=== PATIENT | female | born 1965 | race Caucasian/White ===

== ENCOUNTER 2017-07-16 21:20 | Emergency (ER) | payer SELFPAY ==
[~2017-07-16] VITALS: Ht 172.7 cm; Wt 63.0 kg
[~2017-07-16 21:20] MED LIST: FLV400 PO; MECL1TAB42 PO
[2017-07-16 21:27] VITALS: TEMP 36.6; Ht 172.7 cm; Wt 63.0 kg
[2017-07-16] MEDS ORDERED: LIDOCAINE/EPINEPH/TETRACAINE 1 EA SYR EXT STA (21:57)
[2017-07-16] MEDS ORDERED: LIDOCAINE/EPINEPHRINE 1% 20 ML VIAL INFIL STA (21:57)
--- NOTE | 2017-07-16 22:05 | EMERGENCY ROOM VISIT NOTE ---
ED Visit Note First contact with patient: 21:43 CHIEF COMPLAINT: Facial laceration HISTORY OF PRESENT ILLNESS: This 52-year-old female patient presents emergency department, ambulatory, with her , complaining of a laceration to the anterior chin, and through to the inner out of lip. The patient states "I tripped over my feet", and states she face planted into the corner of a trunk which contained [place] decorations. The incident occurred approximately 9 minutes prior to arrival. The patient states there was initially a significant amount of bleeding, however was relatively easy to control. The patient states initially after the incident, she was confused and fell like she "knocked myself silly". She states she was having difficulty keeping her balance, and was feeling slow and head. She denies any headache, loss of consciousness, vomiting, nausea, or dizziness. She does report some blurry vision. The patient does admit to drinking 2-3 glasses of wine today, and states she did smoke marijuana. Denies neck pain. The patient rates the pain as sharp and 8/ 10. The patient's tetanus shot is up to date. REVIEW OF SYSTEMS: A 6 system review of systems was completed with positives and pertinent negatives listed in the HPI. ALLERGIES: Clarithromycin MEDICATIONS: Soma, Restoril PMH: Vertigo, TMJ SOCIAL HISTORY: The patient lives locally with family. She admits to regular alcohol use. She admits to smoking marijuana consistently. She also smokes one pack of cigarettes per day. PHYSICAL EXAM: Vital Signs: Reviewed Nurse's notes, vital signs stable. GENERAL : This is a 52-year-old female, in no acute distress, well-developed, well- nourished. The patient's speech does appear slow and slurred, however her states this does not seem significantly different than normal. NEURO: The patient is alert and oriented to person place and time. No focal neurological defects. EYES: Pupils are slightly constricted, but round, equal , and react to light. EOMI. EARS: No hemotympanum. NECK: Supple. No cervical spine tenderness. FACE: No facial bone tenderness or mandibular tenderness. The mouth can open fully. The teeth are well aligned. The #9 tooth is chipped. SKIN: There are 2-2 cm lacerations on the anterior chin. The edges gape apart with traction. The lacerations do communicate into the mouth/inner lip. There is no active bleeding and no foreign material in the wound. There are no deep structures present. Capillary refill less than two seconds. Normal sensation to light and sharp touch. RADIOLOGY: CT OF THE HEAD WITHOUT CONTRAST FINDINGS: No acute intracranial hemorrhage, midline shift or mass effect is present. Ventricular system is normal. Basilar cisterns are patent. There are no extra-axial collections. Mild atrophy is noted. Coffey-white differentiation is maintained. A small right maxillary sinus air-fluid level is noted. The fluid is low attenuation. There is no calvarial fracture. The appearance of the temporomandibular joints is asymmetric. Specifically, the right mandibular condyle is not located within the glenoid fossa. In addition, there is chronic deformity of the right mandibular condyle. IMPRESSION: 1. No acute intracranial findings. 2. No calvarial fracture. 3. Asymmetric appearance of the temporomandibular joints with right mandibular condyle not located within the glenoid fossa. This could be correlated with physical exam to exclude unilateral TMJ dislocation. 4. Right maxillary sinusitis, possibly acute. CT OF THE CERVICAL SPINE WITHOUT CONTRAST FINDINGS: Alignment of the cervical spine is anatomic. Vertebral body heights are maintained. There is no acute fracture. The craniocervical junction is intact. There is no prevertebral edema. Minimal multilevel degenerative changes are present. Moderate emphysema is noted within visualized portions of the lung apices. IMPRESSION: 1. No acute cervical spine fracture or subluxation. 2. Moderate emphysema within visualized portions of the lung apices. CT FACIAL: No acute facial fractures seen, old mandible fracture, no obvious mandibular dislocation, sinus disease in the right maxillary sinus EMERGENCY DEPARTMENT COURSE: I examined the patient. Because the patient appears to be intoxicated, CT scan of the head and C-spine were ordered and reviewed by myself and radiologist. CT head showed a possible TMJ dislocation, and the patient complained of pain in the right TMJ, so CT face was ordered and reviewed as above. The patient does have history of mandibular fracture many years ago. Verbal consent was obtained to perform the procedure. LET gel was applied to the outer lip and allowed to sit for approximately 40 minutes. Using sterile technique the wound was cleansed with Betadine. The area was sterilely draped. 2 ml of 1% lidocaine with epinephrine was used to anesthetize the laceration within the mouth. Once the patient was anesthetized, the wound was copiously irrigated under pressure with sterile saline. The wound was explored and was as described above. The laceration was repaired using 5 simple interrupted 5-0 vicryl sutures with the wound edges being well approximated. The external lacerations were each repaired using 6 simple interrupted 6-0 nylon sutures, for a total of 12 sutures, with the wound edges being well approximated. The patient tolerated the procedure well. Hemostasis was achieved. The area was cleaned with sterile saline and dressed with bacitracin ointment. The patient was given her first dose of Amoxicillin here in the ED. She was given chlorhexidine mouthwash as well as benzocaine and dental wax to help with the pain. She did request opiate pain medication, but due to the patient's intoxication and drug/alcohol use this evening, I am not comfortable giving her narcotic pain medication. She was given 600mg ibuprofen. The patient was discharged home in good condition. I attest that I have personally reviewed the patient's current medication list. Patient was found to have normal blood pressure on screening and does not require follow-up. DIFFERENTIAL DIAGNOSIS: Laceration, contusion, dental fracture, facial bone fracture, TMJ dislocation, contusion, concussion, ICH, and others DIAGNOSIS: Facial laceration, dental fracture, fall from standing Current/Historical Medications Scheduled Amoxicillin (Amoxil), 1 CAP PO TID Carisoprodol (Soma), 350 MG PO TID Scheduled PRN Albuterol Sulfate (Proventil Hfa), 2 PUFFS INH UD PRN for SOB/Wheezing Alprazolam (Xanax), 1 MG PO DAILY PRN for Anxiety Fluconazole (Diflucan), 150 MG PO DAILY PRN for thrush Allergies Coded Allergies: Clarithromycin (Verified Allergy, Intermediate, RASH, 01/22/15) ABLE TO TAKE Z-RONALD, Vital Signs Date Time Temp Pulse Resp B/P (MAP) Pulse Ox O2 Delivery O2 Flow Rate FiO2 07/17/17 01:13 88 16 104/70 93 07/16/17 23:50 90 16 92/60 92 Room Air 07/16/17 21:27 36.6 107 18 116/86 91 Room Air Medications Administered Medications (Trade) Dose Ordered Sig/Olga Route Start Time Stop Time Status Last Admin Dose Admin Tetracaine/ Epinephrine/ Lidocaine (L.e.t. Gel 4%/ 1:100/0.5%) 1 ea NOW STAT EXT 07/16/17 21:57 07/16/17 22:00 DC 07/16/17 22:07 1 EA Amoxicillin (Amoxil 250MG Home Pack) 1 homepack UD ONCE PO 07/17/17 00:45 07/17/17 00:46 DC 07/17/17 00:45 1 HOMEPACK Amoxicillin (Amoxil Cap) 500 mg NOW STAT PO 07/17/17 00:33 07/17/17 00:35 DC 07/17/17 00:33 500 MG Ibuprofen (Motrin Tab) 600 mg NOW STAT PO 07/17/17 00:33 07/17/17 00:35 DC 07/17/17 00:33 600 MG Chlorhexidine Gluconate (Peridex Oral Soln) 15 ml BID STAT MT 07/17/17 00:35 07/17/17 00:36 DC 07/17/17 00:35 15 ML Amoxicillin (Amoxil Cap) 500 mg STK-MED ONCE PO 07/17/17 00:44 07/17/17 00:45 DC 07/17/17 00:44 500 MG Departure Information Impression Primary Impression: Facial laceration Additional Impression: Fall from standing Dispostion Home / Self-Care Condition GOOD Prescriptions Fluconazole (DIFLUCAN) 150 Mg Tab 150 MG PO DAILY Y for thrush for 1 Day, #1 TAB Prov: Alma Keller PA-C 07/17/17 Amoxicillin (AMOXIL) 500 Mg Cap 1 CAP PO TID for 5 Days, #15 CAP Prov: Alma Keller PA-C 07/17/17 Referrals Godwin Wilson M.D. (PCP) Patient Instructions ED Fx Tooth, ED Laceration Facial Sutr Tape, ED Laceration Mouth, [facility] Additional Instructions You have received 17 sutures on your anterior chin/interior lip. 5 of the sutures within the inner lip are dissolvable and will not need to be removed. 12 of the sutures are NOT dissolvable and WILL need to be removed by a health care provider in 4-6 days. You can return to the Emergency Department or contact your Primary Care Provider to have the sutures removed. Proper wound care is essential for adequate wound healing and infection prevention. You can shower and clean the wound with soap and water. Do not scour over the wound, pat dry with a towel. Do not submerse the wound (i.e. bathe or dish wash) until the sutures have been removed. You can use an antibiotic ointment with a dressing over the wound for the next 3-4 days. After this time you may leave the wound dry and open to the air. If crust develops over the wound you can use a Q-tip to apply a 1:1 peroxide:water solution to clean the wound. Look for signs of infection of the wound including: increased pain, swelling, foul discharge, streaking, or increased temperature. If any of these are noticed you should return to the Emergency Department for further assessment and treatment. As with any laceration you may have received nerve damage to the surrounding tissues. This damage may or may not be permanent. You should keep the area covered with sunscreen for the first 6 months to 1 year when at risk for exposure to help minimize scarring. You can also use scar reducing creams or Vitamin E oil to help minimize scarring. For pain control, you can use the following [id number] medicines (if >12 yo): Ibuprofen(Motrin, Advil) may be used for fever or pain. Use 600mg every six hours as needed. Take with food. Avoid using more than 2400mg in a 24 hour period. Do not use 2400mg per day for more than three consecutive days without physician direction. Prolonged inappropriate use can lead to stomach upset or ulcers. (AND/OR) Acetaminophen(Tylenol) may be used for fever or pain. Use 1000mg every six hours as needed. Avoid using more than 3000mg in a 24 hour period. You may use the topical dental ointment for your dental pain. Use the dental wax to protect the fractured tooth until evaluation by a dentist. Swish and spit with the mouthwash twice daily, after breakfast and supper, for 1 week. You were prescribed amoxicillin to be taken 3 times daily for 5 days. This is an antibiotic. All antibiotics have the potential to cause diarrhea. Stop this medication and contact a medical provider if you were to develop any significant adverse side effects including: wheezing, shortness of breath, passing out, vomiting, or a diffuse rash. Always take antibiotics as directed and COMPLETE the ENTIRE course regardless of the improvement of your symptoms. You were prescribed Diflucan to take ONLY if you experience thrush or candidiasis. Return to the emergency department if your symptoms worsen despite treatment course outlined above. Problem Qualifiers Primary Impression: Facial laceration Encounter type: initial encounter Qualified Codes: S01.81XA - Laceration without foreign body of other part of head, initial encounter Additional Impression: Fall from standing Encounter type: initial encounter Qualified Codes: W19.XXXA - Unspecified fall, initial encounter
[2017-07-16] MEDS ORDERED: CARI350T28 PO (22:13)
[2017-07-16] MEDS ORDERED: ALBUAER INH (22:13)
[2017-07-16] MEDS ORDERED: ALPR1TAB3 PO (22:13)
--- NOTE | 2017-07-16 22:44 | DIAGNOSTIC IMAGING REPORT ---
CT OF THE HEAD WITHOUT CONTRAST CLINICAL HISTORY: Head injury, intoxicated, slurred speech. COMPARISON STUDY: No previous studies for comparison. TECHNIQUE: Helical axial images of the head were obtained without IV contrast. Automated exposure control was utilized for the study. A dose lowering technique was utilized adhering to the principles of ALARA. FINDINGS: No acute intracranial hemorrhage, midline shift or mass effect is present. Ventricular system is normal. Basilar cisterns are patent. There are no extra-axial collections. Mild atrophy is noted. Coffey-white differentiation is maintained. A small right maxillary sinus air-fluid level is noted. The fluid is low attenuation. There is no calvarial fracture. The appearance of the temporomandibular joints is asymmetric. Specifically, the right mandibular condyle is not located within the glenoid fossa. In addition, there is chronic deformity of the right mandibular condyle. IMPRESSION: 1. No acute intracranial findings. 2. No calvarial fracture. 3. Asymmetric appearance of the temporomandibular joints with right mandibular condyle not located within the glenoid fossa. This could be correlated with physical exam to exclude unilateral TMJ dislocation. 4. Right maxillary sinusitis, possibly acute. Electronically signed by: Heriberto Fererra M.D. 07/16/2017 10:43 PM Dictated Date/Time: 07/16/2017 10:38 PM
--- NOTE | 2017-07-16 22:48 | DIAGNOSTIC IMAGING REPORT ---
CT OF THE CERVICAL SPINE WITHOUT CONTRAST CLINICAL HISTORY: Head injury, intoxicated, neck pain. COMPARISON STUDY: No previous studies for comparison. TECHNIQUE: Helical axial images of the cervical spine were obtained without IV contrast. Sagittal and coronal reconstructions were viewed. A dose lowering technique was utilized adhering to the principles of ALARA. FINDINGS: Alignment of the cervical spine is anatomic. Vertebral body heights are maintained. There is no acute fracture. The craniocervical junction is intact. There is no prevertebral edema. Minimal multilevel degenerative changes are present. Moderate emphysema is noted within visualized portions of the lung apices. IMPRESSION: 1. No acute cervical spine fracture or subluxation. 2. Moderate emphysema within visualized portions of the lung apices. Electronically signed by: Heriberto Ferrera M.D. 07/16/2017 10:47 PM Dictated Date/Time: 07/16/2017 10:43 PM
[2017-07-17] MEDS ORDERED: AMOXICILLIN 500 MG CAP PO STA (00:33)
[2017-07-17] MEDS ORDERED: IBUPROFEN 600 MG TAB PO STA (00:33)
[2017-07-17] MEDS ORDERED: CHLORHEXIDINE GLUCONATE 0.12% 480 ML MT STA (00:35)
[2017-07-17] MEDS ORDERED: AMOXICILLIN 250 MG CAP PO ONE (00:44)
[2017-07-17] MEDS ORDERED: AMOXICILLIN HOME PACK 250 MG/TAB PO ONE (00:45)
[2017-07-17] MEDS ORDERED: AMOX500C3 PO (00:57)
[2017-07-17] MEDS ORDERED: FLUC150T PO (00:57)
[2017-07-17 01:13] VITALS: BP 104/70; PULSE 88; O2SAT 93
--- NOTE | 2017-07-17 07:38 | DIAGNOSTIC IMAGING REPORT ---
CT SCAN OF THE FACIAL BONES WITHOUT IV CONTRAST CLINICAL HISTORY: Intoxication. Head injury. Clinical concern for right temporomandibular joint injury. COMPARISON STUDY: CT of the brain performed concurrently on 07/16/2017. TECHNIQUE: High-resolution CT scan of the facial bones is performed. Images are reviewed in the axial, sagittal, and coronal planes. IV contrast was not administered for this examination. A dose lowering technique was utilized adhering to the principles of ALARA. CT DOSE: 660.96 mGy.cm FINDINGS: The skeletal structures are well mineralized. There is no evidence of facial bone fracture. The bony orbits are intact and the orbital contents are within normal limits. The zygomatic arches, nasal bones, and pterygoid plates are preserved. There is anterior dislocation of the right temporomandibular joint. The left temporomandibular joint is in appropriate position. The maxilla and mandible are intact. Deformity right mandible condyle may represent the sequelae of remote trauma. There are no layering blood products within the paranasal sinuses. There is an air-fluid level in the right maxillary antrum. A tiny retention cyst is noted in the left maxillary antrum. Minimal secretions are seen in the right sphenoid sinus. The remaining paranasal sinuses and the mastoid air cells are clear. The visualized calvarium and upper cervical spine are maintained. Mild cervical spondylosis is noted. Partially imaged brain parenchyma is within normal limits. A periapical lucency is identified around a left maxillary molar seen on image #193. Soft tissue injury is noted overlying the right aspect of the mandible. IMPRESSION: 1. There is anterior dislocation seen at the right temporomandibular joint. 2. No facial bone fracture is identified. 3. A periapical lucency is noted involving a left maxillary molar. Follow-up with dentistry is recommended. 4. Soft tissue injury is noted overlying the right aspect of the mandible. 5. Paranasal sinus disease as above. 6. Deformity of the right mandibular condyle may be related to remote trauma. Electronically signed by: Michael Desir M.D. 07/17/2017 7:36 AM Dictated Date/Time: 07/17/2017 7:30 AM
== END 2017-07-17 01:15 | disposition home or self-care (01) ==
LOC: C.EDB 21:22 → C.EDD 07-17 01:15
DX: S01.81XA Laceration without foreign body of other part of head, initial encounter (principal); S02.5XXA Fracture of tooth (traumatic), initial encounter for closed fracture; W01.198A Fall on same level from slipping, tripping and stumbling with subsequent striking against other object, initial encounter; F17.210 Nicotine dependence, cigarettes, uncomplicated

== ENCOUNTER 2017-07-24 09:52 | Emergency (ER) | payer SELFPAY ==
[~2017-07-24] VITALS: Ht 172.7 cm; Wt 63.1 kg
[~2017-07-24 09:52] MED LIST changes: +ALBUAER INH; +ALPR1TAB3 PO; +CARI350T28 PO; -FLV400 PO; -MECL1TAB42 PO
[2017-07-24 09:54] VITALS: TEMP 36.5; Ht 172.7 cm; Wt 63.1 kg
--- NOTE | 2017-07-24 10:49 | EMERGENCY ROOM VISIT NOTE ---
ED Visit Note First contact with patient: 10:29 CHIEF COMPLAINT: Suture removal HPI: This patient returns to the ED today for removal of sutures that were placed 8 days ago. There has been no swelling, redness, or drainage from the wound. The patient feels like the laceration is healing well. She is concerned because she states she was unaware of TMJ dislocation until approximately 5 days after the injury and would like to know why this was not addressed while she was here that night. REVIEW OF SYSTEMS: A complete 10 point review of systems was reviewed with the patient with pertinent positives and negatives as per history of present illness. All else were negative. PMH: The patient is healthy; there is no significant medical or surgical history. SOCIAL HISTORY: Patient lives locally with family. She denies drug, alcohol use. PHYSICAL EXAM: Vital Signs: Reviewed Nurse's notes. There is a sutured wound on the anterior chin with no signs of infection. There is no erythema, swelling , or tenderness. EMERGENCY DEPARTMENT COURSE: The sutures were removed without any difficulty and there was no separation of the wound edges. I discussed with the patient that [facility] had reviewed the CT scan and did not note any dislocation, so the dislocation was not noted until radiology here over read the scan next day. The patient was contacted by the RN real estate sales supervisor, and did not answer her phone. The first time the real estate sales supervisor was successful at discussing the case with the patient was several days after the incident. I discussed with the patient that when she was here, she was very difficult to examine due to her mental state. She states she was having difficulty mentating properly for several days after the accident and was unaware of the damage done to the jaw. She states she continues to be in excruciating pain, and her dentist provided her with Tylenol #3 which she would like refilled. She also states it is early for her Soma refill, but she has taken all of the medication already. She requests a refill of this as well. I advised her that I would not refill these medications and that she will need to be seen by her PCP for ongoing pain management. Discharge instructions reviewed and the patient was discharged home in good condition. I attest that I have personally reviewed the patient's current medication list. Patient was found to have normal blood pressure on screening and does not require follow-up. Differential diagnosis includes dehiscence, laceration follow-up, removal of sutures, jaw dislocation, and others DIAGNOSIS: Healing laceration and suture removal Current/Historical Medications Scheduled Carisoprodol (Soma), 350 MG PO TID Scheduled PRN Albuterol Sulfate (Proventil Hfa), 2 PUFFS INH UD PRN for SOB/Wheezing Alprazolam (Xanax), 1 MG PO DAILY PRN for Anxiety Allergies Coded Allergies: Clarithromycin (Verified Allergy, Intermediate, RASH, 01/22/15) ABLE TO TAKE Z-RONALD, Vital Signs Date Time Temp Pulse Resp B/P (MAP) Pulse Ox O2 Delivery O2 Flow Rate FiO2 07/24/17 11:03 85 16 95 07/24/17 09:54 36.5 100 17 160/95 95 Room Air Departure Information Impression Primary Impression: Encounter for removal of sutures Additional Impression: Facial laceration Dispostion Home / Self-Care Condition GOOD Referrals No Doctor, Assigned (PCP) Patient Instructions ED Wound Check Sutr Remove No Infec, [employer] [facility] [place] Additional Instructions You were seen in the emergency department today for a suture removal. These were removed without complications. You may use vitamin E oil on the laceration to help prevent scarring. Please keep the wound clean and dry. As discussed, you need to follow up outpatient with her primary care provider, dentist, and/or maxillofacial surgeon to discuss ongoing pain management and refill of your Soma. Ibuprofen(Motrin, Advil) may be used for fever or pain. Use 600mg every six hours as needed. Take with food. Avoid using more than 2400mg in a 24 hour period. Do not use 2400mg per day for more than three consecutive days without physician direction. Prolonged inappropriate use can lead to stomach upset or ulcers. (AND/OR) Acetaminophen(Tylenol) may be used for fever or pain. Use 1000mg every six hours as needed. Avoid using more than 3000mg in a 24 hour period. As discussed, [facility] did not note TMJ dislocation. This was noted with the radiologist at [facility] the next morning. This is why you did not receive notification/why the dislocation was not addressed the night of the accident. Attempts were made on the to contact you with no answer. Please follow-up with maxillofacial surgery regarding ongoing care associated with the dislocation. Return to the ED for intractable pain, inability to open/close the mouth, fever , chills, or other concerning symptoms. Problem Qualifiers Additional Impression: Facial laceration Encounter type: subsequent encounter Qualified Codes: S01.81XD - Laceration without foreign body of other part of head, subsequent encounter
[2017-07-24 11:03] VITALS: BP 153/91; PULSE 85; O2SAT 95
== END 2017-07-24 11:04 | disposition home or self-care (01) ==
LOC: C.EDB 09:54 → C.EDD 11:04
DX: S01.81XD Laceration without foreign body of other part of head, subsequent encounter (principal); X58.XXXD Exposure to other specified factors, subsequent encounter; Z88.1 Allergy status to other antibiotic agents

== ENCOUNTER 2021-01-21 07:40 | Inpatient (IN) ==
[2021-01-21] MEDS ORDERED: SODIUM CHLORIDE 0.9% 1000ML 1,000 ML IV ONE (08:03)
[2021-01-21] MEDS ORDERED: ACETAMINOPHEN 1,000 MG/100 ML VIAL IV STA (08:06)
[2021-01-21] MEDS ORDERED: dexAMETHasone**PF** 10 MG/ML VIAL IV ONE (08:06)
--- NOTE | 2021-01-21 08:13 | Emergency Department Note ---
Impression & Plan Bilateral leg weakness, Bilateral leg paresthesia, Misuse of prescription only drugs ED Provider Note NAME: AGAPITO STRAUSS AGE: 55 SEX: F ARRIVES VIA: Ambulance INFORMANT: Patient, ED PROVIDER(S): Mihir Tran MD CHIEF COMPLAINT: chest pain, weakness PLAN: Disposition: Admit MEDICAL DECISION MAKING: The patient is a pleasant 55-year-old woman with a past medical history of asthma, anxiety who presents to the emergency department for evaluation of progressive worsening numbness and tingling with the evolution of weakness and both legs as well as her report of numbness and tingling her lower abdomen. She reports she feels her symptoms began with tingling in her feet and have been steadily moving upward. She reports having intermittent chest tightness as well with these symptoms that has been constant since waking up this morning. She reports she had a PCP appointment this morning but was unable to walk and so EMS was called. The patient reports she called her sister initially who opened the door to allow EMS to enter the home. Patient was seen in emergency department for the symptoms on 01/17 with unremarkable work-up including CT of the lumbar spine. She denies any cough, congestion, shortness of breath, nausea, vomiting, diarrhea or constipation. She does feel as though she had to urinate this morning but was not unable to walk to the bathroom. She also wonders if she moved her bowels on the way here but in the end feels as though she only passed gas. Denies any prior history of similar symptoms. She denies any known tick bites. She reports drinking alcohol infrequently and denies daily use. Of note, the patient's sister later called and did inform the nurse of her concern regarding her awareness that the patient recently filled prescriptions for Xanax and carisoprodol at the end of December for 90 tablets each for her month supply which the patient has used completely. Patient reports she was using these because of her burning and tingling in her feet. On arrival patient anxious appearing no acute stress, afebrile stable vital signs. She appears clinically dry. She has 4/5 strength in bilateral lower extremities. Reflexes are 1-2+ bilaterally. There is no clonus. She has 5/5 strength in bilateral upper extremities. Intact [id number] and alternating palms. EKG without overt acute ischemia. Chest x-ray negative for acute cardiopulmonary process. WBC, H/H and platelets within normal limits. Chemistry without metabolic acidosis. Potassium 3.1 electrolytes otherwise unremarkable. LFTs without significant abnormality. Troponin negative/undetectable. Lipase is not elevated. UA without evidence of infection. Serum alcohol undetectable. Lyme screen was negative. COVID-[address] of the head and C-spine negative for acute process. CTA of the chest and abdomen/pelvis was performed. No acute findings were identified. Note is made of "mild ectasia of the ascending thoracic aorta which measures up to 3.6 cm in diameter." Given the persistent of the patient's lower extremity weakness which does show objective weakness on exam reasonable to admit the patient for further management. Guillain-Don not likely given intact reflexes. Given the patient's admitted misuse of her prescribed muscle relaxer suspect this is likely the etiology to her objective weakness. Case was discussed with CHARLES Ortiz with [place]. Osor[place] [facility] [place], who will evaluate the patient for admission. Triage Nursing notes reviewed and agree them. Prior medical records reviewed Vital Signs: reviewed and remarkable for no significant abnormalities Differential diagnosis: Infection, dehydration, metabolic abnormality, hypo/hyperglycemia, electrolyte disturbance, anemia, hypoxia, cardiac sources, intracerebral event, toxicologic, neurologic, as well as other pathologies. ER treatment provided: See below. Diagnostics interpreted by me: ECG: Normal sinus rhythm, 83 bpm, no ectopy, left posterior fascicular block, nonspecific ST and T wave abnormality, no overt ST elevation. QRS 82, QTc 430. Cardiac Monitoring: An order for continuous cardiac monitoring was placed and demonstrated Normal sinus rhythm, 83 bpm, no ectopy. Laboratory studies: See below Imaging studies: See below Consultation(s): CHARLES Ortiz with Dr. [place] [facility] [place], who will evaluate the patient for admission. HPI: The patient is a pleasant 55-year-old woman with a past medical history of asthma, anxiety who presents to the emergency department for evaluation of progressive worsening numbness and tingling with the evolution of weakness and both legs as well as her report of numbness and tingling her lower abdomen. She reports she feels her symptoms began with tingling in her feet and have been steadily moving upward. She reports having intermittent chest tightness as well with these symptoms that has been constant since waking up this morning. She reports she had a PCP appointment this morning but was unable to walk and so EMS was called. The patient reports she called her sister initially who opened the door to allow EMS to enter the home. Patient was seen in emergency department for the symptoms on 01/17 with unremarkable work-up including CT of the lumbar s pine. She denies any cough, congestion, shortness of breath, nausea, vomiting, diarrhea or constipation. She does feel as though she had to urinate this morning but was not unable to walk to the bathroom. She also wonders if she moved her bowels on the way here but in the end feels as though she only passed gas. Denies any prior history of similar symptoms. She denies any known tick bites. She reports drinking alcohol infrequently and denies daily use. Of note, the patient's sister later called and did inform the nurse of her concern regarding her awareness that the patient recently filled prescriptions for Xanax and carisoprodol at the end of December for 90 tablets each for her month supply which the patient has used completely. Patient reports she was using these because of her burning and tingling in her feet. ROS: See above HPI for pertinent positives & negatives. A total of 10 systems reviewed and were otherwise negative. PAST MEDICAL HISTORY:See Below PAST SURGICAL HISTORY:See Below FAMILY HISTORY:See Below SOCIAL HISTORY:See Below HOME MEDICATIONS:See Below ALLERGIES:See Below VITALS:See Below PHYSICAL EXAMINATION: GENERAL: Awake, alert, anxious-appearing, in no distress HENT: Normocephalic, atraumatic. Oropharynx with dry mucous membranes and otherwise unremarkable. EYES: Normal conjunctiva. Sclera non-icteric. EOMI. No nystamgus. PEARRL. NECK: Supple. No nuchal rigidity. FROM. No JVD. RESPIRATORY: Clear to auscultation. CARDIAC: Regular rate, normal rhythm. Extremities warm and well perfused. Pulses equal. ABDOMEN: Soft, non-distended. No tenderness to palpation. No rebound or guarding. No masses. RECTAL: Deferred. MUSCULOSKELETAL: Chest examination reveals no tenderness. The back is symmetrical on inspection without obvious abnormality. There is no CVA tenderness to palpation. No joint edema. LOWER EXTREMITIES: Calves are equal size bilaterally and non-tender. No edema. No discoloration. NEURO: Cranial nerves II-XII grossly intact. 5/5 strength in SILT in bilateral upper extremities. 4/5 strength and SI LT bilateral lower extremities. DTRs 1- 2+ bilateral lower extremities. No clonus. Intact [id number]-btid and alternating palms. SKIN: No rash or jaundice noted. Mihir Tran MD Past Med/Surg History Medical History Adrenal nodule Aortic ectasia, thoracic Asthma DJD (degenerative joint disease) Rib fracture Smoker Social History Smoking Status: Current every day smoker Tobacco Type: Cigarettes Second Hand Exposure: Yes; Do You Dip or Chew Tobacco: No; Tobacco Cessation Education Requested by Patient: No Hx Alcohol Use: Yes (occasionally) Alcohol type: wine Hx Substance Use: Yes Last Used Substance Other:: 20 years ago Substance Use Type Other:: barbituates Preferred Language: Irish Communication Ability: Effective Lieutenant Ballistics Required: No Beliefs That Will Affect Care: Yazidi Yazidi Beliefs: Jehovah'S Witness Current Living Situation: Family and Other Current Living Situation Comment: Left domestic partner in December, now staying with sister Other Information That Helps Us Care for You: No Feels Safe at Home: Yes Safety Concerns: Feels Safe At This Time Assistive Devices: Cane and Glasses Assistive Devices Comment: Cane at home Allergies Allergies Allergy/AdvReac Type Severity Reaction Status Date / Time clarithromycin Allergy Intermediate RASH Verified 01/21/21 08:18 Home Meds Home Medications Medication Instructions Recorded Confirmed acetaminophen 500 mg tablet 1,000 mg PO TID PRN 12/29/20 01/21/21 (Tylenol Extra Strength) albuterol sulfate 90 mcg/actuation 2 puff INHALATION QID PRN 12/29/20 01/21/21 aerosol inhaler alprazolam 1 mg tablet 1 mg PO TID PRN 12/29/20 01/21/21 carisoprodol 350 mg tablet 350 mg PO TID 12/29/20 01/21/21 ibuprofen 200 mg tablet 600 - 800 mg PO Q6H PRN 12/29/20 01/21/21 Results & Data (ED) Vital Signs Vital Signs - 24 hr 01/21/21 07:45 01/21/21 07:52 01/21/21 08:00 Temperature 36.8 C Temperature Source Oral Pulse Rate 85 85 102 H Pulse Rate from SpO2 Sensor 85 87 Respiratory Rate 16 18 19 Blood Pressure 106/77 106/77 109/79 Blood Pressure Mean 86 86 89 Pulse Oximetry 98 99 100 Oxygen Delivery Method Room Air Sepsis Recent Fever Within 48 Hours No Sepsis New/Unexplained Change in Mental Status No Sepsis Action Taken by Nursing No Action Required 01/21/21 08:21 01/21/21 08:33 01/21/21 09:00 Temperature Temperature Source Pulse Rate 94 H Pulse Rate from SpO2 Sensor Respiratory Rate 16 Blood Pressure Blood Pressure Mean Pulse Oximetry 100 Oxygen Delivery Method Room Air Sepsis Recent Fever Within 48 Hours Sepsis New/Unexplained Change in Mental Status Sepsis Action Taken by Nursing 01/21/21 09:35 01/21/21 10:00 01/21/21 10:30 Temperature Temperature Source Pulse Rate 72 68 75 Pulse Rate from SpO2 Sensor 68 75 Respiratory Rate 14 16 19 Blood Pressure 120/84 133/87 Blood Pressure Mean 96 102 Pulse Oximetry 95 97 Oxygen Delivery Method Sepsis Recent Fever Within 48 Hours Sepsis New/Unexplained Change in Mental Status Sepsis Action Taken by Nursing 01/21/21 11:00 Temperature Temperature Source Pulse Rate 67 Pulse Rate from SpO2 Sensor 68 Respiratory Rate 16 Blood Pressure 133/84 Blood Pressure Mean 100 Pulse Oximetry 96 Oxygen Delivery Method Sepsis Recent Fever Within 48 Hours Sepsis New/Unexplained Change in Mental Status Sepsis Action Taken by Nursing Laboratory Data Attestation: I reviewed the patient's lab results. Result diagrams: 01/21/21 08:26 01/21/21 08:26 Lab Results 01/21/21 01/21/21 01/21/21 Range/Units 08:20 08:25 08:26 WBC 6.91 (4.8-10.8) K/uL RBC 4.49 (4.2-5.4) M/uL Hgb 14.3 (12.0-16.0) g/dL Hct 41.6 (37-47) % MCV 92.7 (80-100) fL MCH 31.8 (25-34) pg MCHC 34.4 (32-36) g/dL RDW Std Deviation 50.7 H (36.4-46.3) fL RDW Coeff of Senthil 15.1 H (11.5-14.5) % Plt Count 360 (130-400) K/uL MPV 9.5 (7.4-10.4) fL Immature Gran % (Auto) 0.1 % Neut % (Auto) 55.5 % Lymph % (Auto) 36.3 % [place] % (Auto) 7.4 % Eos % (Auto) 0.4 % Baso % (Auto) 0.3 % Neut # (Auto) 3.83 (1.4-6.5) K/uL Lymph # (Auto) 2.51 (1.2-3.4) K/uL [place] # (Auto) 0.51 (0.11-0.59) K/uL Eos # (Auto) 0.03 (0-0.5) K/uL Baso # (Auto) 0.02 (0-0.2) K/uL Immature Gran # (Auto) 0.01 (0.00-0.02) K/uL ESR (0-30) mm/hr Sodium (136-145) mmol/L Potassium (3.5-5.1) mmol/L Chloride (98-107) mmol/L Carbon Dioxide (21-32) mmol/L Anion Gap (3-11) BUN (7-18) mg/dl Creatinine (0.6-1.2) mg/dl Est Cr Clr Drug Dosing ml/min Est GFR ( Amer) ml/min Est GFR (Non-Af Amer) ml/min BUN/Creatinine Ratio (10-20) Glucose (70-99) mg/dl Estimat Average Glucose mg/dl Hemoglobin A1c (4.5-5.6) % Calcium (8.5-10.1) mg/dl Phosphorus (2.5-4.9) mg/dl Magnesium (1.8-2.4) mg/dl Total Bilirubin (0.2-1) mg/dl AST (15-37) U/L ALT (12-78) U/L Alkaline Phosphatase (45-117) U/L Total Creatine Kinase 72 (26-192) U/L Troponin I (0-0.045) ng/ml C-Reactive Protein 1.51 H (0-0.29) mg/dl Total Protein (6.4-8.2) gm/dl Albumin (3.4-5.0) gm/dl Globulin (2.5-4.0) gm/dl Albumin/Globulin Ratio (0.9-2) Lipase (73-393) U/L TSH (0.300-4.500) uIu/ml Random Cortisol mcg/dl Urine Color Yellow Urine Appearance Clear (Clear) Urine pH 6.0 (4.5-7.5) Ur Specific [place] 1.015 (1.000-1.030) Urine Protein Negative (Negative) Urine Glucose (UA) Negative (Negative) Urine Ketones Negative (Negative) Urine Blood Negative (Negative) Urine Nitrite Negative (Negative) Urine Bilirubin Negative (Negative) Urine Urobilinogen Negative (Negative) Ur Leukocyte Esterase Negative (Negative) Ethyl Alcohol mg/dL (0-3) mg/dl Lyme Disease IgG Ab (Negative) Lyme Disease IgM Ab (Negative) COVID-19 Eval Order SARS-CoV-2 (PCR) (Negative) 01/21/21 01/21/21 01/21/21 Range/Units 08:26 08:26 08:26 WBC (4.8-10.8) K/uL RBC (4.2-5.4) M/uL Hgb (12.0-16.0) g/dL Hct (37-47) % MCV (80-100) fL MCH (25-34) pg MCHC (32-36) g/dL RDW Std Deviation (36.4-46.3) fL RDW Coeff of Senthil (11.5-14.5) % Plt Count (130-400) K/uL MPV (7.4-10.4) fL Immature Gran % (Auto) % Neut % (Auto) % Lymph % (Auto) % [place] % (Auto) % Eos % (Auto) % Baso % (Auto) % Neut # (Auto) (1.4-6.5) K/uL Lymph # (Auto) (1.2-3.4) K/uL [place] # (Auto) (0.11-0.59) K/uL Eos # (Auto) (0-0.5) K/uL Baso # (Auto) (0-0.2) K/uL Immature Gran # (Auto) (0.00-0.02) K/uL ESR (0-30) mm/hr Sodium 138 (136-145) mmol/L Potassium 3.1 L (3.5-5.1) mmol/L Chloride 107 (98-107) mmol/L Carbon Dioxide 23 (21-32) mmol/L Anion Gap 8.0 (3-11) BUN 13 (7-18) mg/dl Creatinine 0.70 (0.6-1.2) mg/dl Est Cr Clr Drug Dosing 87.0 ml/min Est GFR ( Amer) 113.8 ml/min Est GFR (Non-Af Amer) 98.2 ml/min BUN/Creatinine Ratio 18.2 (10-20) Glucose 92 (70-99) mg/dl Estimat Average Glucose mg/dl Hemoglobin A1c (4.5-5.6) % Calcium 8.8 (8.5-10.1) mg/dl Phosphorus 2.5 (2.5-4.9) mg/dl Magnesium 2.3 (1.8-2.4) mg/dl Total Bilirubin 0.4 (0.2-1) mg/dl AST 12 L (15-37) U/L ALT 18 (12-78) U/L Alkaline Phosphatase 65 (45-117) U/L Total Creatine Kinase 72 (26-192) U/L Troponin I < 0.015 (0-0.045) ng/ml C-Reactive Protein (0-0.29) mg/dl Total Protein 7.4 (6.4-8.2) gm/dl Albumin 3.7 (3.4-5.0) gm/dl Globulin 3.6 (2.5-4.0) gm/dl Albumin/Globulin Ratio 1.0 (0.9-2) Lipase 264 (73-393) U/L TSH 2.200 (0.300-4.500) uIu/ml Random Cortisol mcg/dl Urine Color Urine Appearance (Clear) Urine pH (4.5-7.5) Ur Specific [place] (1.000-1.030) Urine Protein (Negative) Urine Glucose (UA) (Negative) Urine Ketones (Negative) Urine Blood (Negative) Urine Nitrite (Negative) Urine Bilirubin (Negative) Urine Urobilinogen (Negative) Ur Leukocyte Esterase (Negative) Ethyl Alcohol mg/dL < 3.0 (0-3) mg/dl Lyme Disease IgG Ab Negative (Negative) Lyme Disease IgM Ab Negative (Negative) COVID-19 Eval Order SARS-CoV-2 (PCR) (Negative) 01/21/21 01/21/21 01/21/21 Range/Units 08:26 08:26 08:40 WBC (4.8-10.8) K/uL RBC (4.2-5.4) M/uL Hgb (12.0-16.0) g/dL Hct (37-47) % MCV (80-100) fL MCH (25-34) pg MCHC (32-36) g/dL RDW Std Deviation (36.4-46.3) fL RDW Coeff of Senthil (11.5-14.5) % Plt Count (130-400) K/uL MPV (7.4-10.4) fL Immature Gran % (Auto) % Neut % (Auto) % Lymph % (Auto) % [place] % (Auto) % Eos % (Auto) % Baso % (Auto) % Neut # (Auto) (1.4-6.5) K/uL Lymph # (Auto) (1.2-3.4) K/uL [place] # (Auto) (0.11-0.59) K/uL Eos # (Auto) (0-0.5) K/uL Baso # (Auto) (0-0.2) K/uL Immature Gran # (Auto) (0.00-0.02) K/uL ESR 12 (0-30) mm/hr Sodium (136-145) mmol/L Potassium (3.5-5.1) mmol/L Chloride (98-107) mmol/L Carbon Dioxide (21-32) mmol/L Anion Gap (3-11) BUN (7-18) mg/dl Creatinine (0.6-1.2) mg/dl Est Cr Clr Drug Dosing ml/min Est GFR ( Amer) ml/min Est GFR (Non-Af Amer) ml/min BUN/Creatinine Ratio (10-20) Glucose (70-99) mg/dl Estimat Average Glucose 108 mg/dl Hemoglobin A1c 5.4 (4.5-5.6) % Calcium (8.5-10.1) mg/dl Phosphorus (2.5-4.9) mg/dl Magnesium (1.8-2.4) mg/dl Total Bilirubin (0.2-1) mg/dl AST (15-37) U/L ALT (12-78) U/L Alkaline Phosphatase (45-117) U/L Total Creatine Kinase (26-192) U/L Troponin I (0-0.045) ng/ml C-Reactive Protein (0-0.29) mg/dl Total Protein (6.4-8.2) gm/dl Albumin (3.4-5.0) gm/dl Globulin (2.5-4.0) gm/dl Albumin/Globulin Ratio (0.9-2) Lipase (73-393) U/L TSH (0.300-4.500) uIu/ml Random Cortisol mcg/dl Urine Color Urine Appearance (Clear) Urine pH (4.5-7.5) Ur Specific [place] (1.000-1.030) Urine Protein (Negative) Urine Glucose (UA) (Negative) Urine Ketones (Negative) Urine Blood (Negative) Urine Nitrite (Negative) Urine Bilirubin (Negative) Urine Urobilinogen (Negative) Ur Leukocyte Esterase (Negative) Ethyl Alcohol mg/dL (0-3) mg/dl Lyme Disease IgG Ab (Negative) Lyme Disease IgM Ab (Negative) COVID-19 Eval Order Covid19 at [facility] SARS-CoV-2 (PCR) (Negative) 01/21/21 01/21/21 Range/Units 08:40 10:47 WBC (4.8-10.8) K/uL RBC (4.2-5.4) M/uL Hgb (12.0-16.0) g/dL Hct (37-47) % MCV (80-100) fL MCH (25-34) pg MCHC (32-36) g/dL RDW Std Deviation (36.4-46.3) fL RDW Coeff of Senthil (11.5-14.5) % Plt Count (130-400) K/uL MPV (7.4-10.4) fL Immature Gran % (Auto) % Neut % (Auto) % Lymph % (Auto) % [place] % (Auto) % Eos % (Auto) % Baso % (Auto) % Neut # (Auto) (1.4-6.5) K/uL Lymph # (Auto) (1.2-3.4) K/uL [place] # (Auto) (0.11-0.59) K/uL Eos # (Auto) (0-0.5) K/uL Baso # (Auto) (0-0.2) K/uL Immature Gran # (Auto) (0.00-0.02) K/uL ESR (0-30) mm/hr Sodium (136-145) mmol/L Potassium (3.5-5.1) mmol/L Chloride (98-107) mmol/L Carbon Dioxide (21-32) mmol/L Anion Gap (3-11) BUN (7-18) mg/dl Creatinine (0.6-1.2) mg/dl Est Cr Clr Drug Dosing ml/min Est GFR ( Amer) ml/min Est GFR (Non-Af Amer) ml/min BUN/Creatinine Ratio (10-20) Glucose (70-99) mg/dl Estimat Average Glucose mg/dl Hemoglobin A1c (4.5-5.6) % Calcium (8.5-10.1) mg/dl Phosphorus (2.5-4.9) mg/dl Magnesium (1.8-2.4) mg/dl Total Bilirubin (0.2-1) mg/dl AST (15-37) U/L ALT (12-78) U/L Alkaline Phosphatase (45-117) U/L Total Creatine Kinase (26-192) U/L Troponin I (0-0.045) ng/ml C-Reactive Protein (0-0.29) mg/dl Total Protein (6.4-8.2) gm/dl Albumin (3.4-5.0) gm/dl Globulin (2.5-4.0) gm/dl Albumin/Globulin Ratio (0.9-2) Lipase (73-393) U/L TSH (0.300-4.500) uIu/ml Random Cortisol 14.51 mcg/dl Urine Color Urine Appearance (Clear) Urine pH (4.5-7.5) Ur Specific [place] (1.000-1.030) Urine Protein (Negative) Urine Glucose (UA) (Negative) Urine Ketones (Negative) Urine Blood (Negative) Urine Nitrite (Negative) Urine Bilirubin (Negative) Urine Urobilinogen (Negative) Ur Leukocyte Esterase (Negative) Ethyl Alcohol mg/dL (0-3) mg/dl Lyme Disease IgG Ab (Negative) Lyme Disease IgM Ab (Negative) COVID-19 Eval Order SARS-CoV-2 (PCR) NEGATIVE (Negative) Administered Medications Alprazolam (Alprazolam 0.5 Mg Tablet) 1 mg PO TID PRN PRN Reason: Anxiety Stop: 02/20/21 13:20 Last Admin: 01/21/21 20:28 Dose: 1 mg Documented by: [id number] Admin: 01/21/21 15:03 Dose: 1 mg Documented by: [id number] Enoxaparin Sodium (Enoxaparin Inj 40 Mg/0.4 Ml Syr) 40 mg SQ Q24H KATHLEEN Stop: 02/20/21 13:20 Last Admin: 01/21/21 14:53 Dose: Not Given Documented by: [id number] Ibuprofen (Ibuprofen 600 Mg Tab) 600 mg PO Q6H PRN PRN Reason: Pain Stop: 02/20/21 13:20 Last Admin: 01/21/21 15:03 Dose: 600 mg Documented by: [id number] Discontinued Medications Dexamethasone Sodium Phosphate (DexamethasonePf 10 Mg/Ml Vial) 10 mg IV NOW ONE Stop: 01/21/21 08:07 Last Admin: 01/21/21 08:36 Dose: 10 mg Documented by: [id number] Sodium Chloride (Nss 1000ml) 1,000 mls @ 999 mls/hr IV .Q1H1M ONE Stop: 01/21/21 09:03 Last Infusion: 01/21/21 09:29 Dose: 0 mls/hr Documented by: [id number] Admin: 01/21/21 08:36 Dose: 999 mls/hr Documented by: [id number] Acetaminophen (Ofirmev) 1,000 mg in 100 mls @ 400 mls/hr IV NOW STA Stop: 01/21/21 08:20 Last Infusion: 01/21/21 09:29 Dose: 0 mls/hr Documented by: [id number] Admin: 01/21/21 08:36 Dose: 400 mls/hr Documented by: [id number] Ioversol (Optiray 320 125ml) 120 ml IV ONCE ONE Stop: 01/21/21 08:49 Last Admin: 01/21/21 08:48 Dose: 120 ml Documented by: [id number] Potassium Chloride (Potassium Chloride Crtab 20 Meq Tabcr) 20 meq PO NOW STA Stop: 01/21/21 11:49 Last Admin: 01/21/21 13:00 Dose: 20 meq Documented by: [id number] Imaging Data Radiologist's Impression: Lumbar Spine MRI 01/21/21 11:05 MR lumbar spine wo con CLINICAL HISTORY: weakness, parasthesias, discordiantion TECHNIQUE: Sagittal and axial T1, T2 and STIR images were obtained. COMPARISON STUDY: No previous studies for comparison. OBSERVATIONS: The vertebral bodies and posterior elements appear intact. There is no abnormal bony signal present to suggest a marrow replacement process. Evaluation is limited due to motion artifact. Focal area of increase T1 and T2 signal within S2 vertebra is not seen on fat suppressed sequence likely representing focal area of fat accumulation or hemangioma. Multilevel Schmorl nodes and disc desiccation are seen. Also anterior osteophytes are seen at multiple levels. L1-2: No disc protrusions or extrusions. No evidence of spinal canal or neural foraminal compromise. L2-3: No disc protrusions or extrusions. No evidence of spinal canal or neural foraminal compromise. L3-4: No disc protrusions or extrusions. No evidence of spinal canal or neural foraminal compromise. L4-5: Minimal diffuse bulge of the disc causing flattening of thecal sac. Bilateral neuroforamina are patent. L5-S1: Minimal bulge of the disc causing flattening of thecal sac. Bilateral neuroforamina are patent. The conus medullaris is not visualized. Few small perineural cysts are seen within central canal at the level of S2. IMPRESSION: 1. Minimal degenerative changes of the spine without significant central canal or neural foraminal stenosis. 2. Small perineural cysts at the level of S2. Limited exam due to mild motion artifact. 3. The rest of findings as above. ACT 112: Negative or not required by law. The above report was generated using voice recognition software. It may contain grammatical, syntax or spelling errors. Electronically signed by: Marsha Garner DO 01/21/2021 1:15 PM Discharge Plan Visit Data Chief Complaint: Chest Pain ED Provider: Mihir Tran Discharge Problem: Bilateral leg weakness, Bilateral leg paresthesia, Misuse of prescription only drugs Patient Disposition: Admitted As Inpatient Discharge Instructions Interventions: ED Discharge Assessment Last Done: 01/21/21 13:00
--- NOTE | 2021-01-21 08:47 | XRay Report ---
XR chest 1V portable CLINICAL HISTORY: Chest Pain COMPARISON STUDY: December 29, 2020. FINDINGS: No pneumothorax. No pleural effusion. No large infiltrates or consolidative lesions are seen. Lung volumes are increased with slight flatte donato of right and left hemidiaphragm. Cardiomediastinal silhouette is within normal limits in size. No significant pulmonary vascular congestion.. Osseous structures: Mild osteopenia. Vertebral bodies are not well seen. IMPRESSION: 1. COPD pattern. ACT 112: Negative or not required by law. The above report was generated using voice recognition software. It may contain grammatical, syntax o r spelling errors. Electronically signed by: Marsha Garner DO 01/21/2021 8:46 AM
[2021-01-21] MEDS ORDERED: OPTIRAY 320 125ml IV ONE (08:48)
[2021-01-21 08:50] LABS: Basophils # (auto) 0.02 K/uL (0-0.2); Basophils % (auto) 0.3 %; Eosinophils # (auto) 0.03 K/uL (0-0.5); Eosinophils % (auto) 0.4 %; Hematocrit (blood only) 41.6 % (37-47); Hemoglobin 14.3 g/dL (12.0-16.0); Immature Granulocytes # (auto) 0.01 K/uL (0.00-0.02); Immature Granulocytes % (auto) 0.1 %; Lymphocytes # (auto) 2.51 K/uL (1.2-3.4); Lymphocytes % (auto) 36.3 %; Mean Corpuscular Hemoglobin 31.8 pg (25-34); Mean Corpuscular Hgb Conc 34.4 g/dL (32-36); Mean Corpuscular Volume 92.7 fL (80-100); Mean Platelet Volume 9.5 fL (7.4-10.4); Monocytes # (auto) 0.51 K/uL (0.11-0.59); Monocytes % (auto) 7.4 %; Neutrophils # (auto) 3.83 K/uL (1.4-6.5); Neutrophils % (auto) 55.5 %; Platelet Count 360 K/uL (130-400); RDW Coefficient of Variation 15.1 % (11.5-14.5); RDW Standard Deviation 50.7 fL (36.4-46.3); Red Blood Count 4.49 M/uL (4.2-5.4); White Blood Count 6.91 K/uL (4.8-10.8)
[2021-01-21 09:11] LABS: Appearance Urine Clear (Clear); Bilirubin Urine Negative (Negative); Blood Urine Negative (Negative); Color Urine Yellow; Glucose Urine UA Negative (Negative); Ketones Urine Negative (Negative); Leukocyte Esterase Urine Negative (Negative); Nitrite Urine Negative (Negative); Protein Urine Negative (Negative); Specific Gravity Urine 1.015 (1.000-1.030); Urobilinogen Urine Negative (Negative)
[2021-01-21 09:12] LABS: Albumin Level 3.7 gm/dl (3.4-5.0); Aspartate Aminotransferase 12 U/L (15-37); BUN Creatinine Ratio 18.2 (10-20); Blood Urea Nitrogen 13 mg/dl (7-18); Calcium 8.8 mg/dl (8.5-10.1); Carbon Dioxide 23 mmol/L (21-32); Chloride 107 mmol/L (98-107); Est GFR (African American) 113.8 ml/min; Est GFR (Non-African American) 98.2 ml/min; Glucose 92 mg/dl (70-99); Lipase 264 U/L (73-393); Magnesium 2.3 mg/dl (1.8-2.4); Potassium 3.1 mmol/L (3.5-5.1); Sodium 138 mmol/L (136-145)
[2021-01-21 09:20] LABS: Alanine Aminotransferase 18 U/L (12-78); Alkaline Phosphatase 65 U/L (45-117); Bilirubin,Total 0.4 mg/dl (0.2-1); Creatine Kinase 72 U/L (26-192); Globulin 3.6 gm/dl (2.5-4.0); Phosphorus 2.5 mg/dl (2.5-4.9); Total Protein 7.4 gm/dl (6.4-8.2); Troponin I < 0.015 ng/ml (0-0.045)
[2021-01-21 09:36] LABS: Lyme Ab IgG w/WB Rflx Negative (Negative); Lyme Ab IgM w/WB Rflx Negative (Negative)
--- NOTE | 2021-01-21 09:45 | CT Scan Report ---
CT SCAN OF THE BRAIN WITHOUT IV CONTRAST CLINICAL HISTORY: Bilateral lower extremity weakness and numbness. COMPARISON STUDY: CT of the brain dated 07/16/2017. TECHNIQUE: Unenhanced axial CT scan of the brain is performed from the vertex to the skull base. A d ose lowering technique was utilized adhering to the principles of ALARA. The skull base was scanned t wice due to motion artifact. FINDINGS: Brain parenchyma: The brain parenchyma is normal in appearance. There is no hemorrhage, mass effect, or evidence of acute territorial ischemia by CT criteria. Coffey-white matter differentiation is preser funmilayo. No extra-axial fluid collection is seen. Ventricles, sulci, cisterns: Normal in configuration. Intracranial vasculature: The visualized intracranial vasculature at the skull base is normal in appe arance. Calvarium: Unremarkable. Sinuses and mastoids: There is trace mucosal thickening within the ethmoid sinuses. The remaining vis ualized paranasal sinuses are clear. There is trace left mastoid effusion. The right mastoid air cell s are well pneumatized. Orbits: The bony orbits are grossly intact. IMPRESSION: No acute intracranial abnormality. ACT 112: Negative or not required by law. Electronically signed by: Michael Desir M.D. 01/21/2021 9:43 AM
--- NOTE | 2021-01-21 09:46 | CT Scan Report ---
CT cervical spine wo con CLINICAL HISTORY: 55 years-old Female with BLE weaknesss/numbness, neck/back/chest pain. Acute neck pain without reported trauma COMPARISON: Head CT of same day, CT cervical spine 07/16/2017 TECHNIQUE: Multiple axial CT images of the cervical spine were obtained without contrast. A dose low ering technique was utilized adhering to the principles of ALARA. FINDINGS: No acute cervical spine fracture or subluxation. Mostly mild multilevel facet arthrosis wit h minimal spondylitic spurring. No prevertebral edema.. Evaluation of the central canal and neurofora dayanna is better assessed by MRI. Emphysema. No pneumothorax. IMPRESSION: No acute cervical spine fracture or subluxation. ACT 112: Negative or not required by law. The above report was generated using voice recognition software. It may contain grammatical, syntax o r spelling errors. Electronically signed by: Sabas Warren M.D. 01/21/2021 9:44 AM
--- NOTE | 2021-01-21 10:06 | CT Scan Report ---
CT ANGIOGRAM OF THE CHEST COMBO; CT ANGIOGRAM OF THE ABDOMEN AND PELVIS CLINICAL HISTORY: Neck pain. Thoracic back pain. Atypical chest pain. Generalized abdominal pain. COMPARISON STUDY: Chest x-ray dated 01/21/2021. Lumbar spine CT dated 01/17/2021. TECHNIQUE: Unenhanced axial CT scan of the chest is performed. Subsequently, following the IV adminis tration of 120 cc of Optiray 320, CT angiogram of the chest, abdomen, and pelvis was performed from t he thoracic inlet to the proximal femora. Images are reviewed in the axial, sagittal, and coronal rk jon. 3-D MIPS images are created and assessed. IV contrast was administered without complication. A d ose lowering technique was utilized adhering to the principles of ALARA. Examinations are degraded by motion artifact. CT DOSE: 1822.18 mGy.cm FINDINGS: CHEST: Thyroid: Imaged portions of the thyroid gland are normal in size and attenuation. Thoracic aorta: There is mild atherosclerotic change is noted in the thoracic aorta. No intramural he matoma is seen on the unenhanced series. There is mild ectasia of the ascending thoracic aorta which measures up to 3.6 cm in diameter. The remainder of the thoracic aorta is normal in caliber, and the arch demonstrates standard 3-vessel anatomy. No dissection is seen. The arch vessels are widely paten t. Pulmonary vasculature: The pulmonary trunk is normal in caliber. There are no filling defects identif ied within the main, lobar, or segmental pulmonary arteries to suggest pulmonary embolus. Heart: The heart is normal in size and without pericardial effusion. Lungs and pleural spaces: Evaluation of the lung parenchyma is significantly degraded by motion artif act. Emphysematous change is noted. There is no airspace consolidation typical for pneumonia or pleur al effusion. Dependent atelectasis is seen at the lung bases. The trachea and central airways are xiao ar. There are scattered calcified granulomas. Mediastinum: There is no mediastinal lymphadenopathy. Susan: Clear. Axillae: There is no axillary lymphadenopathy. Bony thorax: No destructive bony lesions are identified. There are subacute appearing/healing left la teral 7th and 8th rib fractures. Soft tissues: There are at least 2 ovoid nodules in the left breast which contain calcifications. The se measure up to 1.6 cm as seen on images #123 and #139. ABDOMEN AND PELVIS: Liver: The contrast-enhanced liver is normal in size, contour, and attenuation. There is no intrahepa tic biliary ductal dilatation. The main portal veins appear patent. Gallbladder: Changes adenomyomatosis are noted in the gallbladder fundus. The gallbladder is otherwis e normal as imaged. Spleen: Normal in size and attenuation noting heterogeneous arterial phase enhancement. Pancreas: Unremarkable. Adrenal glands: Bilateral adrenal nodules measure up to 2.[address] criteria for fat-containing a denomas. Kidneys: The contrast enhanced kidneys are normal in size and without hydronephrosis. The kidneys enh ance symmetrically. A retroaortic left renal vein is incidentally noted. Abdominal aorta and iliac arteries: The abdominal aorta is normal in course and caliber. Noting mild to moderate atherosclerotic change. The abdominal aorta and iliac arteries are widely patent. No diss ection is seen. There is less than 50% focal stenosis of the right common femoral artery seen on imag e #[id number]. Major branches of the abdominal aorta: The celiac trunk, superior mesenteric, and inferior mesenteric arteries are widely patent. Hepatic arterial anatomy is conventional. The splenic artery is patent. Single bilateral renal arteries are widely patent. Bowel: There is rectosigmoid fecal retention and moderate constipation. No bowel obstruction is seen. The appendix is well-visualized and normal. Peritoneum: There is no intraperitoneal free air or abdominal ascites. Lymphadenopathy: None. Pelvic viscera: The bladder is normal as visualized. There are calcified uterine fibroids. No adnexal lesion is seen. Skeletal structures: No destructive bony lesions are seen. IMPRESSION: 1. Motion degraded examination. 2. There is mild ectasia of the ascending thoracic aorta which measures up to 3.6 cm in diameter. 3. Otherwise normal CT angiogram of the thoracic and abdominal aorta. No dissection is identified. 4. Unremarkable CT angiogram of the major branches of the abdominal aorta. 5. There is no evidence of pulmonary embolus in the main, lobar, or segmental pulmonary arteries. 6. Emphysema. 7. There is no airspace consolidation typical for pneumonia or pleural effusion. 8. There are no acute infectious or inflammatory findings in the abdomen or pelvis. 9. Rectosigmoid fecal retention and moderate constipation. 10. There are subacute appearing/healing left-sided rib fractures. Correlate for point tenderness. 11. There are at least 2 ovoid nodules in the left breast which contain calcifications. These are not well assessed by CT, and if not recently performed consider nonemergent mammographic follow-up. 12. Additional findings as above. ACT 112: Negative or not required by law. Electronically signed by: Michael Desir M.D. 01/21/2021 10:05 AM
[2021-01-21 11:18] LABS: C Reactive Protein 1.51 mg/dl (0-0.29)
[2021-01-21] MEDS ORDERED: POTASSIUM CHLORIDE CRTAB 20 MEQ TABCR PO STA (11:48)
[2021-01-21 11:56] LABS: Estimated Average Glucose 108 mg/dl; Hemoglobin A1C 5.4 % (4.5-5.6)
--- NOTE | 2021-01-21 12:08 | History & Physical Report ---
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 -wheezes, -rales, -rhonchi. Symmetrical chest rise. No increase work of breathing. No respiratory distress. Cardiac: RRR, -mrg. Radial pulses intact and symmetrical. Abdominal: Nontender, nondistended, soft. BS present. MOTOR: RUE: 5/5 Shoulder internal rotation, external rotation, flexion, extension, abduction, adduction 5/5 Elbow flexion/extension, wrist flexion/extension 5/5 rehab care assistant strength, finger flexion/extension, interosseus LUE: 5/5 Shoulder internal rotation, external rotation, flexion, extension, abduction, adduction 5/5 Elbow flexion/extension, wrist flexion/extension 5/5 rehab care assistant strength, finger flexion/extension, interosseus RLE: 5/5 to hip flexion/extension, knee flexion/extension, ankle dorsiflexion/plantarflexion LLE: 5/5 to hip flexion/extension, knee flexion/extension, ankle dorsiflexion/plantarflexion REFLEXES: 2/4 patellar DTR without asymmetry. SENSORY: Normal to touch, pinprick, vibration, temp in upper and lower extremities without deficit or asymmetry No hemineglect, no extinction to double sided stimulation (visual & tactile) Romberg absent GAIT: Stepping gait appreciated All labs and images reviewed Luis Eduardo is a 55yo F who presents with worsening lower extremity subjective weakness and paresthesia. Pt had reportedly run out of 30 day supply of carisoprodol recently filled, ddx includes structural compression, infection, and overmedication. No red flags on exam, MRI-spine pending, neurology consulted. Hold muscle relaxers as above. ESR/CRP/Lyme for AI and infectious etiology pending. PG Care Time/CCT Total # of Minutes Spent Total Time Spent with Patient: Total time spent is greater than 50% in coordination of care (as documented) at patient's floor/unit and/or counseling patient: Coding Level of Care Code 75707 Initial Inpt Care Lvl 3 Diagnoses Leg paresthesia R20.2 Abnormal gait R26.9 DJD (degenerative joint disease) M19.90 Asthma J45.909 Smoker F17.200 Aortic ectasia, thoracic I77.810 Adrenal nodule E27.8 Breast nodule N63.0
--- NOTE | 2021-01-21 13:17 | Magnetic Resonance Report ---
MR lumbar spine wo con CLINICAL HISTORY: weakness, parasthesias, discordiantion TECHNIQUE: Sagittal and axial T1, T2 and STIR images were obtained. COMPARISON STUDY: No previous studies for comparison. OBSERVATIONS: The vertebral bodies and posterior elements appear intact. There is no abnormal bony signal present t o suggest a marrow replacement process. Evaluation is limited due to motion artifact. Focal area of increase T1 and T2 signal within S2 vertebra is not seen on fat suppressed sequence lik cindi representing focal area of fat accumulation or hemangioma. Multilevel Schmorl nodes and disc desiccation are seen. Also anterior osteophytes are seen at multipl e levels. L1-2: No disc protrusions or extrusions. No evidence of spinal canal or neural foraminal compromise. L2-3: No disc protrusions or extrusions. No evidence of spinal canal or neural foraminal compromise. L3-4: No disc protrusions or extrusions. No evidence of spinal canal or neural foraminal compromise. L4-5: Minimal diffuse bulge of the disc causing flattening of thecal sac. Bilateral neuroforamina are patent. L5-S1: Minimal bulge of the disc causing flattening of thecal sac. Bilateral neuroforamina are patent . The conus medullaris is not visualized. Few small perineural cysts are seen within central canal at t he level of S2. IMPRESSION: 1. Minimal degenerative changes of the spine without significant central canal or neural foraminal s tenosis. 2. Small perineural cysts at the level of S2. Limited exam due to mild motion artifact. 3. The rest of findings as above. ACT 112: Negative or not required by law. The above report was generated using voice recognition software. It may contain grammatical, syntax o r spelling errors. Electronically signed by: Marsha Garner DO 01/21/2021 1:15 PM
[2021-01-21] MEDS ORDERED: ALBUTEROL HFA 8 GM INHALER INH PRN (13:21)
[2021-01-21] MEDS: ENOXAPARIN INJ 40 MG/0.4 ML SYR SQ SCH ×2 (14:53)
[2021-01-21] MEDS: IBUPROFEN 600 MG TAB PO PRN (15:03)
[2021-01-21] MEDS: ALPRAZolam 0.5 MG TABLET PO PRN ×2 (15:03→20:28)
--- NOTE | 2021-01-21 18:06 | Electrocardiogram Report ---
Test Reason : Blood Pressure : / mmHG Vent. Rate : 083 BPM Atrial Rate : 083 BPM P-R Int : 132 ms QRS Dur : 082 ms QT Int : 366 ms P-R-T Axes : 000 116 142 degrees QTc Int : 430 ms Normal sinus rhythm Abnormal right axis deviation Left posterior fascicular block Nonspecific ST and T wave abnormality Abnormal ECG When compared with ECG of 29-DEC-2020 08:26, Left posterior fascicular block is now Present T wave inversion now evident in Lateral leads Cannot exclude limb lead reversal Confirmed by Stoney Katz ([id number]) on 01/21/2021 6:06:16 PM Referred By: REFERRED SELF Confirmed By:Mk Katz
[2021-01-21 21:34] LABS: Amphetamines+Metham, Urine Neg (Neg); Barbiturates, Urine Neg (Neg); Benzodiazepine, Urine Pos (Neg); Cocaine, Urine Neg (Neg); MDMA (Ecstacy), Urine Neg (Neg); Methadone, Urine Neg (Neg); Opiate, Urine Neg (Neg); Phencyclidine, Urine Neg (Neg)
[2021-01-22] MEDS: IBUPROFEN 600 MG TAB PO PRN ×4 (00:03→18:02)
[2021-01-22] MEDS ORDERED: guaiFENesin/DEXTROM SYRUP 100MG/10MG 5ML UDC PO ONE (02:02)
[2021-01-22] MEDS: ALPRAZolam 0.5 MG TABLET PO PRN ×2 (04:54→20:31)
[2021-01-22 06:57] LABS: Basophils # (auto) 0.03 K/uL (0-0.2); Basophils % (auto) 0.4 %; Eosinophils # (auto) 0.09 K/uL (0-0.5); Eosinophils % (auto) 1.1 %; Hematocrit (blood only) 36.5 % (37-47); Hemoglobin 12.5 g/dL (12.0-16.0); Immature Granulocytes # (auto) 0.01 K/uL (0.00-0.02); Immature Granulocytes % (auto) 0.1 %; Lymphocytes # (auto) 4.24 K/uL (1.2-3.4); Lymphocytes % (auto) 49.9 %; Mean Corpuscular Hgb Conc 34.2 g/dL (32-36); Mean Corpuscular Volume 93.4 fL (80-100); Mean Platelet Volume 9.7 fL (7.4-10.4); Monocytes # (auto) 0.53 K/uL (0.11-0.59); Monocytes % (auto) 6.2 %; Neutrophils # (auto) 3.59 K/uL (1.4-6.5); Neutrophils % (auto) 42.3 %; Platelet Count 323 K/uL (130-400); RDW Coefficient of Variation 15.3 % (11.5-14.5); RDW Standard Deviation 51.5 fL (36.4-46.3); Red Blood Count 3.91 M/uL (4.2-5.4); White Blood Count 8.49 K/uL (4.8-10.8)
[2021-01-22 07:38] LABS: BUN Creatinine Ratio 41.3 (10-20); Creatinine Clr Calc Pharmacy 114.9 ml/min; Est GFR (African American) 124.8 ml/min; Est GFR (Non-African American) 107.6 ml/min; Magnesium 2.3 mg/dl (1.8-2.4); Potassium 3.8 mmol/L (3.5-5.1)
--- NOTE | 2021-01-22 08:54 | Neurology Consultation ---
Date of Consultation January 22, 2021 Assessment & Plan (1) Numbness and tingling: (2) Abnormal gait: (3) Hyper reflexia: this patient has a progressive neurologic condition over the last 3-4 weeks consisting of ascending dysesthesias and hyperesthesia that has gone from the soles of her feet, now up to mid to upper thoracic spine. She has hyperreflexia diffusely and upgoing toes suggesting myelopathy (or other upper motor neuron issue). Although she has a sensation of weakness and her gait is unstable, she does not have any focal individual muscle weakness of significance. there is some pain in her feet and she is experiencing pain in her mid to upper thoracic spine. she has some early bowel incontinence. Guillain-Margaret syndrome is excluded with the hyper reflexia. This ascending dysesthesia with upper motor neuron signs Is more likely a cord lesion in the upper thoracic spine. Cervical spine cannot be excluded as the lesion can always be a little higher than you think it is. I do not believe this is a brain lesion given the bilateral symmetry of the issue. She has no other symptom or sign referable to the cerebral hemispheres or brainstem. Recommendations: 1. MRI of the cervical and thoracic spines with and without contrast. 2. I see no need for an LP or other testing at this time but may consider, depending on her clinical course and the above test results. 3. there is no need for neurologic medication treatment at this time but if we find a cord lesion we will initiate steroids and transfer to a neurosurgeon. 4. physical and occupational therapy. Overall, I spent a total of 80 minutes with this case including review of records, review of MRI films, direct evaluation the patient at bedside, and discussion of the case with the patient and RN at bedside as well as Dr. Hogan, including differential diagnosis and treatment options. History of Present Illness Reason for Consultation: Patient is a 55-year-old, who I was asked to see the request of CLAY Ortiz, for neurologic evaluation regarding progressive ascending dysesthesias other symptoms Requesting Physician: Trevor WILLIAMSON Attending Physician: Sara Hogan MD History of Present Illness this patient has a history of episodic vertigo starting in 2001. she will get any type of vertiginous episode about 3 times a month lasting about 5-10 minutes. He will consist of some sudden onset of vertigo when she changes position company by some nausea and balance issues. About once every 2 months, the episode is "bad" and she can have nausea vomiting and have symptoms up to 24 hours. Her most recent episode was about 2 weeks ago and these episodes have not been changing. Patient tells me that she had no issues in her lower extremities and no dysesthesias prior to December of 2020. in early December she had some stress due to relationship issues and she moved to visit and live with her sister. In mid December, she had an episode of chest pain and possible panic attack. The pain radiated to her upper thoracic spine. she was treated in the emergency room released. Chest x-ray and rib x-ray revealed nondisplaced acute left lateral 7th rib fracture. In mid December she started out with a somewhat insidious onset of burning dysesthesias in the soles of her feet, progressing over 1 week, to numbness and tingling in the soles of the feet. Over time, this numbness and tingling dysesthesia gradually moved up her legs bilaterally and symmetrically. It would start off as a strip and then be the entire area front and back in a circumferential fashion with each leg be bilaterally symmetrical. It moved up to her groin including her vagina and buttocks and then up into her abdomen and low back. Again, the dysesthesias were circumferential. Yesterday, it is just below the breasts bilaterally. She can occasionally have pain in her feet of a sharp shooting nature particularly in her toes. She feels somewhat weak in her legs and her balance is off. She does not have urinary incontinence but does have "leaking gas" from her rectum with some occasional incontinence of stool when she urinates. Starting yesterday she was having numbness and dysesthesias in her hands which is persistent today. She denies cervical spine pain but has had a significant upper posterior thoracic spine pain since december. She went to the emergency room January 17 with low back and leg pain and weakness. CT scan of the lumbar spine showed multilevel degenerative disc disease no significant stenoses. they treated her and she was released. She return to the emergency room January 21. At 0745, on January 21, temperature was 36.8, pulse 85 and regular, respiratory rate 18, blood pressure 106/77, and O2 saturation 99 percent. On neurologic examination her legs were 4/5. CBC and Chem profile were unremarkable. CK was 72. TSH was 2.2. Lyme antibody titer was negative. CRP was 1.51. Urinalysis was unremarkable and alcohol was negative. Tox screen revealed benzodiazepines. CTA of her chest abdomen and pelvis revealed some mild ascending thoracic aorta dictation of 3.6 centimeters and some emphysema. There was fecal retention/constipation and subacute /healing left sided rib fractures. CT of the cervical spine was unremarkable. CT scan of the head was unremarkable. MRI of the lumbar spine reveals some minimal degenerative changes without any significant stenoses. This morning CBC and sed rate were unremarkable. Hemoglobin A1c was 5.4. Chemistry profile shows a mildly elevated BUN. She feels about the same as yesterday with no increase or new symptoms. Allergies Allergy/AdvReac Type Severity Reaction Status Date / Time clarithromycin Allergy Intermediate RASH Verified 01/21/21 08:18 Home Medications Medication Instructions Recorded Confirmed Type acetaminophen 500 mg tablet 1,000 mg PO TID PRN 12/29/20 01/21/21 History (Tylenol Extra Strength) albuterol sulfate 90 mcg/actuation 2 puff INHALATION QID PRN 12/29/20 01/21/21 History aerosol inhaler alprazolam 1 mg tablet 1 mg PO TID PRN 12/29/20 01/21/21 History carisoprodol 350 mg tablet 350 mg PO TID 12/29/20 01/21/21 History ibuprofen 200 mg tablet 600 - 800 mg PO Q6H PRN 12/29/20 01/21/21 History Patient History Medical History Adrenal nodule Aortic ectasia, thoracic Asthma DJD (degenerative joint disease) Rib fracture Smoker Surgical History S/P wisdom tooth extraction Family History Mother , age 86 with Parkinson's disease Primary Parkinson's disease Father , age 87 with atrial fibrillation Stroke Social History (Updated 01/22/21 @ 08:42 by Erasto Waggoner MD) Smoking Status: Current every day smoker Tobacco Type: Cigarettes Age Started Using Tobacco: 18; packs per day: 1; Second Hand Exposure: Yes; Do You Dip or Chew Tobacco: No; Tobacco Cessation Education Requested by Patient: No Hx Alcohol Use: Yes (occasionally) Alcohol type: beer and wine Alcohol Intake Frequency: Monthly or Less Alcohol Intake Frequency Comment: 4-5 drinks per day for 1 year, ending several months ago Hx Substance Use: Yes Last Used Substance Other:: 20 years ago Substance Use Type Other:: barbituates Preferred Language: Moldovan Communication Ability: Effective Injection Molding Operator Required: No Beliefs That Will Affect Care: Uatsdin Uatsdin Beliefs: Lutheran Current Living Situation: Family and Other Current Living Situation Comment: Left domestic partner in December, now staying with sister current occupational status: unemployed current occupation: former [employer] RN Other Information That Helps Us Care for You: No Feels Safe at Home: Yes Safety Concerns: Feels Safe At This Time Assistive Devices: Glasses Assistive Devices Comment: Cane at home Review of Systems Constitutional: + fatigue and + weakness; no fever Eyes: no diplopia, no eye pain and no worsening vision Ear, Nose, Mouth, Throat: no ear pain, no tinnitus, no hearing loss, no d izziness, no hoarseness and no dysphagia Respiratory: no cough and no dyspnea Cardiovascular: no chest pain, no palpitations and no lightheadedness Gastrointestinal: no abdominal pain, no nausea and no vomiting Genitourinary: no dysuria, no urinary frequency and no urinary incontinence Musculoskeletal: + back pain and + neck pain; no radicular pain, no joint pain and no myalgia Integumentary: no rash and no lesions Neurologic: + gait abnormality, + localized weakness, + tingling and + numbness; no generalized weakness, no tremor(s), no abnormal movements, no headache(s), no abnormal speech, no confusion and no memory loss Psychiatric: + anxiety; no depression, no irritability, no difficulty concentrating, no confusion and no hallucinations Endocrine: no fatigue and no flushing Hematologic / Lymphatic: no easy bleeding and no easy bruising Allergy / Immunological: no urticaria and no problem reported Exam (Neuro) Physical Exam: The patient is left-handed. The patient is awake, alert, and attentive. Speech is normal without any aphasia or dysarthria. The patient can name objects, repeat phrases, and has normal spontaneous speech. Mentation and thought processes are intact, with orientation to person, place and time, and normal fund of knowledge. Attention and concentration are normal. Mood and affect are normal and appropriate. General appearance and grooming are normal. Short and long-term memory are intact. The discs are sharp with positive venous pulsations bilaterally. Pupils are 4 mm bilaterally and reactive to light. Extraocular eye muscles are intact without nystagmus. Visual acuity and visual vernon seem normal grossly to confrontation. There are no deficits to sensation in the face in all 3 distributions of the fifth cranial nerve bilaterally. Corneal reflexes are positive bilaterally. Facial strength and symmetry was normal bilaterally. Hearing seems normal bilaterally. Palate moves well without asymmetry. There is normal sternocleidomastoid and trapezius (shoulder shrug) strength bilaterally. Tongue is midline with good strength bilaterally. Neck has a full range of motion without discomfort. There are no cervical bruits bilaterally. There are no cranial or ocular bruits. Heart is without murmur. There is a regular rhythm and rate. Cervical, thoracic, and lumbar spine are mildly tender to palpation. this is most particular in the upper thoracic over the spinous processes. Gait attempt was very unsteady and needed someone holding on to her. It was even worse with feet together eyes open. Steps were very cautious and unsteady. Stance sitting up in bed was fine. With outstretched arms there is no drift. There are no resting, postural, or action tremors. There is no ataxia with finger to nose testing. There is good f acility in the hands. No other abnormal involuntary movements are noted. Motor strength is 5/5 diffusely in the arms bilaterally including deltoids, biceps, triceps, brachioradialis, wrist flexors and extensors, fourdrinier wire weaver, and intrinsic hand muscles. Motor strength is 5/5 diffusely in the legs bilaterally including hip flexors, quadriceps, hamstrings, gastrocnemius, tibialis anterior, tibialis posterior, and Peroneii muscles. Toe extensors are normal and there is good bulk in the extensor digitorum brevis muscles bilaterally. Therefore, when I tested individual muscles she had essentially 5/5 strength with coaxing diffusely. The limbs have good tone without rigidity or spasticity. There is no atrophy noted in the muscles. Muscle bulk is normal, there is no tenderness to palpation, no myotonia to percussion, and no fasciculations seen. Sensory examination Reveals hyperesthesia to pin and touch diffusely in the feet, legs, abdomen and back up to upper thoracic. Hands have some decreased sensation to the wrists bilaterally. Reflexes are 3/4 in the biceps, triceps, brachioradialis, quadriceps, and Achilles tendons bilaterally. There were 3 beats of clonus at the ankles bilaterally Toes are upgoing on plantar stimulation on the right and equivocal to upgoing on the left. Peripheral pulses are present and of normal quality distally in all 4 limbs. There is no peripheral edema noted in the limbs. Results & Data ([facility] [place]) Vital Signs (Past 12 Hours) Vital Signs Temp Pulse Resp BP Pulse Ox 01/22/21 07:37 36.4 C L 66 18 109/69 98 01/21/21 23:50 36.6 C 77 18 101/67 94 PG Care Time/CCT Total # of Minutes Spent Total Time Spent with Patient: Total time spent is greater than 50% in coordination of care (as documented) at patient's floor/unit and/or counseling patient: Coding Level of Care Code 12331 Office/Outpt Visit, New Diagnoses Numbness and tingling R20.0; R20.2 Abnormal gait R26.9 Hyper reflexia R29.2 Time Spent (min) 80
[2021-01-22] MEDS ORDERED: ALPRAZolam 0.5 MG TABLET PO STA (10:31)
--- NOTE | 2021-01-22 10:45 | Magnetic Resonance Report ---
MR pelvis wo con HISTORY: 55 years-old Female Sacrum eval- numbness, parasthesias, weakness acute sacral pain with we akness COMPARISON: MRI lumbar spine of same day, CTA abdomen and pelvis 01/21/2021 TECHNIQUE: Multi planar multisequence MRI of the pelvis was obtained without the use of IV contrast FINDINGS: Motion degraded exam. Marked urinary bladder distention on the addictions therapist localizer images. No free fluid within the pelvis. The imaged lower lumbar spine and lower lumbar central canal appear unremarkable. Mild degenerative changes of the SI joints with minimal subchondral edema of the left SI joint, image 9 series 6. Bone marrow signal is otherwise unremarkable. There is no acute fracture, subluxation or osseous erosion. There is an 11 mm T1 hyperintense focus involving the S2 vertebral body suggestive of focal fatty marrow. IMPRESSION: 1. Motion degraded exam. No acute fracture. 2. Mild degenerative changes of the left SI joint. ACT 112: Negative or not required by law. The above report was generated using voice recognition software. It may contain grammatical, syntax o r spelling errors. Electronically signed by: Sabas Warren M.D. 01/22/2021 10:44 AM
[2021-01-22] MEDS: ENOXAPARIN INJ 40 MG/0.4 ML SYR SQ SCH (13:56)
--- NOTE | 2021-01-22 14:33 | Magnetic Resonance Report ---
MRI OF THE CERVICAL SPINE COMBO CLINICAL HISTORY: Bilateral dysesthesias. Hyperreflexia. Lower extremity tingling and numbness. COMPARISON STUDY: CT of the cervical spine dated 01/21/2021. TECHNIQUE: MRI of the cervical spine is performed utilizing various T1 and T2-weighted sequences in t he axial and sagittal planes. Contrast-enhanced sequences are acquired following the IV administratio n of 6 cc of Gadavist. The examination is significantly compromised by motion artifact. FINDINGS: Cervical spine: Vertebral body height and alignment are maintained throughout the cervical spine. Nor mal marrow signal intensity is maintained throughout the visualized bony structures. The atlantodenta l articulation is maintained. The spinous processes appear intact. No destructive bony lesion is seen . Intervertebral discs: There is mild degenerative disc desiccation. The disc spaces are maintained. Spinal cord: The cervical spinal cord is normal in morphology and signal intensity. No abnormal postc ontrast enhancement is identified. C2-C3: Unremarkable. C3-C4: Grossly unremarkable. This is not well assessed due to motion artifact. C4-C5: Grossly unremarkable. This is not well assessed due to motion artifact. C5-C6: Grossly unremarkable. This is not well assessed due to motion artifact. C6-C7: Grossly unremarkable. This is not well assessed due to motion artifact. C7-T1: Unremarkable. Soft tissues: The prevertebral and paraspinous soft tissues are normal as visualized. Brain parenchyma: Imaged brain parenchyma at the skull base is within normal limits. IMPRESSION: 1. Severely motion compromised examination. 2. There is no MRI evidence of fracture or ligamentous injury. 3. The cervical spinal cord is normal in morphology and signal intensity. No abnormal postcontrast en hancement is identified. 4. The central canal appears clear. Evaluation of spondylotic change is severely degraded. Dictated: 01/22/2021 1:48 PM Transcribed: 01/22/2021 2:25 PM Rachel [id number] [email or web address] Electronically signed by: Michael Desir M.D. 01/22/2021 2:32 PM
[2021-01-22] MEDS ORDERED: NICOTINE 21 MG/24 HR TDSY TD SCH (16:30)
[2021-01-22] MEDS ORDERED: diazePAM 5 MG TABLET PO PRN (16:47)
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
[2021-01-22] MEDS: ACETAMINOPHEN 325 MG TAB PO PRN (20:31)
[2021-01-22] MEDS: NICOTINE POLACRILEX 2 MG GUM MT PRN (23:24)
[2021-01-23] MEDS: IBUPROFEN 600 MG TAB PO PRN ×2 (05:31→14:06)
[2021-01-23] MEDS: ALPRAZolam 0.5 MG TABLET PO PRN ×3 (06:47→21:09)
[2021-01-23] MEDS: NICOTINE POLACRILEX 2 MG GUM MT PRN ×2 (06:48→21:10)
--- NOTE | 2021-01-23 08:32 | Neurology Progress Note ---
Date of Service January 23, 2021 Assessment & Plan (1) Numbness and tingling: (2) Abnormal gait: (3) Hyper reflexia: (4) B12 deficiency: (5) Sensory polyneuropathy: Plan: This patient has a progressive neurologic condition over the last 3-4 weeks consisting of ascending dysesthesias and hyperesthesia that has gone from the soles of her feet, now up to mid to upper thoracic spine. On neurologic examination, she has hyperreflexia diffusely and upgoing toes on the right suggesting myelopathy (or other upper motor neuron issue). in addition, she has evidence of large caliber sensory fiber loss with her marked vibratory sense loss in the feet. This has led to a sensory ataxic gait. Although she has a sensation of weakness and her gait is unstable, she does not have any focal individual muscle weakness of significance. There is some pain in her feet and she is experiencing pain in her mid to upper thoracic spine. she has some early bowel incontinence. Guillain-[place] syndrome is excluded with the hyper reflexia. This ascending dysesthesia with upper motor neuron signs is more likely a cord lesion in the thoracic spine , although the upper thoracic spine looked unremarkable with the MRI of the cervical spine. The MRI of the cervical spine was unremarkable neurologically also. In addition, B12 deficiency can cause a myelopathy. This could explain the large caliber sensory fiber loss. Typically, B12 deficiency gives decreased reflexes but there are case reports of hyper reflexia. Finally, the patient has a history of taking zinc supplementation. This can deplete copper and copper deficiency can cause a myelopathy such as this pictu re. Vitamin-E deficiency can cause this as well. I do not believe this is a brain lesion given the bilateral symmetry of the issue. She has no other symptom or sign referable to the cerebral hemispheres or brainstem. The etiology of the B12 deficiency is likely nutritional. She has no history of frequent nitrous oxide use ( or "Whippets"). her history of alcohol use and abuse earlier this year puts her at risk for vitamin and nutritional deficiencies. Recommendations: 1. MRI of the thoracic spine with and without contrast. 2. I see no need for an LP or MRI of the brain at this time 3. Check serum copper, iron, zinc, vitamin-E, vitamin B1, and vitamin B6 levels. 3. Replace B12, consider a 1000 micrograms IM, daily for 3 days, then weekly for 4 weeks (or other protocol) 4. Physical and occupational therapy. Overall, I spent a total of 75 minutes with this case including review of records, review of MRI films, direct evaluation the patient at bedside, and discussion of the case with the patient and RN at bedside as well as Dr. Hogan, including differential diagnosis and treatment options. Admission and Anticipated Discharge Date Admission Date: January 21, 2021 Subjective Patient continues to have numbness and tingling as before. She almost fell with help last night because of unsteady gait and feeling like her legs are buckling when she stands. She is not lightheaded or dizzy and has no pain or headache currently. She is sitting up in the bed , legs dangling, without difficulty. Blood pressure is 108/74. B12 level was low at 114. although the CBC yesterday was technically "normal", being a smoker and having typically a high H&H, she probably has a mild anemia. Total protein was in normal limits and a Hamilton is pending MRI of the cervical spine with without contrast was largely unremarkable except for some minor degenerative changes. There is no cord lesion. I can see the 1st 4 bones of the thoracic spine and there is no intramedullary lesion present there either. I reviewed these films. Patient tells me that she was taking zinc supplementation but is unsure of the dose. She was taking it regularly up until about a month ago and has been taking it sporadically since. Results & Data ([facility]) Vital Signs (Past 12 Hours) Vital Signs Temp Pulse Resp BP BP Pulse Ox 01/23/21 07:40 36.5 C 61 18 108/74 93 01/23/21 04:00 36.5 C 84 18 147/88 H 98 01/22/21 23:25 36.4 C L 66 18 144/81 H 97 Exam (Neuro) Physical Exam: She is awake and alert. Speech is without aphasia or dysarthria. Mood is normal affect is appropriate. Thought processes are intact with good long and short-term memory for conversation. Extraocular eye muscles are intact without nystagmus. There is no facial droop and tongue is midline. Coordination is normal in the arms without obvious tremor or ataxia with [id number] testing. She needs the assistance of at least 1 to stand up and her stance is poor eyes open. Taking steps is very difficult her legs tend to buckle and she is somewhat ataxic. Strength is 5/5 diffusely in all major muscle groups in the arms and legs both proximally distally when testing individual muscles. Tone is normal all limbs. Reflexes are 2-3/4 in the biceps, triceps, brachioradialis, quadriceps, and Achilles tendons bilaterally. There is no clonus today. Toes are upgoing on plantar stimulation on the right and downgoing on the left. There is marked vibratory sense loss in the feet bilaterally. PG Care Time/CCT Total # of Minutes Spent Total Time Spent with Patient: Total time spent is greater than 50% in coordination of care (as documented) at patient's floor/unit and/or counseling patient: Coding Level of Care Code 69420 Subseq Hosp Care Lvl 3 Diagnoses Numbness and tingling R20.0; R20.2 Abnormal gait R26.9 Hyper reflexia R29.2 B12 deficiency E53.8 Sensory polyneuropathy G60.8 Time Spent (min) 75 Comment Add modifiers as able
[2021-01-23] MEDS: CYANOCOBALAMIN 1000 MCG/ML VIAL IM SCH (10:05)
[2021-01-23] MEDS: ACETAMINOPHEN 325 MG TAB PO PRN (10:07)
[2021-01-23] MEDS ORDERED: GADOBUTROL 65ML VIAL IV ONE (13:21)
[2021-01-23 13:39] LABS: Ferritin 173.7 ng/ml (8-388)
--- NOTE | 2021-01-23 14:00 | Electrocardiogram Report ---
Test Reason : Blood Pressure : / mmHG Vent. Rate : 053 BPM Atrial Rate : 053 BPM P-R Int : 160 ms QRS Dur : 082 ms QT Int : 414 ms P-R-T Axes : 044 060 055 degrees QTc Int : 388 ms Sinus bradycardia with sinus arrhythmia Otherwise normal ECG When compared with ECG of 21-JAN-2021 07:47, Vent. rate has decreased BY 30 BPM Left posterior fascicular block is no longer Present Confirmed by Stoney Katz ([id number]) on 01/23/2021 1:59:39 PM Referred By: REFERRED SELF Confirmed By:Mk Katz
[2021-01-23] MEDS: ENOXAPARIN INJ 40 MG/0.4 ML SYR SQ SCH (14:05)
--- NOTE | 2021-01-23 14:24 | Magnetic Resonance Report ---
MRI OF THE THORACIC SPINE COMBO CLINICAL HISTORY: Bilateral dysesthesia. Hyperreflexia. Numbness in the feet. COMPARISON STUDY: Chest CT dated 01/21/2021. TECHNIQUE: MRI of the thoracic spine is performed utilizing various T1 and T2-weighted sequences in t he axial and sagittal planes. Contrast-enhanced sequences were acquired following the IV administrati on of 6 cc of Gadavist. The examination is severely compromised by motion artifact. This degrades rajiv gnostic utility FINDINGS: There are minimal chronic superior endplate compression deformities of T2, T3, and T4. Vert ebral body height is otherwise maintained throughout the thoracic spine. Alignment is preserved. Ther e is mild hyperkyphosis. The transverse and spinous processes are grossly intact. No destructive bony lesion is seen. Degenerative disc desiccation is seen throughout the thoracic spine. Tiny anterior o steophytes are seen throughout. There is no disc herniation or central canal stenosis. There is no ev idence of epidural fluid collection. The thoracic spinal cord is normal in morphology and signal inte nsity. No abnormal postcontrast enhancement is seen. The conus medullaris terminates at the level of L1. There is no MRI evidence of significant neural foraminal stenosis. The paraspinous soft tissues a re normal as visualized. The lung parenchyma is grossly unremarkable but not well evaluated by MRI. IMPRESSION: 1. Severely motion compromised examination. 2. No acute abnormality is seen. Dictated: 01/23/2021 1:38 PM Transcribed: 01/23/2021 2:00 PM Vanessa [id number] LINNEA_Peter Electronically signed by: Michael Desir M.D. 01/23/2021 2:23 PM
[2021-01-23 15:02] LABS: Appearance Urine Clear (Clear); Bilirubin Urine Negative (Negative); Blood Urine Negative (Negative); Color Urine Yellow; Glucose Urine UA Negative (Negative); Ketones Urine Negative (Negative); Leukocyte Esterase Urine Negative (Negative); Nitrite Urine Negative (Negative); Protein Urine Negative (Negative); Specific Gravity Urine 1.013 (1.000-1.030); Urobilinogen Urine Negative (Negative); pH Urine 5.5 (4.5-7.5)
--- NOTE | 2021-01-23 16:19 | Hospitalist Progress Note ---
Date of Service January 23, 2021 Assessment & Plan (1) Sensory polyneuropathy: Plan: Presented with ascending paraesthesia/dysesthesia bilaterally along with hyperreflexia developing over 3-4 weeks. No weakness, no fevers or evidence of infection TSH normal, folate normal, CK normal, ESR and CRP not elevated. UDS with benzos which she is on at home B12 level severely low at 114 She denies running out of xanax/withdrawal symptoms MRI C-spine, T-spine, L-spine, pelvis all without cord pathology Appreciate Neuro consult-->could be all from B12 deficiency, but will also check B1, B6, Fe studies, Copper, Vitamin E,and Zinc levels - Ortho spine consulted - MRI- Small perineural cysts at the level of S2- discussed with Ortho SPine-these would not cause these symptoms replace Vit B12 PT/OT recommending rehab will likely take months to have improvement in neuropathy (2) B12 deficiency: Plan: B12 severely low at 114 replace with B12 1000mcg IM daily x 3 days and then po B12 should receive IM B12 once monthly after discharge (3) Abnormal gait: Plan: As above- PT/OT consult (4) Hyper reflexia: Plan: as above, could be secondary to B12 deficiency (5) Urinary retention with incomplete bladder emptying: Plan: required straight cath x 2 for large volumes PVR has been having urgency and hesitancy at home for 2 weeks ?secondary to B12 def/neuropathy? benzo use? replace B12 straight cath for PVR>400mL UA negative (6) DJD (degenerative joint disease): Plan: DJD of lumbar spine and cervical spine - Tylenol and Motrin for pain - Hold SOMA - Consider adding Lidocaine patch if needed (7) Asthma: Plan: Smoker current - Continue Albuterol INH 2 puffs q4-6 prn (8) Smoker: Plan: As above - smoking cessation -added Nicotine gum (9) Aortic ectasia, thoracic: Plan: BP and HR well controlled - not on anti-lipids - follow up with PCP (10) Adrenal nodule: Plan: Incidental findings - Bilateral adrenal nodules measure up to 2.[address] criteria for fat- containing adenomas - No acute needs (11) Breast nodule: Plan: Incidental finding There are at least 2 ovoid nodules in the left breast which contain calcifications. These are not well assessed by CT, and if not recently performed consider nonemergent mammographic follow-up. Discussed with pt-last mammo was 5 years ago and she reports she usually has to have breast USs after mammo (12) Benzodiazepine dependence: Plan: takes Xanax 1mg tid for many years continue for now but suggest long slow wean and replace with SSRI for anxiety Plan: Dispo-continued stay, needs rehab placement Admission and Anticipated Discharge Date Admission Date: January 21, 2021 Subjective Pt continues to have the same numbness and tingling. She also is retaining urine now and required straight cath x 2. She apparently almost had a fall last evening. Discussed her care with Neuro today Review of Systems Review of Systems: All systems reviewed & are unremarkable except as noted in HPI & below Physical Exam Constitutional: WD/WN, vitals as above Eyes: + anicteric sclerae Neck: trachea midline, no thyromegaly Respiratory: normal respiratory effort, lungs clear to auscultation Cardiovascular: RRR, no murmur, no edema Chest (Breasts): Chest: normal inspection of chest Gastrointestinal (Abdomen): normal bowel sounds, soft, nontender, no hepatosplenomegaly Musculoskeletal: Extremities: extremities normal to inspection; no cyanosis and no clubbing Skin: no rashes, warm and dry Neurologic: moves all extremities and awake; no focal motor deficits Motor/Sensory: + sensory deficit (feels equally numb stocking glove fashion bilat LEs); no tremor Psychiatric: A+Ox3, euthymic affect Lymphatic: no lymphedema Results & Data Results & Data ([facility]) Vital Signs (Past 12 Hours) Vital Signs Temp Pulse Resp BP BP Pulse Ox 01/23/21 14:53 36.8 C 54 L 16 110/77 95 01/23/21 11:04 36.6 C 58 L 20 125/84 97 01/23/21 07:40 36.5 C 61 18 108/74 93 Laboratory Results 01/23/21 01/23/21 01/23/21 Range/Units 14:44 09:13 09:13 Iron 58 (35-150) mcg/dl TIBC 238 L (250-450) mcg/dl Transferrin 207 (200-360) mg/dl Transferrin % Sat 20 (15-50) % Ferritin 173.7 (8-388) ng/ml Whole Bld Vitamin B1 Pending Vitamin B6 Pending Alpha-Tocopherol Pending B- and G-Tocopherol Pending RBC Folate (>280) ng/mL RBC Urine Color Yellow Urine Appearance Clear (Clear) Urine pH 5.5 (4.5-7.5) Ur Specific [place] 1.013 (1.000-1.030) Urine Protein Negative (Negative) Urine Glucose (UA) Negative (Negative) Urine Ketones Negative (Negative) Urine Blood Negative (Negative) Urine Nitrite Negative (Negative) Urine Bilirubin Negative (Negative) Urine Urobilinogen Negative (Negative) Ur Leukocyte Esterase Negative (Negative) Serum Copper Pending Zinc Pending 01/21/21 Range/Units 13:49 Iron (35-150) mcg/dl TIBC (250-450) mcg/dl Transferrin (200-360) mg/dl Transferrin % Sat (15-50) % Ferritin (8-388) ng/ml Whole Bld Vitamin B1 Vitamin B6 Alpha-Tocopherol B- and G-Tocopherol RBC Folate 548 (>280) ng/mL RBC Urine Color Urine Appearance (Clear) Urine pH (4.5-7.5) Ur Specific [place] (1.000-1.030) Urine Protein (Negative) Urine Glucose (UA) (Negative) Urine Ketones (Negative) Urine Blood (Negative) Urine Nitrite (Negative) Urine Bilirubin (Negative) Urine Urobilinogen (Negative) Ur Leukocyte Esterase (Negative) Serum Copper Zinc Diagnostic Findings Thoracic Spine MRI 01/23/21 08:27 MRI OF THE THORACIC SPINE COMBO CLINICAL HISTORY: Bilateral dysesthesia. Hyperreflexia. Numbness in the feet. COMPARISON STUDY: Chest CT dated 01/21/2021. TECHNIQUE: MRI of the thoracic spine is performed utilizing various T1 and T2- weighted sequences in the axial and sagittal planes. Contrast-enhanced sequences were acquired following the IV administration of 6 cc of Gadavist. The examination is severely compromised by motion artifact. This degrades diagnostic utility FINDINGS: There are minimal chronic superior endplate compression deformities of T2, T3, and T4. Vertebral body height is otherwise maintained throughout the thoracic spine. Alignment is preserved. There is mild hyperkyphosis. The transverse and spinous processes are grossly intact. No destructive bony lesion is seen. Degenerative disc desiccation is seen throughout the thoracic spine. Tiny anterior osteophytes are seen throughout. There is no disc herniation or central canal stenosis. There is no evidence of epidural fluid collection. The thoracic spinal cord is normal in morphology and signal intensity. No abnormal postcontrast enhancement is seen. The conus medullaris terminates at the level of L1. There is no MRI evidence of significant neural foraminal stenosis. The paraspinous soft tissues are normal as visualized. The lung parenchyma is grossly unremarkable but not well evaluated by MRI. IMPRESSION: 1. Severely motion compromised examination. 2. No acute abnormality is seen. Dictated: 01/23/2021 1:38 PM Transcribed: 01/23/2021 2:00 PM Vanessa [id number] LINNEA_Peter Electronically signed by: Michael Desir M.D. 01/23/2021 2:23 PM PG Care Time/CCT Total # of Minutes Spent Total Time Spent with Patient: Total time spent is greater than 50% in coordination of care (as documented) at patient's floor/unit and/or counseling patient: Coding Level of Care Code 34577 Subseq Hosp Care Lvl 3 Diagnoses Abnormal gait R26.9 DJD (degenerative joint disease) M19.90 Asthma J45.909 Smoker F17.200 Aortic ectasia, thoracic I77.810 Adrenal nodule E27.8 Breast nodule N63.0 B12 deficiency E53.8 Sensory polyneuropathy G60.8 Hyper reflexia R29.2 Urinary retention with incomplete bladder emptying R33.9 Benzodiazepine dependence F13.20
[2021-01-23] MEDS: GABAPENTIN 100 MG CAP PO SCH ×2 (18:23→21:09)
[2021-01-23 23:31] LABS: 7-Aminoclonaz, Confirm NEGATIVE ng/mL (<25); Hydro-Alp Ur, GC/MS 134 ng/mL (<25); Hydroxyethylflurazepam, Conf NEGATIVE ng/mL (<50); Hydroxymidazolam Ur, GC/MS NEGATIVE ng/mL (<50); Hydroxytriazolam NEGATIVE ng/mL (<50); Lorazepam, Ur GC/MS NEGATIVE ng/mL (<50); Nordiazepam, Confirm NEGATIVE ng/mL (<50); Oxazepam Ur, GC/MS NEGATIVE ng/mL (<50); Temazepam, Confirm NEGATIVE ng/mL (<50)
[2021-01-24] MEDS: IBUPROFEN 600 MG TAB PO PRN ×3 (07:35→23:58)
[2021-01-24] MEDS: ALPRAZolam 0.5 MG TABLET PO PRN ×3 (07:35→23:58)
[2021-01-24] MEDS: NICOTINE POLACRILEX 2 MG GUM MT PRN (07:36)
--- NOTE | 2021-01-24 08:47 | Neurology Progress Note ---
Date of Service January 24, 2021 Assessment & Plan (1) Numbness and tingling: (2) Abnormal gait: (3) Hyper reflexia: (4) B12 deficiency: (5) Sensory polyneuropathy: Plan: This patient has a progressive neurologic condition over the last 3-4 weeks consisting of ascending dysesthesias and hyperesthesia that has gone from the soles of her feet, now up to mid to upper thoracic spine. On neurologic examination, she has hyperreflexia diffusely and upgoing toes on the right suggesting myelopathy. in addition, she has evidence of large caliber sensory fiber loss with her marked vibratory sense loss in the feet. This has led to a sensory ataxic gait. Although she has a sensation of weakness and her gait is unstable, she does not have any focal individual muscle weakness of significance. There is some pain in her feet and she is experiencing pain in her mid to upper thoracic spine. she has some early bowel incontinence. Guillain-Linwood syndrome is excluded with the hyperreflexia. No cord lesion was identified to explain this ascending dysesthesia with upper motor neuron signs. Although B12 deficiency typically causes hyporeflexia and large caliber sensory fiber peripheral neuropathy, it can cause a more typical myelopathy with hyperreflexia. The sensory fiber loss has resulted in a significant sensory ataxic gait. She is having some bowel and bladder issues likely from this as well Finally, the patient has a history of taking zinc supplementation. This can deplete copper and copper deficiency can cause a myelopathy such as this picture. Vitamin-E deficiency can cause this as well. I do not believe this is a brain or brainstem lesion given the bilateral symmetry of her signs and symptoms, and there is no evidence of meningoencephalitis. There are no signs of infection/inflammation or weight loss, to suggest cancer. A paraneoplastic syndrome giving myelopathy and peripheral is a remote possibility. The etiology of the B12 deficiency is likely nutritional. She has no history of frequent nitrous oxide use ( or "Whippets"). Her CBC does not changes consistent pernicious anemia. The history of alcohol use and abuse earlier this year puts her at risk for vitamin and nutritional deficiencies. Recommendations: 1. Physical and occupational therapy with gait training. She would benefit from a rehab hospital stay. She will be too much of a fall risk at home. 2. I see no need for an LP or MRI of the brain at this time 3. Serum copper, zinc, vitamin-E, vitamin B1, and vitamin B6 levels are pending. Hopefully serum copper ( the most important lab in that group) will be back by the weekend so we can make additional treatment recommendations 4. Continue B12 replacement as you are doing (1000 micrograms IM, daily for 3 days, then weekly for 4 weeks, or another, similar, protocol) 5. She has urinary retention likely from the peripheral neuropathy from the B12 deficiency. Urology has been consulted to manage this. 6. I would follow up as an outpatient. Overall, I spent a total of 60 minutes with this case including review of records, review of thoracici MRI films, direct evaluation the patient at bedside, and discussion of the case with the patient and RN at bedside as well as Dr. Hogan, including differential diagnosis and treatment options. Admission and Anticipated Discharge Date Admission Date: January 23, 2021 Subjective Patient is having urinary retention. A Hamilton catheter was placed and a large amount a urine was obtained. Unfortunately this catheter is "tenuous" with the balloon and insertion. Urinalysis was unremarkable recently. Iron studies were largely unremarkable although TIBC is mildly low. Serum B1, B6, copper, and zinc are pending. She still has the numbness and tingling in the hands and feet bilaterally. She feels weak and unbalanced when she walks. She has no confusion, cognitive issues, or speech problems. Blood pressure is 119/82 and she is afebrile. MRI of the thoracic spine showed no mass or lesion compressing the thoracic spine. There was no spinal stenosis. There were mild compression deformities at T2, T3, and T4. Results & Data ([facility]) Vital Signs (Past 12 Hours) Vital Signs Temp Pulse Resp BP Pulse Ox 01/24/21 08:05 36.7 C 67 18 110/78 94 01/23/21 23:21 36.9 C 75 18 119/82 94 Exam (Neuro) Physical Exam: She is awake and alert. Speech is without aphasia or dysarthria. Mood is normal and affect is appropriate. Thought processes are intact to conversation. Extraocular eye muscles are intact without nystagmus. There is no facial droop. Tongue is midline. Coordination is normal in the arms without tremor or ataxia. Strength is essentially 5/5 diffusely in the arms and legs both proximally and distally. Reflexes are 2 to 3/4 in all 4 limbs with upgoing toes to plantar stimulation on the right. PG Care Time/CCT Total # of Minutes Spent Total Time Spent with Patient: Total time spent is greater than 50% in coordination of care (as documented) at patient's floor/unit and/or counseling patient: Coding Level of Care Code 00726 Subseq Hosp Care Lvl 3 Diagnoses Numbness and tingling R20.0; R20.2 Abnormal gait R26.9 Hyper reflexia R29.2 B12 deficiency E53.8 Sensory polyneuropathy G60.8 Time Spent (min) 60 Comment add modifiers as needed
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
[2021-01-24] MEDS: CYANOCOBALAMIN 1000 MCG/ML VIAL IM SCH (10:03)
[2021-01-24] MEDS: GABAPENTIN 100 MG CAP PO SCH (10:03)
--- NOTE | 2021-01-24 12:24 | Consultation ---
Date of Consultation January 24, 2021 Assessment & Plan (1) Bilateral leg weakness: Imaging as well as clinical case has been reviewed with Dr. Shankar. After reviewing the cervical, thoracic, lumbar and pelvis MRIs there is no evidence of cord compression that would be able to explain her degree of bilateral lower extremity paresthesias, numbness, weakness and hyperreflexia. No evidence of cauda equina syndrome to account for her perineum numbness and urinary incontinence. Agree with continued work-up per Dr. Waggoner's recommendations. Recommend physical therapy coupled with occupational therapy. Will most likely need acute rehab upon discharge there are no acute surgical recommendations. Perineural cyst seen on pelvis MRI would not cause patient's current symptoms. Will sign off. Please do not hesitate to contact us with any further questions. Supervising Physician Co-Signing Physician Notes Dr. Salinas Shankar History of Present Illness Reason for Consultation: Bilateral lower extremity weakness and hyperreflexia Attending Physician: Sara Hogan MD History of Present Illness This is a pleasant 55-year-old female who has had a progressive decline over the past 4+ weeks. She has paresthesias that started to most distally in her feet and have extended up proximally bilaterally. It is constant. She notes perineum numbness and urinary incontinence. 3 days ago she was unable to ambulate to therefore ambulance brought her to the emergency room where she was subsequently admitted for further work-up. Cervical, thoracic, lumbar and pelvis MRIs have been ordered. Allergies Allergy/AdvReac Type Severity Reaction Status Date / Time clarithromycin Allergy Intermediate RASH Verified 01/21/21 08:18 Home Medications Medication Instructions Recorded Confirmed Type acetaminophen 500 mg tablet 1,000 mg PO TID PRN 12/29/20 01/21/21 History (Tylenol Extra Strength) albuterol sulfate 90 mcg/actuation 2 puff INHALATION QID PRN 12/29/20 01/21/21 History aerosol inhaler alprazolam 1 mg tablet 1 mg PO TID PRN 12/29/20 01/21/21 History carisoprodol 350 mg tablet 350 mg PO TID 12/29/20 01/21/21 History ibuprofen 200 mg tablet 600 - 800 mg PO Q6H PRN 12/29/20 01/21/21 History Patient History Medical History Adrenal nodule Aortic ectasia, thoracic Asthma Benzodiazepine dependence DJD (degenerative joint disease) Rib fracture Smoker Surgical History S/P wisdom tooth extraction Family History Mother , age 86 with Parkinson's disease Primary Parkinson's disease Father , age 87 with atrial fibrillation Stroke Social History Smoking Status: Current every day smoker Tobacco Type: Cigarettes Age Started Using Tobacco: 18; packs per day: 1; Second Hand Exposure: Yes; Do You Dip or Chew Tobacco: No; Tobacco Cessation Education Requested by Patient: No Hx Alcohol Use: Yes (occasionally) Alcohol type: beer and wine Alcohol Intake Frequency: Monthly or Less Alcohol Intake Frequency Comment: 4-5 drinks per day for 1 year, ending several months ago Hx Substance Use: Yes Last Used Substance Other:: 20 years ago Substance Use Type Other:: barbituates Preferred Language: Thai Communication Ability: Effective Car Supplier Required: No Beliefs That Will Affect Care: Gnosticism Gnosticism Beliefs: Congregational marital status: Single Current Living Situation: Family and Other Current Living Situation Comment: Left domestic partner in December, now staying with sister current occupational status: unemployed current occupation: former [employer] RN Other Information That Helps Us Care for You: No Feels Safe at Home: Yes Safety Concerns: Feels Safe At This Time Assistive Devices: Glasses Assistive Devices Comment: Cane at home Review of Systems Review of Systems: All systems reviewed & are unremarkable except as noted in HPI & below Physical Exam Physical Exam: Alert and oriented x3 No acute distress 5/5 bilateral EHL, dorsiflexion, plantarflexion, quadriceps, hamstrings bilaterally Brisk global reflexes specifically patellar and Achilles Negative Andreas sign bilaterally Upgoing toes right greater than left No evidence of ankle clonus bilaterally Constitutional: WD/WN, vitals as above Eyes: PERRL, conjunctivae normal, anicteric sclerae ENMT: external ear and nose normal, oropharynx normal Neck: normal visual inspection Respiratory: normal respiratory effort Cardiovascular: Extremities: normal capillary refill Musculoskeletal: Extremities: extremities normal to inspection and strength 5/5 throughout Skin: no rashes, warm and dry Neurologic: moves all extremities Psychiatric: A+Ox3, euthymic affect Results & Data ([facility]) Vital Signs (Past 12 Hours) Vital Signs Temp Pulse Resp BP Pulse Ox 01/24/21 08:05 36.7 C 67 18 110/78 94 Diagnostic Findings [facility], [id number] Magnetic Resonance Report Patient: AGAPITO STRAUSS EAdmit Date: 01/21/21MR#: [id number]: [address]ct ID:[id number]: Date: 1965City Zip: [place], [place] [address]Aqj: 55Location: 2WSex: FRoom/Bed: [id number] Phy: Sara Hogan, MDDiagnosis: WEAKNESS, PARASTHESIASPri Phy: Godwin Wilson M.D.Service Date: 01/21/21Fam Phy:Interpreting Phy: Sabas WarrenAdmit Phy: Supa Osorio MD Ordering Phy: Trevor Camilo cc: ~ MR pelvis wo con HISTORY: 55 years-old Female Sacrum eval- numbness, parasthesias, weakness acute sacral pain with weakness COMPARISON: MRI lumbar spine of same day, CTA abdomen and pelvis 01/21/2021 TECHNIQUE: Multi planar multisequence MRI of the pelvis was obtained without the use of IV contrast FINDINGS: Motion degraded exam. Marked urinary bladder distention on the canopy inspector localizer images. No free fluid within the pelvis. The imaged lower lumbar spine and lower lumbar central canal appear unremarkable. Mild degenerative changes of the SI joints with minimal subchondral edema of the left SI joint, image 9 series 6. Bone marrow signal is otherwise unremarkable. There is no acute fracture, subluxation or osseous erosion. There is an 11 mm T1 hyperintense focus involving the S2 vertebral body suggestive of focal fatty marrow. IMPRESSION: 1. Motion degraded exam. No acute fracture. 2. Mild degenerative changes of the left SI joint. ACT 112: Negative or not required by law. The above report was generated using voice recognition software. It may contain grammatical, syntax or spelling errors. Electronically signed by: Sabas Warren M.D. 01/22/2021 10:44 AM Dictated: 01/22/21 1037Transcribed: 01/22/[address] [place] [address], [id number] Magnetic Resonance Report Patient: AGAPITO STRAUSS Date: 01/21/21MR#: [id number]: [address]Acct ID:[id number]: Date: 1965City Zip: [place], [place] [address]Pkd: 55Location: 2WSex: FRoom/Bed: [id number] Phy: Sara Hogan, MDDiagnosis: WEAKNESS, PARASTHESIASPri Phy: Godwin Wilson M.D.Service Date: 01/21/21Fa Phy:Interpreting Phy: Sabas WarrenAdmit Phy: Supa Osorio MD Ordering Phy: Trevor Camilo cc: ~ MR pelvis wo con HISTORY: 55 years-old Female Sacrum eval- numbness, parasthesias, weakness acute sacral pain with weakness COMPARISON: MRI lumbar spine of same day, CTA abdomen and pelvis 01/21/2021 TECHNIQUE: Multi planar multisequence MRI of the pelvis was obtained without the use of IV contrast FINDINGS: Motion degraded exam. Marked urinary bladder distention on the canopy inspector localizer images. No free fluid within the pelvis. The imaged lower lumbar spine and lower lumbar central canal appear unremarkable. Mild degenerative changes of the SI joints with minimal subchondral edema of the left SI joint, image 9 series 6. Bone marrow signal is otherwise unremarkable. There is no acute fracture, subluxation or osseous erosion. There is an 11 mm T1 hyperintense focus involving the S2 vertebral body suggestive of focal fatty marrow. IMPRESSION: 1. Motion degraded exam. No acute fracture. 2. Mild degenerative changes of the left SI joint. ACT 112: Negative or not required by law. The above report was generated using voice recognition software. It may contain grammatical, syntax or spelling errors. Electronically signed by: Sabas Warren M.D. 01/22/2021 10:44 AM Dictated: 01/22/21 1037Transcribed: 01/22/[address] [place] [address], [id number] Magnetic Resonance Report Patient: AGAPITO STRAUSS EAdmit Date: 01/21/21#: [id number]: [address]Acct ID:[id number]: Date: [address] Zip: [place], [place] [address]Jap: 55Location: 2WSex: FRoom/Bed: [id number] Phy: Supa Osorio, MDDiagnosis: WEAKNESS, PARASTHESIASPri Phy: Godwin Wilson M.D.Service Date: 01/21/21Fam Phy:Interpreting Phy: Marsha Garner DOAdmit Phy: Supa Osorio MD Ordering Phy: Trevor Camilo cc: ~ MR lumbar spine wo con CLINICAL HISTORY: weakness, parasthesias, discordiantion TECHNIQUE: Sagittal and axial T1, T2 and STIR images were obtained. COMPARISON STUDY: No previous studies for comparison. OBSERVATIONS: The vertebral bodies and posterior elements appear intact. There is no abnormal bony signal present to suggest a marrow replacement process. Evaluation is limited due to motion artifact. Focal area of increase T1 and T2 signal within S2 vertebra is not seen on fat suppressed sequence likely representing focal area of fat accumulation or hemangioma. Multilevel Schmorl nodes and disc desiccation are seen. Also anterior osteophytes are seen at multiple levels. L1-2: No disc protrusions or extrusions. No evidence of spinal canal or neural foraminal compromise. L2-3: No disc protrusions or extrusions. No evidence of spinal canal or neural foraminal compromise. L3-4: No disc protrusions or extrusions. No evidence of spinal canal or neural foraminal compromise. L4-5: Minimal diffuse bulge of the disc causing flattening of thecal sac. Bilateral neuroforamina are patent. L5-S1: Minimal bulge of the disc causing flattening of thecal sac. Bilateral neuroforamina are patent. The conus medullaris is not visualized. Few small perineural cysts are seen within central canal at the level of S2. IMPRESSION: 1. Minimal degenerative changes of the spine without significant central canal or neural foraminal stenosis. 2. Small perineural cysts at the level of S2. Limited exam due to mild motion artifact. 3. The rest of findings as above. ACT 112: Negative or not required by law. The above report was generated using voice recognition software. It may contain grammatical, syntax or spelling errors. Electronically signed by: Marsha Garner DO 01/21/2021 1:15 PM Dictated: 01/21/21 130[address] [facility], [id number] Magnetic Resonance Report Patient: AGAPITO STRAUSS EAit Date: 01/21/21#: [id number]: [address]Acct ID:[id number]: Date: 1965[facility] Zip: [place], [place] [address]Lph: 55Location: 2WSex: FRoom/Bed: [id number] Phy: Sara Hogan MDDiagnosis: WEAKNESS, PARASTHESIASPri Phy: Godwin Wilson M.D.Service Date: 01/23/21[facility] Phy:Interpreting Phy: Michael Desir [facility] Phy: Supa Osorio MD Ordering Phy: Sara Hogan MD cc: ~ MRI OF THE THORACIC SPINE COMBO CLINICAL HISTORY: Bilateral dysesthesia. Hyperreflexia. Numbness in the feet. COMPARISON STUDY: Chest CT dated 01/21/2021. TECHNIQUE: MRI of the thoracic spine is performed utilizing various T1 and T2- weighted sequences in the axial and sagittal planes. Contrast-enhanced sequences were acquired following the IV administration of 6 cc of Gadavist. The examination is severely compromised by motion artifact. This degrades diagnostic utility FINDINGS: There are minimal chronic superior endplate compression deformities of T2, T3, and T4. Vertebral body height is otherwise maintained throughout the thoracic spine. Alignment is preserved. There is mild hyperkyphosis. The transverse and spinous processes are grossly intact. No destructive bony lesion is seen. Degenerative disc desiccation is seen throughout the thoracic spine. Tiny anterior osteophytes are seen throughout. There is no disc herniation or central canal stenosis. There is no evidence of epidural fluid collection. The thoracic spinal cord is normal in morphology and signal intensity. No abnormal postcontrast enhancement is seen. The conus medullaris terminates at the level of L1. There is no MRI evidence of significant neural foraminal stenosis. The paraspinous soft tissues are normal as visualized. The lung parenchyma is grossly unremarkable but not well evaluated by MRI. IMPRESSION: 1. Severely motion compromised examination. 2. No acute abnormality is seen. Dictated: 01/23/2021 1:38 PM Transcribed: 01/23/2021 2:00 PM Vanessa [id number] [facility] Electronically signed by: Michael Desir M.D. 01/23/2021 2:23 PM Dictated: 01/23/21 1338Transcribed: 01/23/21 [address] [facility], [phone] Magnetic Resonance Report Patient: AGAPITO STRAUSS EAit Date: 01/21/21MR#: [id number]: [address]Acct ID:[id number]: Date: 1965[facility] Zip: [place], [place] [address]Ukv: 55Location: 2WSex: FRoom/Bed: [id number] Phy: Sara Hogan MDDiagnosis: WEAKNESS, PARASTHESIASPri Phy: Godwin Wilson M.D.Service Date: 01/22/21Fa Phy:Interpreting Phy: Michael Desir [facility] Phy: Supa Osorio MD Ordering Phy: Sara Hogan MD cc: ~ MRI OF THE CERVICAL SPINE COMBO CLINICAL HISTORY: Bilateral dysesthesias. Hyperreflexia. Lower extremity tingling and numbness. COMPARISON STUDY: CT of the cervical spine dated 01/21/2021. TECHNIQUE: MRI of the cervical spine is performed utilizing various T1 and T2- weighted sequences in the axial and sagittal planes. Contrast-enhanced sequences are acquired following the IV administration of 6 cc of Gadavist. The examination is significantly compromised by motion artifact. FINDINGS: Cervical spine: Vertebral body height and alignment are maintained throughout the cervical spine. Normal marrow signal intensity is maintained throughout the visualized bony structures. The atlantodental articulation is maintained. The spinous processes appear intact. No destructive bony lesion is seen. Intervertebral discs: There is mild degenerative disc desiccation. The disc spaces are maintained. Spinal cord: The cervical spinal cord is normal in morphology and signal intensity. No abnormal postcontrast enhancement is identified. C2-C3: Unremarkable. C3-C4: Grossly unremarkable. This is not well assessed due to motion artifact. C4-C5: Grossly unremarkable. This is not well assessed due to motion artifact. C5-C6: Grossly unremarkable. This is not well assessed due to motion artifact. C6-C7: Grossly unremarkable. This is not well assessed due to motion artifact. C7-T1: Unremarkable. Soft tissues: The prevertebral and paraspinous soft tissues are normal as visualized. Brain parenchyma: Imaged brain parenchyma at the skull base is within normal limits. IMPRESSION: 1. Severely motion compromised examination. 2. There is no MRI evidence of fracture or ligamentous injury. 3. The cervical spinal cord is normal in morphology and signal intensity. No abnormal postcontrast enhancement is identified. 4. The central canal appears clear. Evaluation of spondylotic change is severely degraded. Dictated: 01/22/2021 1:48 PM Transcribed: 01/22/2021 2:25 PM Rachel [id number] LINNEA_Josué Electronically signed by: Michael Desir M.D. 01/22/2021 2:32 PM Dictated: 01/22/21 1348Transcribed: 01/22/21 1425
[2021-01-24] MEDS: ENOXAPARIN INJ 40 MG/0.4 ML SYR SQ SCH (13:49)
[2021-01-24] MEDS: GABAPENTIN 300 MG CAP PO SCH ×2 (14:58→20:34)
[2021-01-24] MEDS: ACETAMINOPHEN 325 MG TAB PO PRN (15:18)
--- NOTE | 2021-01-24 17:56 | Hospitalist Progress Note ---
Date of Service January 24, 2021 Assessment & Plan (1) Sensory polyneuropathy: Plan: Presented with ascending paraesthesia/dysesthesia bilaterally along with hyperreflexia developing over 3-4 weeks. No weakness, no fevers or evidence of infection TSH normal, folate normal, CK normal, ESR and CRP not elevated. UDS with benzos which she is on at home B12 level severely low at 114 She denies running out of xanax/withdrawal symptoms MRI C-spine, T-spine, L-spine, pelvis all without cord pathology Appreciate Neuro consult-->could be all from B12 deficiency, but will also check B1, B6, Fe studies, Copper, Vitamin E,and Zinc levels-all still pending - Ortho spine consulted - MRI- Small perineural cysts at the level of S2- discussed with Ortho SPine-these would not cause these symptoms Continue to replace Vit B12 Started gabapentin for significant pain and dysesthesias with neuropathy- increased today to 300 mg p.o. 3 times daily PT/OT recommending rehab-awaiting placement will likely take weeks to months to have improvement in neuropathy She is also having urinary retention due to inability to sense needed to void Will need follow-up with neurology as an outpatient within 1 month-Dr. Waggoner of [facility] neurology Of note, she has had 1 fall and one near fall while in the hospital when she tried to get up independently with no significant injuries. (2) B12 deficiency: Plan: B12 severely low at 114 replace with B12 1000mcg IM daily x 3 days and then po B12 1000 mcg daily should receive IM B12 once monthly after discharge (3) Abnormal gait: Plan: As above- PT/OT consult (4) Hyper reflexia: Plan: as above, could be secondary to B12 deficiency (5) Urinary retention with incomplete bladder emptying: Plan: required straight cath multiple times for large volumes PVR has been having urgency and hesitancy at home for 2 weeks prior to admission ?secondary to B12 def/neuropathy replace B12 U[address] Hamilton catheter and leave in place for 7 to 10 days for decompression of the bladder Appreciate urology consultation -Follow-up with urology for trial of void in 7 to 10 days as an outpatient (6) DJD (degenerative joint disease): Plan: DJD of lumbar spine and cervical spine - Tylenol and Motrin for pain - Hold SOMA - Consider adding Lidocaine patch if needed (7) Asthma: Plan: Smoker current - Continue Albuterol INH 2 puffs q4-6 prn (8) Smoker: Plan: As above - smoking cessation -added Nicotine gum (9) Aortic ectasia, thoracic: Plan: BP and HR well controlled - not on anti-lipids - follow up with PCP (10) Adrenal nodule: Plan: Incidental findings - Bilateral adrenal nodules measure up to 2.[address] criteria for fat- containing adenomas - No acute needs (11) Breast nodule: Plan: Incidental finding There are at least 2 ovoid nodules in the left breast which contain calcifications. These are not well assessed by CT, and if not recently performed consider nonemergent mammographic follow-up. Discussed with pt-last mammo was 5 years ago and she reports she usually has to have breast USs after mammo (12) Benzodiazepine dependence: Plan: takes Xanax 1mg tid for many years continue for now but suggest long slow wean and replace with SSRI for anxiety- she was recently prescribed Cymbalta but has not started it yet Suggest starting Cymbalta 20 mg daily once gabapentin has been titrated upwards as above Plan: Dispo-medically stable for discharge, awaiting rehab placement Admission and Anticipated Discharge Date Admission Date: January 23, 2021 Anticipated date of discharge: 01/25/21 Subjective Patient feels the pain in her arms and legs with minimal touch is slightly improved but still present. She is not excessively drowsy with the gabapentin. We discussed her extensive history of anxiety and benzodiazepine use. She is averse to taking SSRIs but was recently prescribed Cymbalta which she has not yet started. She continues to retain urine and was straight cathed 3 times and then had a Hamilton catheter placed today. She does not feel the sensation to void. She is not moving her bowels today. I discussed her case with neurology I discussed her case with the urology nurse practitioner as well. Review of Systems Review of Systems: All systems reviewed & are unremarkable except as noted in HPI & below Physical Exam Constitutional: WD/WN, vitals as above Eyes: + anicteric sclerae Neck: trachea midline, no thyromegaly Respiratory: normal respiratory effort, lungs clear to auscultation Cardiovascular: RRR, no murmur, no edema Chest (Breasts): Chest: normal inspection of chest Gastrointestinal (Abdomen): normal bowel sounds, soft, nontender, no hepatosplenomegaly Musculoskeletal: Extremities: extremities normal to inspection; no cyanosis and no clubbing Skin: no rashes, warm and dry Neurologic: moves all extremities and awake; + abnormal deep tendon reflexes (DTRs 3+ throughout upper and lower extremities, 3 beat clonus left ankle) and no focal motor deficits Motor/Sensory: + sensory deficit (feels equally numb stocking glove fashion bilat LEs); no tremor Psychiatric: Orientation: alert, oriented x 3 and cooperative Affect: + anxious affect Lymphatic: no lymphedema Results & Data Results & Data ([facility]) Vital Signs (Past 12 Hours) Vital Signs Temp Pulse Resp BP Pulse Ox 01/24/21 15:37 36.7 C 69 16 111/80 95 01/24/21 08:05 36.7 C 67 18 110/78 94 Laboratory Results 01/21/21 Range/Units 20:55 U OH-Alprazolam Confrm 134 H (<25) ng/mL 7-Amino Clonazepam NEGATIVE (<25) ng/mL Ur Nordiazepam Confirm NEGATIVE (<50) ng/mL U OH-ethylflurazepam NEGATIVE (<50) ng/mL U Lorazepam Cnf GC/MS NEGATIVE (<50) ng/mL U Oxazepam Confm GC/MS NEGATIVE (<50) ng/mL Ur Temazepam Confirm NEGATIVE (<50) ng/mL U OH-Triazolam Confirm NEGATIVE (<50) ng/mL U OH-Midazolam Confirm NEGATIVE (<50) ng/mL Drug Screen Comment SEE NOTE PG Care Time/CCT Total # of Minutes Spent Total Time Spent with Patient: Total time spent is greater than 50% in coordination of care (as documented) at patient's floor/unit and/or counseling patient: Coding Level of Care Code 87560 Subseq Hosp Care Lvl 3 Diagnoses Sensory polyneuropathy G60.8 B12 deficiency E53.8 Abnormal gait R26.9 Hyper reflexia R29.2 Urinary retention with incomplete bladder emptying R33.9 DJD (degenerative joint disease) M19.90 Asthma J45.909 Smoker F17.200 Aortic ectasia, thoracic I77.810 Adrenal nodule E27.8 Breast nodule N63.0 Benzodiazepine dependence F13.20
[2021-01-25] MEDS: IBUPROFEN 600 MG TAB PO PRN ×3 (08:12→15:22)
[2021-01-25] MEDS: ALPRAZolam 0.5 MG TABLET PO PRN ×3 (08:13→22:25)
[2021-01-25] MEDS: CYANOCOBALAMIN 1000 MCG/ML VIAL IM SCH (08:13)
[2021-01-25] MEDS: GABAPENTIN 300 MG CAP PO SCH ×3 (08:13→20:22)
[2021-01-25] MEDS: NICOTINE POLACRILEX 2 MG GUM MT PRN ×2 (08:42→20:22)
[2021-01-25] MEDS: DOCUSATE SODIUM 100 MG CAP PO SCH ×2 (11:13→20:21)
--- NOTE | 2021-01-25 11:38 | Neurology Progress Note ---
Date of Service January 25, 2021 Assessment & Plan (1) Numbness and tingling: (2) Abnormal gait: (3) Hyper reflexia: (4) B12 deficiency: (5) Sensory polyneuropathy: Plan: This patient has a progressive neurologic condition over the last 3-4 weeks consisting of ascending dysesthesias and hyperesthesia that has gone from the soles of her feet, now up to mid to upper thoracic spine. The patient feels that she is progressing but I am not convinced that she is any worse neurologically. She just has waxing and waning of her symptoms. On neurologic examination, she has hyperreflexia diffusely and upgoing toes on the right suggesting myelopathy. in addition, she has evidence of large caliber sensory fiber loss with her marked vibratory sense loss in the feet. This has led to a sensory ataxic gait. Although she has a sensation of weakness and her gait is unstable, she does not have any focal individual muscle weakness of significance. There is some pain in her feet and she is experiencing pain in her mid to upper thoracic spine. she has some early bowel incontinence. Guillain-[place] syndrome is excluded with the hyperreflexia. No cord lesion was identified to explain this ascending dysesthesia with upper motor neuron signs. Although B12 deficiency typically causes hyporeflexia and large caliber sensory fiber peripheral neuropathy, it can cause a more typical myelopathy with hyperreflexia. The sensory fiber loss has resulted in a significant sensory ataxic gait. She is having some bowel and bladder issues likely from this as well Finally, the patient has a history of taking zinc supplementation. This can deplete copper and copper deficiency can cause a myelopathy such as this picture. Vitamin-E deficiency can cause this as well. I do not believe this is a brain or brainstem lesion given the bilateral symmetry of her signs and symptoms, and there is no evidence of meningoencephalitis. There are no signs of infection/inflammation or weight loss, to suggest cancer. A paraneoplastic syndrome giving myelopathy and peripheral is a remote possibility. The etiology of the B12 deficiency is likely nutritional. She has no history of frequent nitrous oxide use ( or "Whippets"). Her CBC does not changes consistent pernicious anemia. The history of alcohol use and abuse earlier this year puts her at risk for vitamin and nutritional deficiencies. Recommendations: 1. Physical and occupational therapy with gait training. She would benefit from a rehab hospital stay. She will be too much of a fall risk at home. 2. I see no need for an LP or MRI of the brain at this time 3. Serum copper, zinc, vitamin-E, vitamin B1, and vitamin B6 levels are pending. Hopefully serum copper ( the most important lab in that group) will be back by the weekend so we can make additional treatment recommendations 4. Continue B12 replacement as you are doing (1000 micrograms IM, daily for 3 days, then weekly for 4 weeks, or another, similar, protocol) 5. She has urinary retention likely from the peripheral neuropathy from the B12 deficiency. She will keep the Hamilton catheter in For now. 6. I would follow up as an outpatient. Overall, I spent a total of 35 minutes with this case including review of records, review of thoracici MRI films, direct evaluation the patient at bedside, and discussion of the case with the patient and RN at bedside as well as Dr. Hogan, including differential diagnosis and treatment options. Admission and Anticipated Discharge Date Admission Date: January 23, 2021 Subjective Patient tells me that she is "getting worse". When I question her it seems like she feels more dysesthesias in her hands than she had before. The feet are about the same (as are the legs). she states that her hands had a redness to them earlier (not currently ) She has been trying to ambulate but it is very difficult and she needs the assistance of two. It is difficult for her to use the walker because of the arm symptoms. Neurology recommends keeping the Hamilton for short period of time for "bladder rest". Hamilton is staying In well currently. Orthopedic spine had no additional recommendations to make at this time. Results & Data ([facility]) Vital Signs (Past 12 Hours) Vital Signs Temp Pulse Resp BP BP Pulse Ox 01/25/21 10:25 65 100/68 01/25/21 08:17 36.6 C 20 L 20 90/64 L 93 Exam (Neuro) Physical Exam: She is awake and alert. Speech is without aphasia or dysarthria. Mood and affect are normal appropriate. Thought processes are intact conversation. She has no abnormal involuntary movements. She is sitting up in bed doing well with her stance/balance. Strength is symmetrical in the limbs. PG Care Time/CCT Total # of Minutes Spent Total Time Spent with Patient: Total time spent is greater than 50% in coordination of care (as documented) at patient's floor/unit and/or counseling patient: Coding Level of Care Code 18298 Subseq Hosp Care Lvl 3 Diagnoses Numbness and tingling R20.0; R20.2 Abnormal gait R26.9 Hyper reflexia R29.2 B12 deficiency E53.8 Sensory polyneuropathy G60.8
[2021-01-25] MEDS: ENOXAPARIN INJ 40 MG/0.4 ML SYR SQ SCH (14:09)
[2021-01-25] MEDS: ACETAMINOPHEN 325 MG TAB PO PRN (20:23)
--- NOTE | 2021-01-25 20:56 | Hospitalist Progress Note ---
Date of Service January 25, 2021 Assessment & Plan (1) Sensory polyneuropathy: Plan: Presented with ascending paraesthesia/dysesthesia bilaterally along with hyperreflexia developing over 3-4 weeks. No weakness, no fevers or evidence of infection TSH normal, folate normal, CK normal, ESR and CRP not elevated. UDS with benzos which she is on at home B12 level severely low at 114 She denies running out of xanax/withdrawal symptoms MRI C-spine, T-spine, L-spine, pelvis all without cord pathology Appreciate Neuro consult-->could be all from B12 deficiency, but will also check B1, B6, Copper, Vitamin E,and Zinc levels-all still pending. Iron studies normal - Ortho spine consulted - MRI- Small perineural cysts at the level of S2- discussed with Ortho SPine-these would not cause these symptoms Continue to replace Vit B12 Started gabapentin for significant pain and dysesthesias with neuropathy-she had some increased paresthesias with going up to 300 mg-decrease back to 200 mg p.o. 3 times daily PT/OT recommending rehab-awaiting placement will likely take weeks to months to have improvement in neuropathy She is also having urinary retention due to inability to sense needed to void Will need follow-up with neurology as an outpatient within 1 month-Dr. Waggoner of [facility] neurology Of note, she has had 1 fall and one near fall while in the hospital when she tried to get up independently with no significant injuries. -Patient also wants me to start her on vitamin C-unsure if this will help anything with her nerves. (2) B12 deficiency: Plan: B12 severely low at 114 replace with B12 1000mcg IM daily x 4 days and then po B12 1000 mcg daily should receive IM B12 once weekly x4 weeks for 1 month and then once monthly after that (3) Abnormal gait: Plan: As above- PT/OT consult (4) Hyper reflexia: Plan: as above, could be secondary to B12 deficiency (5) Urinary retention with incomplete bladder emptying: Plan: required straight cath multiple times for large volumes PVR has been having urgency and hesitancy at home for 2 weeks prior to admission ?secondary to B12 def/neuropathy replace B12 UA negative Placed Hamilton catheter and leave in place for 7 to 10 days for decompression of the bladder Appreciate urology consultation -Follow-up with urology for trial of void in 7 to 10 days as an outpatient- around 8/19-02/03 (6) DJD (degenerative joint disease): Plan: DJD of lumbar spine and cervical spine - Tylenol and Motrin for pain - Hold SOMA - Consider adding Lidocaine patch if needed (7) Asthma: Plan: Smoker current - Continue Albuterol INH 2 puffs q4-6 prn (8) Smoker: Plan: As above - smoking cessation -added Nicotine gum (9) Aortic ectasia, thoracic: Plan: BP and HR well controlled - not on anti-lipids - follow up with PCP (10) Adrenal nodule: Plan: Incidental findings - Bilateral adrenal nodules measure up to 2.[address] criteria for fat- containing adenomas - No acute needs (11) Breast nodule: Plan: Incidental finding There are at least 2 ovoid nodules in the left breast which contain calcifications. These are not well assessed by CT, and if not recently performed consider nonemergent mammographic follow-up. Discussed with pt-last mammo was 5 years ago and she reports she usually has to have breast USs after mammo (12) Benzodiazepine dependence: Plan: takes Xanax 1mg tid for many years continue for now but suggest long slow wean and replace with SSRI for anxiety- she was recently prescribed Cymbalta but has not started it yet Neurology recommends not starting any other new medications at this time other than the gabapentin and vitamin supplementation Plan: Dispo-medically stable for discharge, awaiting rehab placement. She was denied authorization at [facility], and now awaiting placement at [facility]. She is a target Admission and Anticipated Discharge Date Admission Date: January 23, 2021 Subjective Patient reports she had an episode last night where her hands and the performance became much more tingly and her palms became red. This worried her but I assured her I think it is probably a side effect from the gabapentin. Otherwise, she seems much calmer today and happier. She is also asking if she can start on a vitamin C supplement as she does not take in much vitamin C at all. She has not moved her bowels in many days but wants to see if docusate will help her by tomorrow before starting a new laxative. No trouble with the Hamilton catheter today. She is still having trouble grabbing things and moving her hands and legs. Review of Systems Review of Systems: All systems reviewed & are unremarkable except as noted in HPI & below Physical Exam Constitutional: WD/WN, vitals as above Eyes: + anicteric sclerae Neck: trachea midline, no thyromegaly Respiratory: normal respiratory effort, lungs clear to auscultation Cardiovascular: RRR, no murmur, no edema Chest (Breasts): Chest: normal inspection of chest Gastrointestinal (Abdomen): normal bowel sounds, soft, nontender, no hepatosplenomegaly Musculoskeletal: Extremities: extremities normal to inspection; no cyanosis and no clubbing Skin: no rashes, warm and dry Neurologic: moves all extremities and awake; no focal motor deficits Psychiatric: A+Ox3, euthymic affect Lymphatic: no lymphedema Results & Data Results & Data ([facility]) Vital Signs (Past 12 Hours) Vital Signs Temp Pulse Resp BP BP Pulse Ox 01/25/21 15:36 36.9 C 67 18 103/73 94 01/25/21 10:25 65 100/68 PG Care Time/CCT Total # of Minutes Spent Total Time Spent with Patient: Total time spent is greater than 50% in coordination of care (as documented) at patient's floor/unit and/or counseling patient: Coding Level of Care Code 07418 Subseq Hosp Care Lvl 2 Diagnoses Sensory polyneuropathy G60.8 B12 deficiency E53.8 Abnormal gait R26.9 Hyper reflexia R29.2 Urinary retention with incomplete bladder emptying R33.9 DJD (degenerative joint disease) M19.90 Asthma J45.909 Smoker F17.200 Aortic ectasia, thoracic I77.810 Adrenal nodule E27.8 Breast nodule N63.0 Benzodiazepine dependence F13.20
[2021-01-26] MEDS: IBUPROFEN 600 MG TAB PO PRN ×2 (06:30→19:41)
[2021-01-26] MEDS: ALPRAZolam 0.5 MG TABLET PO PRN ×3 (06:30→20:58)
[2021-01-26] MEDS: DOCUSATE SODIUM 100 MG CAP PO SCH ×2 (08:50→20:59)
[2021-01-26] MEDS: GABAPENTIN 100 MG CAP PO SCH ×3 (08:50→20:59)
[2021-01-26] MEDS: ASCORBIC ACID 500 MG TAB PO SCH (08:50)
[2021-01-26] MEDS: ACETAMINOPHEN 325 MG TAB PO PRN ×2 (08:51→23:25)
[2021-01-26] MEDS: CYANOCOBALAMIN 1000 MCG/ML VIAL IM SCH (08:51)
[2021-01-26] MEDS: ENOXAPARIN INJ 40 MG/0.4 ML SYR SQ SCH (12:56)
[2021-01-26] MEDS: NICOTINE POLACRILEX 2 MG GUM MT PRN (12:57)
--- NOTE | 2021-01-26 16:50 | Hospitalist Progress Note ---
Date of Service January 26, 2021 Assessment & Plan (1) Sensory polyneuropathy: Plan: Presented with ascending paraesthesia/dysesthesia bilaterally along with hyperreflexia developing over 3-4 weeks. No weakness, no fevers or evidence of infection TSH normal, folate normal, CK normal, ESR and CRP not elevated. UDS with benzos which she is on at home B12 level severely low at 114 She denies running out of xanax/withdrawal symptoms MRI C-spine, T-spine, L-spine, pelvis all without cord pathology Appreciate Neuro consult-->could be all from B12 deficiency, but will also check B1, B6, Copper, Vitamin E,and Zinc levels-all still pending. Iron studies normal - Ortho spine consulted - MRI- Small perineural cysts at the level of S2- discussed with Ortho SPine-these would not cause these symptoms Continue to replace Vit B12 -add on thiamine supplement 100mg po qday Started gabapentin for significant pain and dysesthesias with neuropathy-she had some increased paresthesias with going up to 300 mg-decrease back to 200 mg p.o. 3 times daily PT/OT recommending rehab-awaiting placement will likely take weeks to months to have improvement in neuropathy She is also having urinary retention due to inability to sense needed to void Will need follow-up with neurology as an outpatient within 1 month-Dr. Waggoner of [facility] neurology Of note, she has had 1 fall and one near fall while in the hospital when she tried to get up independently with no significant injuries. -Patient also wants me to start her on vitamin C-unsure if this will help anything with her nerves. (2) B12 deficiency: Plan: B12 severely low at 114 replace with B12 1000mcg IM daily x 4 days and then po B12 1000 mcg daily should receive IM B12 once weekly x4 weeks for 1 month and then once monthly after that (3) Abnormal gait: Plan: As above- PT/OT consult (4) Hyper reflexia: Plan: as above, could be secondary to B12 deficiency (5) Urinary retention with incomplete bladder emptying: Plan: required straight cath multiple times for large volumes PVR has been having urgency and hesitancy at home for 2 weeks prior to admission ?secondary to B12 def/neuropathy replace B12 UA negative Placed Hamilton catheter and leave in place for 7 to 10 days for decompression of the bladder Appreciate urology consultation -Follow-up with urology for trial of void in 7 to 10 days as an outpatient- around 01/31-02/03 (6) DJD (degenerative joint disease): Plan: DJD of lumbar spine and cervical spine - Tylenol and Motrin for pain - Hold SOMA (7) Asthma: Plan: Smoker current - Continue Albuterol INH 2 puffs q4-6 prn (8) Smoker: Plan: As above - smoking cessation -added Nicotine gum (9) Aortic ectasia, thoracic: Plan: BP and HR well controlled - not on anti-lipids - follow up with PCP (10) Adrenal nodule: Plan: Incidental findings - Bilateral adrenal nodules measure up to 2.[address] criteria for fat- containing adenomas - No acute needs (11) Breast nodule: Plan: Incidental finding There are at least 2 ovoid nodules in the left breast which contain calcifications. These are not well assessed by CT, and if not recently performed consider nonemergent mammographic follow-up. Discussed with pt-last mammo was 5 years ago and she reports she usually has to have breast USs after mammo (12) Benzodiazepine dependence: Plan: takes Xanax 1mg tid for many years continue for now but suggest long slow wean and replace with SSRI for anxiety- she was recently prescribed Cymbalta but has not started it yet Neurology recommends not starting any other new medications at this time other than the gabapentin and vitamin supplementation (13) Constipation: Plan: add Miralax, senna no BM in 5 days Plan: DVT Prophylaxis-Lovenox SQ Dispo-medically stable for discharge, awaiting rehab placement. She was denied authorization at [facility], and now awaiting placement at [facility]. She is a target/awaiting waiver Admission and Anticipated Discharge Date Admission Date: January 23, 2021 Subjective Still very unsteady on her feet and has jerking of legs and arms at times. No BM now in 5 days. Passing flatus. No SOB or CP. Review of Systems Review of Systems: All systems reviewed & are unremarkable except as noted in HPI & below Physical Exam Constitutional: WD/WN, vitals as above Eyes: + anicteric sclerae Neck: trachea midline, no thyromegaly Respiratory: normal respiratory effort, lungs clear to auscultation Cardiovascular: RRR, no murmur, no edema Chest (Breasts): Chest: normal inspection of chest Gastrointestinal (Abdomen): normal bowel sounds, soft, nontender, no hepatosplenomegaly Musculoskeletal: Extremities: extremities normal to inspection; no cyanosis and no clubbing Skin: no rashes, warm and dry Neurologic: moves all extremities and awake Motor/Sensory: + sensory deficit (throughout legs and arms to lt touch) significantly unsteady on feet with standing with max 2 person assist Psychiatric: Orientation: alert, oriented x 3 and cooperative Lymphatic: no lymphedema Results & Data Results & Data ([facility]) Vital Signs (Past 12 Hours) Vital Signs Temp Pulse Resp BP BP Pulse Ox 01/26/21 16:02 36.5 C 76 20 98/68 L 99 01/26/21 08:06 36.7 C 67 18 92/62 L 94 PG Care Time/CCT Total # of Minutes Spent Total Time Spent with Patient: Total time spent is greater than 50% in coordination of care (as documented) at patient's floor/unit and/or counseling patient: Coding Level of Care Code 82659 Subseq Hosp Care Lvl 2 Diagnoses Sensory polyneuropathy G60.8 B12 deficiency E53.8 Abnormal gait R26.9 Hyper reflexia R29.2 Urinary retention with incomplete bladder emptying R33.9 DJD (degenerative joint disease) M19.90 Asthma J45.909 Smoker F17.200 Aortic ectasia, thoracic I77.810 Adrenal nodule E27.8 Breast nodule N63.0 Benzodiazepine dependence F13.20 Constipation K59.00
[2021-01-26] MEDS: POLYETHYLENE (MIRALAX) 17 GM PACK PO SCH (18:42)
[2021-01-26] MEDS: THIAMINE HCL 100 MG TAB PO SCH (20:58)
[2021-01-26] MEDS: SENNA 8.6 MG TAB PO SCH (20:58)
[2021-01-27] MEDS: IBUPROFEN 600 MG TAB PO PRN ×2 (06:40→16:26)
[2021-01-27] MEDS: ALPRAZolam 0.5 MG TABLET PO PRN ×3 (06:40→21:05)
[2021-01-27] MEDS: THIAMINE HCL 100 MG TAB PO SCH (08:28)
[2021-01-27] MEDS: SENNA 8.6 MG TAB PO SCH (08:28)
[2021-01-27] MEDS: CYANOCOBALAMIN 500 MCG TABLET (VITAMIN B-12) PO SCH (08:28)
[2021-01-27] MEDS: NICOTINE POLACRILEX 2 MG GUM MT PRN (08:28)
[2021-01-27] MEDS: POLYETHYLENE (MIRALAX) 17 GM PACK PO SCH (08:28)
[2021-01-27] MEDS: ASCORBIC ACID 500 MG TAB PO SCH (08:29)
[2021-01-27] MEDS: GABAPENTIN 100 MG CAP PO SCH ×4 (08:29→21:05)
[2021-01-27] MEDS: DOCUSATE SODIUM 100 MG CAP PO SCH ×2 (08:29→21:04)
[2021-01-27] MEDS: ACETAMINOPHEN 325 MG TAB PO PRN ×2 (12:19→21:08)
[2021-01-27] MEDS: ENOXAPARIN INJ 40 MG/0.4 ML SYR SQ SCH (13:59)
--- NOTE | 2021-01-27 18:34 | Hospitalist Progress Note ---
Date of Service January 27, 2021 Assessment & Plan (1) Sensory polyneuropathy: Plan: Presented with ascending paraesthesia/dysesthesia bilaterally along with hyperreflexia developing over 3-4 weeks. No weakness, no fevers or evidence of infection TSH normal, folate normal, CK normal, ESR and CRP not elevated. UDS with benzos which she is on at home B12 level severely low at 114 She denies running out of xanax/withdrawal symptoms MRI C-spine, T-spine, L-spine, pelvis all without cord pathology Appreciate Neuro consult-->could be all from B12 deficiency, but will also check B1, B6, Copper, Vitamin E,and Zinc levels-all still pending. Iron studies normal Neurology does not think a brain MRI is necessary given the symptoms are bilateral and in all 4 extremities - Ortho spine consulted - MRI- Small perineural cysts at the level of S2- discussed with Ortho SPine-these would not cause these symptoms Continue to replace Vit B12 as below -Continue on thiamine supplement 100mg po qday -Started gabapentin for significant pain and dysesthesias with neuropathy-slowly titrate up the dose-increase today to 200 mg in the morning/200 mg in afternoon/and 300 mg at bedtime PT/OT recommending rehab-awaiting placement Will likely take weeks to months to have improvement in neuropathy She is also having urinary retention due to inability to sense needed to void Will need follow-up with neurology as an outpatient within 1 month-Dr. Waggoner of [facility] neurology Of note, she has had 1 fall and one near fall while in the hospital when she tried to get up independently with no significant injuries. -Patient also wants me to start her on vitamin C-unsure if this will help anything with her nerves. (2) B12 deficiency: Plan: B12 severely low at 114 replace with B12 1000mcg IM daily x 4 days and then po B12 1000 mcg daily should then receive IM B12 once weekly x4 weeks for 1 month and then once monthly after that (3) Abnormal gait: Plan: As above- PT/OT consult (4) Hyper reflexia: Plan: as above, could be secondary to B12 deficiency Neurology reports that typically B12 deficiency causes hyporeflexia but in rare cases can cause hyperreflexia (5) Urinary retention with incomplete bladder emptying: Plan: required straight cath multiple times for large volumes PVR Was having urgency and hesitancy at home for 2 weeks prior to admission ?secondary to B12 def/neuropathy replace B12 UA negative Placed Hamilton catheter and leave in place for 7 to 10 days for decompression of the bladder Appreciate urology consultation -Follow-up with urology for trial of void in 7 to 10 days as an outpatient- around 01/31-02/03 (6) DJD (degenerative joint disease): Plan: DJD of lumbar spine and cervical spine - Tylenol and Motrin for pain - Hold SOMA (7) Asthma: Plan: Smoker current - Continue Albuterol INH 2 puffs q4-6 prn (8) Smoker: Plan: As above - smoking cessation -Continue nicotine gum (9) Aortic ectasia, thoracic: Plan: BP and HR well controlled - not on anti-lipids - follow up with PCP (10) Adrenal nodule: Plan: Incidental findings - Bilateral adrenal nodules measure up to 2.[address] criteria for fat- containing adenomas - No acute needs (11) Breast nodule: Plan: Incidental finding There are at least 2 ovoid nodules in the left breast which contain calcifications. These are not well assessed by CT, and if not recently performed consider nonemergent mammographic follow-up. Discussed with pt-last mammo was 5 years ago and she reports she usually has to have breast USs after mammo (12) Benzodiazepine dependence: Plan: takes Xanax 1mg tid for many years continue for now but suggest long slow wean and replace with SSRI for anxiety- she was recently prescribed Cymbalta but has not started it yet Neurology recommends not starting any other new medications at this time other than the gabapentin and vitamin supplementation (13) Constipation: Plan: Ongoing, no bowel movement in 6 days Continue daily Miralax, senna Add magnesium citrate on Thursday if no bowel movement Plan: DVT Prophylaxis-Lovenox SQ Dispo-medically stable for discharge, awaiting rehab placement. She was denied authorization at [facility], and now awaiting placement at [facility]. She is a target/awaiting waiver Admission and Anticipated Discharge Date Admission Date: January 23, 2021 Subjective Still very wobbly on her legs and feels like she is getting weaker and is not doing any therapy here. She still has not yet moved her bowels in 6 days. Does not feel the tingling or paresthesias are any worse, however she does notice that the neuropathic pain in her legs gets worse as the gabapentin is wearing off especially in the morning. Review of Systems Review of Systems: All systems reviewed & are unremarkable except as noted in HPI & below Physical Exam Constitutional: WD/WN, vitals as above Eyes: + anicteric sclerae Neck: trachea midline, no thyromegaly Respiratory: normal respiratory effort, lungs clear to auscultation Cardiovascular: RRR, no murmur, no edema Chest (Breasts): Chest: normal inspection of chest Musculoskeletal: Extremities: extremities normal to inspection; no cyanosis and no clubbing Skin: no rashes, warm and dry Neurologic: moves all extremities and awake Motor/Sensory: + sensory deficit (throughout legs and arms to lt touch); no tremor Psychiatric: Orientation: alert, oriented x 3 and cooperative Affect: + anxious affect Lymphatic: no lymphedema Results & Data Results & Data ([facility]) Vital Signs (Past 12 Hours) Vital Signs Temp Pulse Resp BP Pulse Ox 01/27/21 15:13 36.8 C 69 20 95/62 L 97 01/27/21 07:40 36.4 C L 55 L 16 98/64 L 94 PG Care Time/CCT Total # of Minutes Spent Total Time Spent with Patient: Total time spent is greater than 50% in coordination of care (as documented) at patient's floor/unit and/or counseling patient: Coding Level of Care Code 11892 Subseq Hosp Care Lvl 2 Diagnoses Sensory polyneuropathy G60.8 B12 deficiency E53.8 Abnormal gait R26.9 Hyper reflexia R29.2 Urinary retention with incomplete bladder emptying R33.9 DJD (degenerative joint disease) M19.90 Asthma J45.909 Smoker F17.200 Aortic ectasia, thoracic I77.810 Adrenal nodule E27.8 Breast nodule N63.0 Benzodiazepine dependence F13.20 Constipation K59.00
[2021-01-28] MEDS: ALPRAZolam 0.5 MG TABLET PO PRN ×3 (05:57→19:20)
[2021-01-28] MEDS: IBUPROFEN 600 MG TAB PO PRN ×3 (05:58→19:20)
[2021-01-28] MEDS: ASCORBIC ACID 500 MG TAB PO SCH (08:50)
[2021-01-28] MEDS: SENNA 8.6 MG TAB PO SCH (08:50)
[2021-01-28] MEDS: CYANOCOBALAMIN 500 MCG TABLET (VITAMIN B-12) PO SCH (08:50)
[2021-01-28] MEDS: DOCUSATE SODIUM 100 MG CAP PO SCH ×2 (08:50→19:56)
[2021-01-28] MEDS: THIAMINE HCL 100 MG TAB PO SCH (08:50)
[2021-01-28] MEDS: GABAPENTIN 100 MG CAP PO SCH ×4 (08:51→19:58)
[2021-01-28] MEDS: POLYETHYLENE (MIRALAX) 17 GM PACK PO SCH (08:51)
[2021-01-28 12:59] LABS: Alpha-Tocopherol 9.2 mg/L (5.7-19.9); Vitamin B6 5.3 ng/mL (2.1-21.7); Vitamin E Beta-Gam Tocopherol 1.4 mg/L (<=4.3)
[2021-01-28] MEDS: ENOXAPARIN INJ 40 MG/0.4 ML SYR SQ SCH (15:26)
[2021-01-28] MEDS: NICOTINE POLACRILEX 2 MG GUM MT PRN (15:27)
--- NOTE | 2021-01-28 15:57 | Hospitalist Progress Note ---
Date of Service January 28, 2021 Assessment & Plan (1) Sensory polyneuropathy: Plan: Presented with ascending paraesthesia/dysesthesia bilaterally along with hyperreflexia developing over 3-4 weeks. No weakness, no fevers or evidence of infection TSH normal, folate normal, CK normal, ESR and CRP not elevated. UDS with benzos which she is on at home B12 level severely low at 114 She denies running out of xanax/withdrawal symptoms MRI C-spine, T-spine, L-spine, pelvis all without cord pathology Appreciate Neuro consult-->could be all from B12 deficiency, but will also check B1, B6, Copper, Vitamin E,and Zinc levels-all still pending. Iron studies normal Neurology does not think a brain MRI is necessary given the symptoms are bilateral and in all 4 extremities - Ortho spine consulted - MRI- Small perineural cysts at the level of S2- discussed with Ortho SPine-these would not cause these symptoms Continue to replace Vit B12 as below -Continue on thiamine supplement 100mg po qday -Started gabapentin for significant pain and dysesthesias with neuropathy-slowly titrate up the dose-increase today to 200 mg in the morning/200 mg in afternoon/and 300 mg at bedtime PT/OT recommending rehab-awaiting placement Will likely take weeks to months to have improvement in neuropathy She is also having urinary retention due to inability to sense needed to void Will need follow-up with neurology as an outpatient within 1 month-Dr. Waggoner of [facility] [place] neurology Of note, she has had 1 fall and one near fall while in the hospital when she tried to get up independently with no significant injuries. -Patient also wants me to start her on vitamin C-unsure if this will help anything with her nerves. - No change today. Continue plan. Patient does not feel ready to leave, but I assured her she has more room for improvement at rehab. Awaiting target. (2) B12 deficiency: Plan: B12 severely low at 114 replace with B12 1000mcg IM daily x 4 days and then po B12 1000 mcg daily should then receive IM B12 once weekly x4 weeks for 1 month and then once monthly after that (3) Abnormal gait: Plan: As above- PT/OT consult (4) Hyper reflexia: Plan: as above, could be secondary to B12 deficiency Neurology reports that typically B12 deficiency causes hyporeflexia but in rare cases can cause hyperreflexia (5) Urinary retention with incomplete bladder emptying: Plan: required straight cath multiple times for large volumes PVR Was having urgency and hesitancy at home for 2 weeks prior to admission ?secondary to B12 def/neuropathy replace B12 UA negative Placed Hamilton catheter and leave in place for 7 to 10 days for decompression of the bladder Appreciate urology consultation -Follow-up with urology for trial of void in 7 to 10 days as an outpatient- around 01/31-02/03 (6) DJD (degenerative joint disease): Plan: DJD of lumbar spine and cervical spine - Tylenol and Motrin for pain - Hold SOMA (7) Asthma: Plan: Smoker current - Continue Albuterol INH 2 puffs q4-6 prn (8) Smoker: Plan: As above - smoking cessation -Continue nicotine gum (9) Aortic ectasia, thoracic: Plan: BP and HR well controlled - not on anti-lipids - follow up with PCP (10) Adrenal nodule: Plan: Incidental findings - Bilateral adrenal nodules measure up to 2.[address] criteria for fat- containing adenomas - No acute needs (11) Breast nodule: Plan: Incidental finding There are at least 2 ovoid nodules in the left breast which contain calcifications. These are not well assessed by CT, and if not recently performed consider nonemergent mammographic follow-up. Discussed with pt-last mammo was 5 years ago and she reports she usually has to have breast USs after mammo (12) Benzodiazepine dependence: Plan: takes Xanax 1mg tid for many years continue for now but suggest long slow wean and replace with SSRI for anxiety- she was recently prescribed Cymbalta but has not started it yet Neurology recommends not starting any other new medications at this time other than the gabapentin and vitamin supplementation (13) Constipation: Plan: Ongoing, no bowel movement in 6 days Continue daily Miralax, senna Add magnesium citrate on Thursday if no bowel movement Plan: DVT Prophylaxis-Lovenox SQ Admission and Anticipated Discharge Date Admission Date: January 23, 2021 Subjective Not much change today. Reports no fevers/chills, chest pain, shortness of breath, abdominal pain, nausea, or vomiting. Physical Exam Constitutional: WD/WN, vitals as above Eyes: EOM intact bilaterally; no conjunctival abnormality ENMT: external ear and nose normal, oropharynx normal Neck: trachea midline, no thyromegaly normal visual inspection Respiratory: normal respiratory effort, lungs clear to auscultation no respiratory distress Cardiovascular: RRR, no murmur, no edema Gastrointestinal (Abdomen): Inspection/Auscultation: abdomen normal to inspection; abdomen not distended Musculoskeletal: no cyanosis or clubbing, extremities motor strength 5/5 Skin: no rashes, warm and dry Neurologic: moves all extremities and awake Psychiatric: Orientation: alert, oriented to person and cooperative Results & Data Results & Data ([facility]) Vital Signs (Past 12 Hours) Vital Signs Temp Pulse Resp BP Pulse Ox 01/28/21 15:09 36.5 C 57 L 20 103/70 97 01/28/21 07:04 36.5 C 52 L 18 90/55 L 96 PG Care Time/CCT Total # of Minutes Spent Total Time Spent with Patient: Total time spent is greater than 50% in coord ination of care (as documented) at patient's floor/unit and/or counseling patient: Coding Level of Care Code 94605 Subseq Hosp Care Lvl 2 Diagnoses Sensory polyneuropathy G60.8 B12 deficiency E53.8 Abnormal gait R26.9 Hyper reflexia R29.2 Urinary retention with incomplete bladder emptying R33.9 DJD (degenerative joint disease) M19.90 Asthma J45.909 Smoker F17.200 Aortic ectasia, thoracic I77.810 Adrenal nodule E27.8 Breast nodule N63.0 Benzodiazepine dependence F13.20 Constipation K59.00
[2021-01-29] MEDS: IBUPROFEN 600 MG TAB PO PRN ×3 (05:38→20:54)
[2021-01-29] MEDS: ALPRAZolam 0.5 MG TABLET PO PRN ×3 (05:38→20:48)
[2021-01-29 06:43] LABS: Hematocrit (blood only) 37.8 % (37-47); Hemoglobin 12.7 g/dL (12.0-16.0); Mean Corpuscular Hemoglobin 31.8 pg (25-34); Mean Corpuscular Hgb Conc 33.6 g/dL (32-36); Mean Corpuscular Volume 94.5 fL (80-100); Mean Platelet Volume 9.8 fL (7.4-10.4); Platelet Count 417 K/uL (130-400); RDW Coefficient of Variation 15.3 % (11.5-14.5); RDW Standard Deviation 52.9 fL (36.4-46.3)
[2021-01-29 07:14] LABS: BUN Creatinine Ratio 40.9 (10-20); Calcium 8.7 mg/dl (8.5-10.1); Creatinine Clr Calc Pharmacy 89.6 ml/min; Est GFR (African American) 114.9 ml/min; Est GFR (Non-African American) 99.2 ml/min; Magnesium 2.1 mg/dl (1.8-2.4)
[2021-01-29] MEDS: ASCORBIC ACID 500 MG TAB PO SCH (07:55)
[2021-01-29] MEDS: DOCUSATE SODIUM 100 MG CAP PO SCH ×2 (07:55→20:49)
[2021-01-29] MEDS: CYANOCOBALAMIN 500 MCG TABLET (VITAMIN B-12) PO SCH (07:55)
[2021-01-29] MEDS: GABAPENTIN 100 MG CAP PO SCH ×4 (07:55→20:49)
[2021-01-29] MEDS: POLYETHYLENE (MIRALAX) 17 GM PACK PO SCH ×2 (07:55→13:45)
[2021-01-29] MEDS: SENNA 8.6 MG TAB PO SCH (07:56)
[2021-01-29] MEDS: THIAMINE HCL 100 MG TAB PO SCH (07:56)
[2021-01-29] MEDS: ZINC SULFATE 220 MG CAPSULE PO SCH (09:09)
[2021-01-29] MEDS: ENOXAPARIN INJ 40 MG/0.4 ML SYR SQ SCH (13:45)
[2021-01-29] MEDS: NICOTINE POLACRILEX 2 MG GUM MT PRN (13:46)
--- NOTE | 2021-01-29 18:45 | Hospitalist Progress Note ---
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 Last use the day before admission Very low vitamin B12 level -continue to replete Continue gabapentin 100 mg p.o. HS and 200 mg p.o. TID MRI C-spine, T-spine, L-spine, pelvis all without cord pathology Neurology consulted. Appreciate Dr. Waggoner's input. * could be all from B12 deficiency, but will also check B1, B6, Copper, Vitamin E,and Zinc levels-all still pending. * Iron studies normal * Neurology does not think a brain MRI is necessary given the symptoms are bilateral and in all 4 extremities Continue to replace thiamine Continue PT OT. Awaiting placement at rehab Hamilton catheter placed for urinary retention due to inability to sense need to void Follow-up with Dr. Waggoner in 1 month (2) B12 deficiency: Plan: B12 severely low at 114 replace with B12 1000mcg IM daily x 4 days and then po B12 1000 mcg daily should then receive IM B12 once weekly x4 weeks for 1 month and then once monthly after that (3) Abnormal gait: Plan: Secondary to above Continue PT/OT treatment Currently awaiting placement for inpatient physical rehab Continue with fall precautions (4) Hyper reflexia: Plan: Could be secondary to above. Most likely B12 deficiency results and hyporeflexia but in rare cases can cause hyperreflexia Continue B12 replacement and follow Follow-up with neurology in 1 month (5) Urinary retention with incomplete bladder emptying: Plan: Secondary to inability to sense need to urinate Hamilton catheter placed Good urine output Continue to follow Follow-up with urology for trial of void in 7 to 10 days as an outpatient-around 01/31-02/03 (6) DJD (degenerative joint disease): Plan: Imaging confirms DJD of the lumbar spine and cervical spine We will hold Soma at this time Continue Tylenol and ibuprofen for pain (7) Asthma: Plan: No acute complaints Patient continues to smoke 1 pack/day of cigarettes Continue albuterol as needed No other bronchodilators including her home medications (8) Smoker: Plan: Encourage complete tobacco abstinence Patient refusing nicotine patch as she is using nicotine gum States that she is chewing to 3 pieces/day and that she has been cutting down on her smoking at home (9) Adrenal nodule: Plan: Incidental findings * Bilateral adrenal nodules measure up to 2.[address] criteria for fat- containing adenomas * No acute needs (10) Benzodiazepine dependence: Plan: Takes Xanax 1mg tid for many years Continue for now but suggest long slow wean and replace with SSRI for anxiety- she was recently prescribed Cymbalta but has not started it yet Neurology recommends not starting any other new medications at this time other than the gabapentin and vitamin supplementation (11) Constipation: Plan: Increased pain today Check a KUB Continue bowel regimen with Colace, senna, and MiraLAX We will add magnesium citrate today after KUB (12) DVT prophylaxis: Plan: Enoxaparin 40 mg subcu daily Admission and Anticipated Discharge Date Admission Date: January 23, 2021 Subjective Attending: Dr. Moses Patient seen and examined at bedside. She continues with sensory polyneuropathy. She feels as though she has [id number] in all extremities. She is having some weakness with walking. She has no fever or c hills. She does complain of abdominal pain and feels as though she is bloated. Of interest, I had discussion with the patient about illicit drug use. She is a smoker of approximate 1 pack/day. She denies any recent marijuana use but has used in the last several months. She denies any cocaine or heroin or other substance abuse. She does admit to frequent inhalation of nitrous oxide up until the day prior to admission. She reports that she typically would use between 20 and 50 bullets of nitrous oxide per week. She has used as many as 75 bullets per week. This has been occurring for the past several months. Review of Systems Review of Systems: All systems reviewed & are unremarkable except as noted in Subjective Physical Exam Physical Exam: GENERAL : No acute distress EYES: No icterus, gaze conjugate NOSE: No evidence of epistaxis MOUTH: No lesions or candidiasis NECK: Supple LUNGS: CTA B/L, no wheezes, rales or rhonchi HEART: Regular, rate controlled ABDOMEN: Soft, NT, ND, BS Present EXTREMITIES: No LE edema, pedal pulses intact NEURO: A&OX3. Patient strength is equal and appropriate to upper and lower extremities. She does have sensation with exam but states that she feels as though his [id number]. Results & Data Results & Data ([facility]) Vital Signs (Past 12 Hours) Vital Signs Temp Pulse Resp BP Pulse Ox 01/29/21 15:38 36.6 C 75 16 127/81 95 01/29/21 08:09 36.9 C 64 18 86/60 L 93 Laboratory Results 01/29/21 06:13 01/29/21 06:13 PG Care Time/CCT Total # of Minutes Spent Total Time Spent with Patient: Total time spent is greater than 50% in coordination of care (as documented) at patient's floor/unit and/or counseling patient: Coding Level of Care Code 41354 Subseq Hosp Care Lvl 2 Diagnoses Sensory polyneuropathy G60.8 B12 deficiency E53.8 Abnormal gait R26.9 Hyper reflexia R29.2 Urinary retention with incomplete bladder emptying R33.9 DJD (degenerative joint disease) M19.90 Asthma J45.909 Smoker F17.200 Adrenal nodule E27.8 Benzodiazepine dependence F13.20 Constipation K59.00 DVT prophylaxis Z29.9 Time Spent (min) 25
--- NOTE | 2021-01-30 07:35 | XRay Report ---
KUB CLINICAL HISTORY: Generalized abdominal pain. FINDINGS: An AP supine abdominal radiograph is correlated with abdominal CT dated 01/21/2021. There is a nonobstructed abdominal bowel gas pattern. Moderate fecal retention is seen throughout the colon. N o evidence of intraperitoneal free air is seen on this supine image. There are no abnormal abdominal calcifications. Phleboliths are observed in the pelvis. The bony structures appear intact. IMPRESSION: Moderate constipation. Electronically signed by: Michael Desir M.D. 01/30/2021 7:34 AM
[2021-01-30] MEDS: ASCORBIC ACID 500 MG TAB PO SCH (08:16)
[2021-01-30] MEDS: ALPRAZolam 0.5 MG TABLET PO PRN ×2 (08:16→15:34)
[2021-01-30] MEDS: THIAMINE HCL 100 MG TAB PO SCH (08:16)
[2021-01-30] MEDS: IBUPROFEN 600 MG TAB PO PRN ×2 (08:16→15:34)
[2021-01-30] MEDS: NICOTINE POLACRILEX 2 MG GUM MT PRN ×2 (08:16→14:01)
[2021-01-30] MEDS: CYANOCOBALAMIN 500 MCG TABLET (VITAMIN B-12) PO SCH (08:16)
[2021-01-30] MEDS: DOCUSATE SODIUM 100 MG CAP PO SCH (08:16)
[2021-01-30] MEDS: ZINC SULFATE 220 MG CAPSULE PO SCH (08:16)
[2021-01-30] MEDS: SENNA 8.6 MG TAB PO SCH (08:17)
[2021-01-30] MEDS: GABAPENTIN 100 MG CAP PO SCH ×2 (08:17→14:09)
[2021-01-30] MEDS: POLYETHYLENE (MIRALAX) 17 GM PACK PO SCH (08:18)
[2021-01-30] MEDS ORDERED: SOD PHOSPHATE/SOD BIPHOSPHATE ENEMA 132 ML BTL PR PRN (08:36)
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
[2021-01-30] MEDS: ENOXAPARIN INJ 40 MG/0.4 ML SYR SQ SCH (14:08)
== END 2021-01-30 17:45 | DRG 74 ==
LOC: 2W 07:40 → ED 07:40 → SUATTDRO 11:18 → 2W 13:00 → SUATTDRO 01-23 15:24
DX: R29.2 Abnormal reflex; J45.909 Unspecified asthma, uncomplicated; K59.00 Constipation, unspecified; R20.0 Anesthesia of skin; R33.9 Retention of urine, unspecified; I77.810 Thoracic aortic ectasia; N63.0 Unspecified lump in unspecified breast; R20.3 Hyperesthesia; R26.0 Ataxic gait; E27.9 Disorder of adrenal gland, unspecified; F13.20 Sedative, hypnotic or anxiolytic dependence, uncomplicated; F17.210 Nicotine dependence, cigarettes, uncomplicated; G60.8 Other hereditary and idiopathic neuropathies; E53.8 Deficiency of other specified B group vitamins; M47.892 Other spondylosis, cervical region; M47.896 Other spondylosis, lumbar region; R15.9 Full incontinence of feces

== ENCOUNTER 2021-07-04 10:50 | Observation (INO) ==
[2021-07-04 11:56] LABS: Basophils # (auto) 0.01 K/uL (0-0.2); Basophils % (auto) 0.1 %; Eosinophils # (auto) 0.06 K/uL (0-0.5); Eosinophils % (auto) 0.6 %; Hematocrit (blood only) 42.5 % (37-47); Hemoglobin 14.7 g/dL (12.0-16.0); Immature Granulocytes # (auto) 0.02 K/uL (0.00-0.02); Immature Granulocytes % (auto) 0.2 %; Lymphocytes # (auto) 1.41 K/uL (1.2-3.4); Mean Corpuscular Hemoglobin 30.4 pg (25-34); Mean Corpuscular Hgb Conc 34.6 g/dL (32-36); Mean Platelet Volume 10.3 fL (7.4-10.4); Monocytes # (auto) 0.67 K/uL (0.11-0.59); Monocytes % (auto) 6.7 %; Neutrophils # (auto) 7.88 K/uL (1.4-6.5); Neutrophils % (auto) 78.4 %; Platelet Count 349 K/uL (130-400); RDW Coefficient of Variation 14.9 % (11.5-14.5); Red Blood Count 4.83 M/uL (4.2-5.4); White Blood Count 10.05 K/uL (4.8-10.8)
[2021-07-04 12:41] LABS: Albumin Globulin Ratio 1.4 (0.9-2); Albumin Level 4.2 gm/dl (3.4-5.0); BUN Creatinine Ratio 11.9 (10-20); Bilirubin,Total 0.4 mg/dl (0.2-1.0); Calcium 9.6 mg/dl (8.5-10.1); Creatinine Clr Calc Pharmacy 103.4 ml/min; Est GFR (African American) 119.6 ml/min; Est GFR (Non-African American) 103.2 ml/min; Globulin 2.9 gm/dl (2.5-4.0); Total Protein 7.1 gm/dl (6.0-8.3)
[2021-07-04] MEDS ORDERED: SODIUM CHLORIDE 0.9% 1000ML 1,000 ML IV ONE (13:02)
[2021-07-04] MEDS ORDERED: dexAMETHasone**PF** 10 MG/ML VIAL IV ONE (13:02)
[2021-07-04] MEDS ORDERED: AMPICILLIN/SULBACTAM SOD 3,000 MG in 0.9 % SODIUM CHLORIDE 100 ML IV STA (13:02)
[2021-07-04] MEDS ORDERED: OPTIRAY 320 100ml IV ONE (13:33)
[2021-07-04 13:55] LABS: Potassium 4.2 mmol/L (3.5-5.1)
[2021-07-04] MEDS ORDERED: KETOROLAC 30 MG/ML VIAL IV STA (13:57)
--- NOTE | 2021-07-04 14:02 | CT Scan Report ---
CT SCAN OF THE NECK WITH IV CONTRAST CLINICAL HISTORY: Dental pain. Facial pain and swelling. COMPARISON STUDY: CT of the cervical spine dated 01/21/2021. TECHNIQUE: Following the IV administration of 96 cc of Optiray 320, CT scan of the soft tissues of e neck was performed from the skull base to the upper chest. Images are reviewed in the axial, sagitt al, and coronal planes. IV contrast was administered without complication. A dose lowering techniqu e was utilized adhering to the principles of ALARA. CT DOSE: 246.36 mGy.cm FINDINGS: Pharynx: There is significant inflammation involving the floor of the mouth, left side greater than r ight. Infiltration is seen throughout the sublingual soft tissues and extending into the submental re gion. There is also semitubular soft tissue infiltration. Fluid and mild inflammatory change is seen around both submandibular glands tracking inferiorly. There is mild infiltration of the left paraphar yngeal fat. Phlegmonous change is seen at the left floor of the mouth with no organized/renal fluid c ollection. The pharyngeal airway is patent. There is no evidence of mass lesion. The vocal cords are symmetric. The prevertebral/retropharyngeal soft tissues are within normal limits. The epiglottis is normal. Lymphadenopathy: Prominent submandibular lymph nodes are likely reactive. No pathological adenopathy is identified Thyroid: Normal in size and attenuation. Salivary glands: The parotid glands are within normal limits. As noted above, there is fluid and infi ltration identified around both submandibular glands. Brain parenchyma: The visualized brain parenchyma at the skull base is normal in appearance. Vascular structures: The carotid arteries and jugular veins are patent bilaterally. Skeletal structures: Imaged portions of the calvarium at the skull base are within normal limits. The cervical spine appears intact. Orbits: The bony orbits are intact. Orbital contents are normal in appearance. Sinuses and mastoids: The paranasal sinuses are clear. The mastoid air cells are well pneumatized. Dentition: There are scattered dental caries. Periapical lucencies are seen involving left maxillary molars on axial images #140 and #148. Lung apices: Emphysematous change is noted. Upper lobe lung parenchyma is otherwise clear as imaged. IMPRESSION: 1. Findings are consistent with a severe cellulitis involving the floor of the mouth as detailed abov e. This is likely odontogenic in origin, and developing Brice's angina would be impossible to exclud e. Clinical correlation will be required and close follow-up is recommended. 2. There is phlegmonous change involving the left floor of the mouth with no organized/drainable flui d collection identified. 3. There are scattered dental caries, as well as periapical lucencies involving left maxillary molars . 4. Mild infiltration around the submandibular glands is likely secondary to the infectious process di scussed above. 5. There is no airway compromise at this time. 6. Emphysema. ACT 112: Negative or not required by law. Electronically signed by: Michael Desir M.D. 07/04/2021 2:01 PM
--- NOTE | 2021-07-04 14:40 | Emergency Department Note ---
History of Present Illness General Chief complaint: Dental/Oral Stated complaint: TOOTH ABCESS AND INFECTION IN MOUTH& NECK Time Seen by Provider: 07/04/21 12:34 History of Present Illness Maximum Pain Intensity: 5 This 56-year-old female patient presents to the emergency department today for evaluation of left-sided facial pain and suspected dental abscess. Patient denies any fevers but did have some chills yesterday. She does have a history of poor dentition. She indicates that she was to see the maxillofacial surgeon several times but has had insurance issues and has not been able to follow-up with him. She notes some swelling into the floor of her mouth which began last night, worsened when she had some coffee this morning, but improved when she drank some water. She notes since she has been here in the emergency department the swelling seems to have worsened again. The patient denies any discharge from the mouth. She does feel some facial swelling on the left side and under the left jaw. She denies any visual disturbances. No headaches. Home Medications Medication Instructions Recorded Confirmed Type acetaminophen 500 mg tablet 1,000 mg PO TID PRN 12/29/20 07/04/21 History (Tylenol Extra Strength) albuterol sulfate 90 mcg/actuation 2 puff INHALATION QID PRN 12/29/20 07/04/21 History aerosol inhaler alprazolam 1 mg tablet 1 mg PO TID PRN 12/29/20 07/04/21 History carisoprodol 350 mg tablet 350 mg PO TID 12/29/20 07/04/21 History ibuprofen 200 mg tablet 600 - 800 mg PO Q6H PRN 12/29/20 07/04/21 History docusate sodium 100 mg capsule 100 mg PO BID #60 cap 01/30/21 07/04/21 Rx gabapentin 100 mg capsule 200 mg PO TID #180 cap 01/30/21 07/04/21 Rx nicotine (polacrilex) 2 mg gum 2 mg MT PRN PRN #100 ea 01/30/21 07/04/21 Rx (Nicorette) polyethylene glycol 3350 17 gram 17 g PO DAILY #30 ea 01/30/21 07/04/21 Rx oral powder packet (Miralax) sennosides 8.6 mg tablet (Senokot) 8.6 mg PO QAM #30 tab 01/30/21 07/04/21 Rx gabapentin 400 mg capsule 400 mg PO HS 02/21/21 07/04/21 History ascorbic acid (vitamin C) 500 mg 500 mg PO QAM #90 tab 06/26/21 07/04/21 Rx tablet (Vitamin C) cholecalciferol (vitamin D3) 25 25 mcg PO DAILY #90 cap 06/26/21 07/04/21 Rx mcg (1,000 unit) capsule cyanocobalamin (vitamin B-12) 1,000 mcg PO QAM #90 tab 06/26/21 07/04/21 Rx 1,000 mcg tablet meclizine 50 mg tablet (Antivert) 50 mg PO TID PRN #60 tab 06/26/21 07/04/21 Rx thiamine HCl (vitamin B1) 100 mg 100 mg PO QAM #90 tab 06/26/21 07/04/21 Rx tablet (Vitamin B-1) cyanocobalamin (vitamin B-12) 1,000 mcg IM .COMPLEX 90 Days #6 ml 07/01/21 07/04/21 Rx 1,000 mcg/mL injection solution clindamycin HCl 300 mg capsule 300 mg PO TID 07/04/21 07/04/21 History Allergies Allergy/AdvReac Type Severity Reaction Status Date / Time clarithromycin Allergy Intermediate RASH Verified 06/26/21 09:27 Past Med/Surg History Medical History Adrenal nodule Aortic ectasia, thoracic Asthma Benzodiazepine dependence DJD (degenerative joint disease) Rib fracture Smoker Vitamin B12 deficiency Surgical History S/P wisdom tooth extraction Family History Mother Primary Parkinson's disease Father Stroke Social History Smoking Status: Current every day smoker Tobacco Type: Cigarettes Age Started Using Tobacco: 18; packs per day: 1; Second Hand Exposure: Yes; Hx Alcohol Use: Yes (occasionally) Alcohol type: beer and wine Alcohol Intake Frequency: Monthly or Less Alcohol Intake Frequency Comment: 4-5 drinks per day for 1 year, ending several months ago Hx Substance Use: Yes Last Used Substance Other:: 20 years ago Substance Use Type Other:: barbituates Preferred Language: Upper Sorbian Communication Ability: Effective Senior Test Analyst Required: No Beliefs That Will Affect Care: Tenriism Tenriism Beliefs: Scientology marital status: Single Current Living Situation: Family and Other Current Living Situation Comment: Left domestic partner in December, now staying with sister current occupational status: unemployed current occupation: former [employer] RN Feels Safe at Home: Yes Assistive Devices: Walker Review of Systems A total of 10 systems reviewed and were otherwise negative Physical Exam Vital Signs Vital Signs - 24 hr 07/04/21 11:03 07/04/21 12:51 07/04/21 14:00 Temperature 36.4 C L Temperature Source Temporal Artery Scan Pulse Rate 106 H Pulse Rate [Left Radial] 66 69 Pulse Rhythm [Left Radial] Regular Pulse Strength [Left Radial] Normal Respiratory Rate 18 14 20 Respiratory Effort / Characteristics Non-Labored Spontaneous Non-Labored Non-Labored Respiratory Depth Normal Normal Normal Respiratory Pattern Regular Regular Regular Blood Pressure 149/105 H Blood Pressure Mean 119 Blood Pressure Position Sitting Pulse Oximetry 94 99 99 Oxygen Delivery Method Room Air Room Air Room Air Sepsis Recent Fever Within 48 Hours No Sepsis New/Unexplained Change in Mental Status No Sepsis Action Taken by Nursing No Action Required VITALS: Vitals are noted on the nurse's note and reviewed by myself. Vital signs stable. GENERAL: This is a 56-year-old white female, in no acute distress, nondiaphoretic, well-developed well-nourished. SKIN: The skin was without rashes, erythema, edema, or bruising. There is no tenting of the skin. Capillary refill less than 2 seconds. HEAD: Normocephalic atraumatic. EARS: External auditory canals clear, tympanic membranes pearly calles without erythema or effusion bilaterally. EYES: Conjunctivae without injection, sclerae without icterus. NOSE: Patent, turbinates without inflammation or discharge. No sinus tenderne ss. MOUTH: Erythema and edema of the left side of the mandible. There is some swelling into the left side of the floor of the mouth. There is significant tenderness to palpation. The patient has extremely poor dentition. No fluctuance noted. Mucous membranes moist. Tonsils are not enlarged. Pharynx without erythema or exudate. Uvula midline. Airway patent. Tongue does not deviate. NECK: Supple without nuchal rigidity. No lymphadenopathy. No thyromegaly. Cervical spine is nontender. No JVD. HEART: Regular rate and rhythm without murmurs gallops or rubs. LUNGS: Clear to auscultation bilaterally without wheezes, rales or rhonchi. No retractions or accessory muscle use. MUSCULOSKELETAL: No muscle atrophy, erythema, or edema noted. Full range of motion without joint tenderness in all extremities. No tenderness to palpation. Normal gait. Strength 5/5 throughout. NEURO: Patient was alert and oriented to person place and time. No focal neurological deficits. Course Course The patient was seen and evaluated as above. An order was placed for continuous cardiac monitoring. The monitor shows a norm al sinus rhythm at a rate of 82 bpm. IV access obtained, labs drawn. Patient hydrated with IV fluids and medicated with Decadron and Unasyn Patient is requesting more pain medicine. She was medicated with Toradol Imaging performed and reviewed by myself and radiologist as noted. Labs reviewed by myself. I discussed the findings with the patient at bedside. She notes some improvement in her pain, but she is now complaining of chest pain which feels "like my mouth does". I discussed the case with the maxillofacial surgeon on-call, Dr. Marshall. He did agree to consult on the patient but requests medicine admission I discussed the case with the ED employment case manager I discussed the case with Dr. Barry, [facility] hospitalist physician. Please see his dictation regarding ongoing management of this patient. Administered Medications Discontinued Medications Dexamethasone (Dexamethasone Sod Inj 4 Mg/Ml Vial) Confirm Administered Dose 8 mg .ROUTE .STK-MED ONE Stop: 07/04/21 17:43 Last Admin: 07/04/21 17:58 Dose: Not Given Documented by: [id number] Dexamethasone Sodium Phosphate (DexamethasonePf 10 Mg/Ml Vial) 10 mg IV NOW ONE Stop: 07/04/21 13:03 Last Admin: 07/04/21 13:49 Dose: 10 mg Documented by: [id number] Ampicillin Sodium/Sulbactam Sodium 3,000 mg/ Sodium Chloride 108 mls @ 200 mls/hr IV NOW STA; Protocol Stop: 07/04/21 13:34 Last Infusion: 07/04/21 14:28 Dose: 0 mls/hr Documented by: [id number] Admin: 07/04/21 13:49 Dose: 200 mls/hr Documented by: [id number] Sodium Chloride (Nss 1000ml) 1,000 mls @ 999 mls/hr IV .Q1H1M ONE Stop: 07/04/21 14:02 Last Infusion: 07/04/21 14:42 Dose: 0 mls/hr Documented by: [id number] Admin: 07/04/21 13:49 Dose: 999 mls/hr Documented by: [id number] Ioversol (Optiray 320 100ml) 96 ml IV ONCE ONE Stop: 07/04/21 13:34 Last Admin: 07/04/21 13:34 Dose: 96 ml Documented by: [id number] Ketorolac Tromethamine (Ketorolac 30 Mg/Ml Vial) 30 mg IV NOW STA Stop: 07/04/21 13:58 Last Admin: 07/04/21 14:07 Dose: 30 mg Documented by: [id number] Ketorolac Tromethamine (Ketorolac Tromethamine 15 Mg/Ml Vial) Confirm Ad ministered Dose 15 mg .ROUTE .STK-MED ONE Stop: 07/04/21 20:13 Last Admin: 07/04/21 20:13 Dose: 15 mg Documented by: [id number] Medical Decision Making Differential Diagnosis Dental caries, dental abscess, Ludwigs angina, Vincent angina, dental fracture, facial cellulitis, parotitis, osteomyelitis, sinus infection, peritonsillar abscess. Medical Records Attestation: I reviewed the patient's medical records. Home Medications Current Medication List: was personally reviewed by me Laboratory Data Attestation: I reviewed the patient's lab results. No leukocytosis, anemia, thrombocytopenia. Renal, hepatic function, and electrolytes without significant abnormality. Troponin negative. COVID-19 testing negative. Result diagrams: 07/04/21 11:25 07/04/21 13:03 Lab Results 07/04/21 07/04/21 07/04/21 Range/Units 11:25 11:25 13:03 WBC 10.05 (4.8-10.8) K/uL RBC 4.83 (4.2-5.4) M/uL Hgb 14.7 (12.0-16.0) g/dL Hct 42.5 (37-47) % MCV 88.0 (80-100) fL MCH 30.4 (25-34) pg MCHC 34.6 (32-36) g/dL RDW Std Deviation 48.0 H (36.4-46.3) fL RDW Coeff of Senthil 14.9 H (11.5-14.5) % Plt Count 349 (130-400) K/uL MPV 10.3 (7.4-10.4) fL Immature Gran % (Auto) 0.2 % Neut % (Auto) 78.4 % Lymph % (Auto) 14.0 % [place] % (Auto) 6.7 % Eos % (Auto) 0.6 % Baso % (Auto) 0.1 % Neut # (Auto) 7.88 H (1.4-6.5) K/uL Lymph # (Auto) 1.41 (1.2-3.4) K/uL [place] # (Auto) 0.67 H (0.11-0.59) K/uL Eos # (Auto) 0.06 (0-0.5) K/uL Baso # (Auto) 0.01 (0-0.2) K/uL Immature Gran # (Auto) 0.02 (0.00-0.02) K/uL Sodium 139 (136-145) mmol/L Potassium 4.2 (3.5-5.1) mmol/L Chloride 106 (98-107) mmol/L Carbon Dioxide 24 (21-32) mmol/L Anion Gap 9 (3-11) BUN 7 (6-23) mg/dl Creatinine 0.59 L (0.6-1.2) mg/dl Est Cr Clr Drug Dosing 103.4 ml/min Est GFR ( Amer) 119.6 ml/min Est GFR (Non-Af Amer) 103.2 ml/min BUN/Creatinine Ratio 11.9 (10-20) Glucose 102 H (70-99(Fasting)) mg/dl Calcium 9.6 (8.5-10.1) mg/dl Total Bilirubin 0.4 (0.2-1.0) mg/dl AST 18 (13-39) U/L ALT 15 (7-52) U/L Alkaline Phosphatase 65 (34-104) U/L Troponin I (0-0.04) ng/ml Total Protein 7.1 (6.0-8.3) gm/dl Albumin 4.2 (3.4-5.0) gm/dl Globulin 2.9 (2.5-4.0) gm/dl Albumin/Globulin Ratio 1.4 (0.9-2) SARS-CoV-2, RNA, NAAT (NEGATIVE) 07/04/21 07/04/21 Range/Units 13:03 14:33 WBC (4.8-10.8) K/uL RBC (4.2-5.4) M/uL Hgb (12.0-16.0) g/dL Hct (37-47) % MCV (80-100) fL MCH (25-34) pg MCHC (32-36) g/dL RDW Std Deviation (36.4-46.3) fL RDW Coeff of Senthil (11.5-14.5) % Plt Count (130-400) K/uL MPV (7.4-10.4) fL Immature Gran % (Auto) % Neut % (Auto) % Lymph % (Auto) % [place] % (Auto) % Eos % (Auto) % Baso % (Auto) % Neut # (Auto) (1.4-6.5) K/uL Lymph # (Auto) (1.2-3.4) K/uL [place] # (Auto) (0.11-0.59) K/uL Eos # (Auto) (0-0.5) K/uL Baso # (Auto) (0-0.2) K/uL Immature Gran # (Auto) (0.00-0.02) K/uL Sodium (136-145) mmol/L Potassium (3.5-5.1) mmol/L Chloride (98-107) mmol/L Carbon Dioxide (21-32) mmol/L Anion Gap (3-11) BUN (6-23) mg/dl Creatinine (0.6-1.2) mg/dl Est Cr Clr Drug Dosing ml/min Est GFR ( Amer) ml/min Est GFR (Non-Af Amer) ml/min BUN/Creatinine Ratio (10-20) Glucose (70-99(Fasting)) mg/dl Calcium (8.5-10.1) mg/dl Total Bilirubin (0.2-1.0) mg/dl AST (13-39) U/L ALT (7-52) U/L Alkaline Phosphatase (34-104) U/L Troponin I < 0.03 (0-0.04) ng/ml Total Protein (6.0-8.3) gm/dl Albumin (3.4-5.0) gm/dl Globulin (2.5-4.0) gm/dl Albumin/Globulin Ratio (0.9-2) SARS-CoV-2, RNA, NAAT NEGATIVE (NEGATIVE) Imaging Data Radiologist's Impression: Soft Tissue Neck CT 07/04/21 13:03 CT SCAN OF THE NECK WITH IV CONTRAST CLINICAL HISTORY: Dental pain. Facial pain and swelling. COMPARISON STUDY: CT of the cervical spine dated 01/21/2021. TECHNIQUE: Following the IV administration of 96 cc of Optiray 320, CT scan of the soft tissues of the neck was performed from the skull base to the upper chest. Images are reviewed in the axial, sagittal, and coronal planes. IV contrast was administered without complication. A dose lowering technique was utilized adhering to the principles of ALARA. CT DOSE: 246.36 mGy.cm FINDINGS: Pharynx: There is significant inflammation involving the floor of the mouth, left side greater than right. Infiltration is seen throughout the sublingual soft tissues and extending into the submental region. There is also semitubular soft tissue infiltration. Fluid and mild inflammatory change is seen around both submandibular glands tracking inferiorly. There is mild infiltration of the left parapharyngeal fat. Phlegmonous change is seen at the left floor of the mouth with no organized/renal fluid collection. The pharyngeal airway is patent. There is no evidence of mass lesion. The vocal cords are symmetric. The prevertebral/retropharyngeal soft tissues are within normal limits. The e piglottis is normal. Lymphadenopathy: Prominent submandibular lymph nodes are likely reactive. No pathological adenopathy is identified Thyroid: Normal in size and attenuation. Salivary glands: The parotid glands are within normal limits. As noted above, there is fluid and infiltration identified around both submandibular glands. Brain parenchyma: The visualized brain parenchyma at the skull base is normal in appearance. Vascular structures: The carotid arteries and jugular veins are patent bilaterally. Skeletal structures: Imaged portions of the calvarium at the skull base are within normal limits. The cervical spine appears intact. Orbits: The bony orbits are intact. Orbital contents are normal in appearance. Sinuses and mastoids: The paranasal sinuses are clear. The mastoid air cells are well pneumatized. Dentition: There are scattered dental caries. Periapical lucencies are seen involving left maxillary molars on axial images #140 and #148. Lung apices: Emphysematous change is noted. Upper lobe lung parenchyma is otherwise clear as imaged. IMPRESSION: 1. Findings are consistent with a severe cellulitis involving the floor of the mouth as detailed above. This is likely odontogenic in origin, and developing Brice's angina would be impossible to exclude. Clinical correlation will be required and close follow-up is recommended. 2. There is phlegmonous change involving the left floor of the mouth with no organized/drainable fluid collection identified. 3. There are scattered dental caries, as well as periapical lucencies involving left maxillary molars. 4. Mild infiltration around the submandibular glands is likely secondary to the infectious process discussed above. 5. There is no airway compromise at this time. 6. Emphysema. ACT 112: Negative or not required by law. Electronically signed by: Michael Desir M.D. 07/04/2021 2:01 PM Chest X-Ray 07/04/21 14:40 SINGLE VIEW CHEST CLINICAL HISTORY: Atypical chest pain FINDINGS: An AP, portable, upright chest radiograph is compared to chest x-ray and chest CT dated 01/21/2021. The cardiomediastinal silhouette is unremarkable. Emphysema and chronic interstitial thickening is similar to previous. There is mild chronic elevation of the left hemidiaphragm. Airspace opacities are seen at both lung bases. No large pleural effusion or pneumothorax is seen. The skeletal structures are osteopenic. The bony thorax is grossly intact. IMPRESSION: 1. Bibasilar airspace opacities could represent atelectasis versus an infectious/inflammatory pneumonitis. Clinical correlation will be required and radiographic follow-up to resolution is recommended. 2. Emphysema. ACT 112: Negative or not required by law. Electronically signed by: Michael Desir M.D. 07/04/2021 3:10 PM ECG Data Attestation: I personally reviewed and interpreted this ECG as follows: Indication: + chest pain Rate (beats per minute): 72 Rhythm: + normal sinus ECG Carbon: + Normal ECG ST segments: no ST depression, no ST elevation or no T-wave inversions Comparison ECG Date: from (01/23/2021) Change: no significant change Blood Pressure Blood Pressure Findings: Elevated blood pressure Blood Pressure Disposition: further management by hospitalist MDM Narrative This 56-year-old female patient presents to the emergency department today for evaluation of dental pain and facial pain. The patient does have swelling into the floor of the mouth. There is concern for possible developing Brice's a ngina on CT imaging. No fluctuance or evidence of drainable abscess/fluid collection at this time. Patient is not febrile. She does not have a leukocytosis. She was on clindamycin and her symptoms continue to progress. She was medicated here in the ED with IV antibiotics and steroids. Her swelling did somewhat improve. I do feel that inpatient management is warranted in this case. I did speak with the maxillofacial surgeon on-call and he will consult on the patient. The patient will be admitted to the [facility] hospitalist service. Please see hospitalist and maxillofacial surgery dictation regarding ongoing management of this patient The chart was completed utilizing [employer] Speech voice recognition software. Grammatical errors, random word insertions, pronoun errors, and incomplete sentences are an occasional consequence of this system due to software limitations, ambient noise, and hardware issues. Any formal questions or concerns about the content, text, or information contained within the body of this dictation should be directly addressed to the provider for clarification. Impression & Plan Facial cellulitis, Chest pain Discharge Plan Visit Data Chief Complaint: Dental/Oral Stated Complaint: TOOTH ABCESS AND INFECTION IN MOUTH& NECK ED Provider: Sayra Whelan ED Midlevel Provider: Alma Blake Discharge Problem: Facial cellulitis, Chest pain Patient Disposition: Admitted As Inpatient Discharge Instructions Interventions: ED Discharge Assessment Last Done: 07/04/21 18:25
--- NOTE | 2021-07-04 15:12 | XRay Report ---
SINGLE VIEW CHEST CLINICAL HISTORY: Atypical chest pain FINDINGS: An AP, portable, upright chest radiograph is compared to chest x-ray and chest CT dated 01/21. The cardiomediastinal silhouette is unremarkable. Emphysema and chronic interstitial thickenin g is similar to previous. There is mild chronic elevation of the left hemidiaphragm. Airspace opaciti es are seen at both lung bases. No large pleural effusion or pneumothorax is seen. The skeletal struc tures are osteopenic. The bony thorax is grossly intact. IMPRESSION: 1. Bibasilar airspace opacities could represent atelectasis versus an infectious/inflammatory pneumon itis. Clinical correlation will be required and radiographic follow-up to resolution is recommended. 2. Emphysema. ACT 112: Negative or not required by law. Electronically signed by: Michael Desir M.D. 07/04/2021 3:10 PM
--- NOTE | 2021-07-04 16:02 | History & Physical Report ---
Date of Service July 04, 2021 Assessment & Plan (1) Facial cellulitis: Plan: Floor of mouth cellulitis, possible Brice's angina although current infection clinically appears only left sided currently Unasyn 3g IV Q6H Dexamethasone 4mg Q8H LR @ 125ml/hr Consult ENT Revised cardiac risk 0, 3.9% 30 day risk of , [place] or cardiac arrest although suspect this is somewhat an underestimate given her nutritional status, benzodiazepine use and co-morbidities CXR shows mild bibasal likely atelectasis changes - I do not suspect pneumonia clinically and she is on Unasyn and room air regardless. SARS-COV-2 swab was negative. EKG - nill acute. She is medically optimized for surgery at this time. (2) Aortic ectasia, thoracic: Plan: mild, measure 3.6cm from CT in 01/2021 (3) B12 deficiency: Plan: Previously severe with neurological manifestations Continue B12 oral supplementation, Level 512 in June (4) Benzodiazepine dependence: Plan: Routinely taken Xanax TID, will continue during hospital admission to avoid withdrawal (5) Emphysema lung: Plan: No known COPD of lung function testing. Noted on prior imaging. (6) Anxiety: Plan: Continue Xanax as above (7) TMJ dysfunction: Plan: Continue Soma and gabapentin ?trigeminal neuralgia Plan: VTE Prophylaxis - low risk, SCDs Diet - Full liquids, NPO @ midnight for possible surgical intervention Disposition - admit to med/surg Admission and Anticipated Discharge Date Admission Date: July 04, 2020 History of Present Illness Chief Complaint: Floor of mouth pain Primary Care Provider: Godwin Vaughancindy Yu is a 56 year old female who presents to the ER with left sided floor of mouth, left molar and left neck pain. No objective fevers but having chills yesterday. Pain on her teeth have been present for the last week but swelling under her chin and neck started yesterday and progressively getting worse today. Mild trismus. She was started on clindamycin yesterday for possible tooth abscess. In the ER CT was concerning for floor of mouth cellulitis and concern for Brice's angina. ER provider discussed with ENT and recommended admission under medicine for intravenous antibiotics. Allergies Allergy/AdvReac Type Severity Reaction Status Date / Time clarithromycin Allergy Intermediate RASH Verified 06/26/21 09:27 Home Medications Medication Instructions Recorded Confirmed Type acetaminophen 500 mg tablet 1,000 mg PO TID PRN 12/29/20 07/04/21 History (Tylenol Extra Strength) albuterol sulfate 90 mcg/actuation 2 puff INHALATION QID PRN 12/29/20 07/04/21 History aerosol inhaler alprazolam 1 mg tablet 1 mg PO TID PRN 12/29/20 07/04/21 History carisoprodol 350 mg tablet 350 mg PO TID 12/29/20 07/04/21 History ibuprofen 200 mg tablet 600 - 800 mg PO Q6H PRN 12/29/20 07/04/21 History docusate sodium 100 mg capsule 100 mg PO BID #60 cap 01/30/21 07/04/21 Rx gabapentin 100 mg capsule 200 mg PO TID #180 cap 01/30/21 07/04/21 Rx nicotine (polacrilex) 2 mg gum 2 mg MT PRN PRN #100 ea 01/30/21 07/04/21 Rx (Nicorette) polyethylene glycol 3350 17 gram 17 g PO DAILY #30 ea 01/30/21 07/04/21 Rx oral powder packet (Miralax) sennosides 8.6 mg tablet (Senokot) 8.6 mg PO QAM #30 tab 01/30/21 07/04/21 Rx gabapentin 400 mg capsule 400 mg PO HS 02/21/21 07/04/21 History ascorbic acid (vitamin C) 500 mg 500 mg PO QAM #90 tab 06/26/21 07/04/21 Rx tablet (Vitamin C) cholecalciferol (vitamin D3) 25 25 mcg PO DAILY #90 cap 06/26/21 07/04/21 Rx mcg (1,000 unit) capsule cyanocobalamin (vitamin B-12) 1,000 mcg PO QAM #90 tab 06/26/21 07/04/21 Rx 1,000 mcg tablet meclizine 50 mg tablet (Antivert) 50 mg PO TID PRN #60 tab 06/26/21 07/04/21 Rx thiamine HCl (vitamin B1) 100 mg 100 mg PO QAM #90 tab 06/26/21 07/04/21 Rx tablet (Vitamin B-1) cyanocobalamin (vitamin B-12) 1,000 mcg IM .COMPLEX 90 Days #6 ml 07/01/21 07/04/21 Rx 1,000 mcg/mL injection solution clindamycin HCl 300 mg capsule 300 mg PO TID 07/04/21 07/04/21 History Past Med/Surg History Medical History Adrenal nodule Aortic ectasia, thoracic Asthma Benzodiazepine dependence DJD (degenerative joint disease) Rib fracture Smoker Vitamin B12 deficiency Surgical History S/P wisdom tooth extraction Family History Mother Primary Parkinson's disease Father Stroke Social History Smoking Status: Current every day smoker Tobacco Type: Cigarettes Age Started Using Tobacco: 18; packs per day: 1; Cigarettes Per Day: 20; Second Hand Exposure: Yes; Hx Alcohol Use: Yes Alcohol type: beer and wine Alcohol Intake Frequency: Monthly or Less Alcohol Intake Frequency Comment: 4-5 drinks per day for 1 year, ending several months ago Hx Substance Use: No Preferred Language: Mauritian Communication Ability: Effective Coach Builder Required: No Beliefs That Will Affect Care: None marital status: Single Current Living Situation: Significant Other Current Living Situation Comment: Left domestic partner in December, now staying with sister current occupational status: unemployed current occupation: former [employer] RN Feels Safe at Home: Yes Assistive Devices: Glasses and Walker Review of Systems Review of Systems: All systems reviewed & are unremarkable except as noted in HPI & below Physical Exam Constitutional: WD/WN, vitals as above no acute distress Eyes: + anicteric sclerae; normal pupil size ENMT: Mouth: + poor dentition Throat: uvula midline Neck: + submandibular swelling (left sided with associated pain) Respiratory: normal respiratory effort, lungs clear to auscultation Cardiovascular: RRR, no murmur, no edema Gastrointestinal (Abdomen): normal bowel sounds, soft, nontender, no hepatosplenomegaly Musculoskeletal: no cyanosis or clubbing, extremities motor strength 5/5 Skin: no rashes, warm and dry Neurologic: moves all extremities and awake; not confused Speech / Cognitio n: normal speech Psychiatric: A+Ox3, euthymic affect Results & Data Results & Data ([facility]) Vital Signs (Past 12 Hours) Vital Signs Temp Pulse Pulse Resp BP Pulse Ox 07/04/21 14:00 69 20 99 07/04/21 12:51 66 14 99 07/04/21 11:03 36.4 C L 106 H 18 149/105 H 94 Laboratory Results Abnormal lab results 07/04/21 07/04/21 Range/Units 11:25 11:25 RDW Std Deviation 48.0 H (36.4-46.3) fL RDW Coeff of Senthil 14.9 H (11.5-14.5) % Neut # (Auto) 7.88 H (1.4-6.5) K/uL Kinney # (Auto) 0.67 H (0.11-0.59) K/uL Creatinine 0.59 L (0.6-1.2) mg/dl Glucose 102 H (70-99(Fasting)) mg/dl Diagnostic Findings SINGLE VIEW CHEST CLINICAL HISTORY: Atypical chest pain FINDINGS: An AP, portable, upright chest radiograph is compared to chest x-ray and chest CT dated 01/21/2021. The cardiomediastinal silhouette is unremarkable. Emphysema and chronic interstitial thickening is similar to previous. There is mild chronic elevation of the left hemidiaphragm. Airspace opacities are seen at both lung bases. No large pleural effusion or pneumothorax is seen. The skeletal structures are osteopenic. The bony thorax is grossly intact. IMPRESSION: 1. Bibasilar airspace opacities could represent atelectasis versus an infectious/inflammatory pneumonitis. Clinical correlation will be required and radiographic follow-up to resolution is recommended. 2. Emphysema. CT SCAN OF THE NECK WITH IV CONTRAST CLINICAL HISTORY: Dental pain. Facial pain and swelling. COMPARISON STUDY: CT of the cervical spine dated 01/21/2021. TECHNIQUE: Following the IV administration of 96 cc of Optiray 320, CT scan of the soft tissues of the neck was performed from the skull base to the upper chest. Images are reviewed in the axial, sagittal, and coronal planes. IV contrast was administered without complication. A dose lowering technique was utilized adhering to the principles of ALARA. CT DOSE: 246.36 mGy.cm FINDINGS: Pharynx: There is significant inflammation involving the floor of the mouth, left side greater than right. Infiltration is seen throughout the sublingual soft tissues and extending into the submental region. There is also semitubular soft tissue infiltration. Fluid and mild inflammatory change is seen around both submandibular glands tracking inferiorly. There is mild infiltration of the left parapharyngeal fat. Phlegmonous change is seen at the left floor of the mouth with no organized/renal fluid collection. The pharyngeal airway is patent. There is no evidence of mass lesion. The vocal cords are symmetric. The prevertebral/retropharyngeal soft tissues are within normal limits. The epiglottis is normal. Lymphadenopathy: Prominent submandibular lymph nodes are likely reactive. No pathological adenopathy is identified Thyroid: Normal in size and attenuation. Salivary glands: The parotid glands are within normal limits. As noted above, there is fluid and infiltration identified around both submandibular glands. Brain parenchyma: The visualized brain parenchyma at the skull base is normal in appearance. Vascular structures: The carotid arteries and jugular veins are patent bilaterally. Skeletal structures: Imaged portions of the calvarium at the skull base are within normal limits. The cervical spine appears intact. Orbits: The bony orbits are intact. Orbital contents are normal in appearance. Sinuses and mastoids: The paranasal sinuses are clear. The mastoid air cells are well pneumatized. Dentition: There are scattered dental caries. Periapical lucencies are seen involving left maxillary molars on axial images #140 and #148. Lung apices: Emphysematous change is noted. Upper lobe lung parenchyma is otherwise clear as imaged. IMPRESSION: 1. Findings are consistent with a severe cellulitis involving the floor of the mouth as detailed above. This is likely odontogenic in origin, and developing Brice's angina would be impossible to exclude. Clinical correlation will be required and close follow-up is recommended. 2. There is phlegmonous change involving the left floor of the mouth with no organized/drainable fluid collection identified. 3. There are scattered dental caries, as well as periapical lucencies involving left maxillary molars. 4. Mild infiltration around the submandibular glands is likely secondary to the infectious process discussed above. 5. There is no airway compromise at this time. 6. Emphysema. Medications Administered ER Medications Given: Unasyn 3g IV Dexamethasone 10mg IV NSS 1L bolus Toradol 30mg IV ECG Indication: other (pre-op) Rate (beats per minute): 72 Rhythm: normal sinus Findings: no acute ischemic change Comparison ECG Date: from (January 23, 2021) Change: no significant change Code Status & VTE Plan Code Status Full VTE Prophylaxis Plan VTE Prophylaxis will be ordered: No PG Care Time/CCT Total # of Minutes Spent Total Time Spent with Patient: Total time spent is greater than 50% in coordination of care (as documented) at patient's floor/unit and/or counseling patient: Coding Level of Care Code 43311 Initial Inpt Care Lvl 2 Diagnoses Facial cellulitis L03.211 Aortic ectasia, thoracic I77.810 B12 deficiency E53.8 Benzodiazepine dependence F13.20 Emphysema lung J43.9 Anxiety F41.9 TMJ dysfunction M26.609
[2021-07-04] MEDS ORDERED: DEXAMETHASONE SOD INJ 4 MG/ML VIAL ONE (17:42)
--- NOTE | 2021-07-04 17:48 | Oral/Maxillofacial Consult ---
Date of Consultation July 04, 2021 History of Present Illness Reason for Consultation: Facial swelling --left floor of the mouth, submandibular, submental areas History of Present Illness Oral Maxillofacial Surgery Exam ER room C-4 at 5:30 pm Present Complaint: I have pain/swelling which is getting worse left side and under chin, pain from lower left molars. Symptoms have been ongoing for a while. Oral Exam: Finding--carious fractured lower left side teeth, tender gingival tissue with deep pocket formation.Teeth are fractured and carious and removal is clinical indicated. Swelling left floor of the mouth, chin, submandibular area Pain, tongue not elevated, able to swallow. Imaging: CT SCAN OF THE NECK WITH IV CONTRAST CLINICAL HISTORY: Dental pain. Facial pain and swelling. FINDINGS: Pharynx: There is significant inflammation involving the floor of the mouth, left side greater than right. Infiltration is seen throughout the sublingual soft tissues and extending into the submental region. There is also semitubular soft tissue infiltration. Fluid and mild inflammatory change is seen around both submandibular glands tracking inferiorly. There is mild infiltration of the left parapharyngeal fat. Phlegmonous change is seen at the left floor of the mouth with no organized/renal fluid collection. The pharyngeal airway is patent. There is no evidence of mass lesion. The vocal cords are symmetric. The prevertebral/retropharyngeal soft tissues are within normal limits. The epiglottis is normal. Lymphadenopathy: Prominent submandibular lymph nodes are likely reactive. No pathological adenopathy is identified Thyroid: Normal in size and attenuation. Salivary glands: The parotid glands are within normal limits. As noted above, there is fluid and infiltration identified around both submandibular glands. Brain parenchyma: The visualized brain parenchyma at the skull base is normal in appearance. Vascular structures: The carotid arteries and jugular veins are patent bilaterally. Skeletal structures: Imaged portions of the calvarium at the skull base are within normal limits. The cervical spine appears intact. Orbits: The bony orbits are intact. Orbital contents are normal in appearance. Sinuses and mastoids: The paranasal sinuses are clear. The mastoid air cells are well pneumatized. Dentition: There are scattered dental caries. Periapical lucencies are seen involving left maxillary molars on axial images #140 and #148. Lung apices: Emphysematous change is noted. Upper lobe lung parenchyma is otherwise clear as imaged. IMPRESSION: 1. Findings are consistent with a severe cellulitis involving the floor of the mouth as detailed above. This is likely odontogenic in origin, and developing Brice's angina would be impossible to exclude. Clinical correlation will be required and close follow-up is recommended. 2. There is phlegmonous change involving the left floor of the mouth with no organized/drainable fluid collection identified. 3. There are scattered dental caries, as well as periapical lucencies involving left maxillary molars. 4. Mild infiltration around the submandibular glands is likely secondary to the infectious process discussed above. 5. There is no airway compromise at this time. 6. Emphysema. Soft tissue: Left floor of the mouth submandibular gland swollen, tongue, hard/soft palate, posterior pharyngeal area all with in normal limits, no pathology or abnormal findings noted. Oral Care: Overall oral care is fair Occlusion: Class I TMJ exam: No pop, clicking,H/O TMJ pain left side , today good ROM, history of TMJ dysfunction Periodontal exam: Inflamed gingival tissue with evidence of periodontal pathology. Head/Neck exam: Neck is swollen left more so then the right, FROM, Able to extend and flex neck w/o difficulty, Tender and swollen submental and submandibular area left side, Floor of the mouth left side also. Etiology looks to be the lower left # 18 and # 19 no other abnormalities, no airway issues, no evidence of sleep apnea. Treatment Plan: Failed out patient antibiotics Oral Clinda did not help as a matter of fact -got worse! At present the infection has not localized and is somewhat diffuse. My plan is to continue with the IV antibiotics, pain control and hydration. I will re evaluate in AM and make a decision as to doing the I&D and extractions of 18 and 19. Set up with general anesthesia in hospital OR due to complexity of the procedure once the infection become fluctuant. I reviewed the treatment plan and consent with the patient Understanding was expressed. Time was given for questions regarding the surgery, risks and post op care. Discussed alternative to treatment--procedure as planned, Do not do surgery The following teeth are decayed and fractured and removal is indicated RICHARD: 18 and 19 with I&D as needed Risks discussed: Bleeding,Pain,swelling,infection, dry socket, delayed healing, nerve injury to face,lips,tongue,chin area which could be permanent (rare). TMJ, jaw stiffness, change in bite (rare), ear pain (referred). Sinus problems like fistula or infection. Need to leave a small root fragment in place to avoid injury to nerve or sinus. Relationship of teeth to nerve/sinus and risk of jaw fracture-very rare. Home care reviewed: tooth brushing, rinsing, follow up care with Dr Marshall. Will need a comprehensive dental treatment plan with a genal dentist upon discharge diet=[id number] dental. Discussed activity level, driving/work while on Rx pain Meds. Surgery to be set up once the infection has localized and she is medically cleared I will see Luis Eduardo in AM and decide if she will be ready for the I & D. OK for diet as tolerated now, NPO 12 midnight in case I decide to take her to the OR tomorrow. Allergies Allergy/AdvReac Type Severity Reaction Status Date / Time clarithromycin Allergy Intermediate RASH Verified 06/26/21 09:27 Home Medications Medication Instructions Recorded Confirmed Type acetaminophen 500 mg tablet 1,000 mg PO TID PRN 12/29/20 07/04/21 History (Tylenol Extra Strength) albuterol sulfate 90 mcg/actuation 2 puff INHALATION QID PRN 12/29/20 07/04/21 History aerosol inhaler alprazolam 1 mg tablet 1 mg PO TID PRN 12/29/20 07/04/21 History carisoprodol 350 mg tablet 350 mg PO TID 12/29/20 07/04/21 History ibuprofen 200 mg tablet 600 - 800 mg PO Q6H PRN 12/29/20 07/04/21 History docusate sodium 100 mg capsule 100 mg PO BID #60 cap 01/30/21 07/04/21 Rx gabapentin 100 mg capsule 200 mg PO TID #180 cap 01/30/21 07/04/21 Rx nicotine (polacrilex) 2 mg gum 2 mg MT PRN PRN #100 ea 01/30/21 07/04/21 Rx (Nicorette) polyethylene glycol 3350 17 gram 17 g PO DAILY #30 ea 01/30/21 07/04/21 Rx oral powder packet (Miralax) sennosides 8.6 mg tablet (Senokot) 8.6 mg PO QAM #30 tab 01/30/21 07/04/21 Rx gabapentin 400 mg capsule 400 mg PO HS 02/21/21 07/04/21 History ascorbic acid (vitamin C) 500 mg 500 mg PO QAM #90 tab 06/26/21 07/04/21 Rx tablet (Vitamin C) cholecalciferol (vitamin D3) 25 25 mcg PO DAILY #90 cap 06/26/21 07/04/21 Rx mcg (1,000 unit) capsule cyanocobalamin (vitamin B-12) 1,000 mcg PO QAM #90 tab 06/26/21 07/04/21 Rx 1,000 mcg tablet meclizine 50 mg tablet (Antivert) 50 mg PO TID PRN #60 tab 06/26/21 07/04/21 Rx thiamine HCl (vitamin B1) 100 mg 100 mg PO QAM #90 tab 06/26/21 07/04/21 Rx tablet (Vitamin B-1) cyanocobalamin (vitamin B-12) 1,000 mcg IM .COMPLEX 90 Days #6 ml 07/01/21 07/04/21 Rx 1,000 mcg/mL injection solution clindamycin HCl 300 mg capsule 300 mg PO TID 07/04/21 07/04/21 History Patient History Medical History Adrenal nodule Aortic ectasia, thoracic Asthma Benzodiazepine dependence DJD (degenerative joint disease) Rib fracture Smoker Vitamin B12 deficiency Surgical History S/P wisdom tooth extraction Family History Mother Primary Parkinson's disease Father Stroke Social History Smoking Status: Current every day smoker Tobacco Type: Cigarettes Age Started Using Tobacco: 18; packs per day: 1; Second Hand Exposure: Yes; Hx Alcohol Use: Yes (occasionally) Alcohol type: beer and wine Alcohol Intake Frequency: Monthly or Less Alcohol Intake Frequency Comment: 4-5 drinks per day for 1 year, ending several months ago Hx Substance Use: Yes Last Used Substance Other:: 20 years ago Substance Use Type Other:: barbituates Preferred Language: Emirati Communication Ability: Effective Greaser Operator Required: No Beliefs That Will Affect Care: Hindu Hindu Beliefs: Confucianist marital status: Single Current Living Situation: Family and Other Current Living Situation Comment: Left domestic partner in December, now staying with sister current occupational status: unemployed 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
[2021-07-04] MEDS ORDERED: ONDANSETRON INJ 2 MG/ML 2 ML VIAL IV PRN (18:58)
[2021-07-04] MEDS ORDERED: KETOROLAC TROMETHAMINE 15 MG/ML VIAL ONE (20:12)
[2021-07-04] MEDS: ALPRAZolam 0.5 MG TABLET PO SCH (22:14)
[2021-07-04] MEDS: AMPICILLIN/SULBACTAM SOD 3,000 MG in 0.9 % SODIUM CHLORIDE 100 ML IV SCH (22:14)
[2021-07-04] MEDS: DOCUSATE SODIUM 100 MG CAP PO SCH (22:15)
[2021-07-04] MEDS: GABAPENTIN 100 MG CAP PO SCH (22:15)
[2021-07-04] MEDS: GABAPENTIN 400 MG CAP PO SCH (22:16)
[2021-07-04] MEDS: LACTATED RINGER'S 1,000 ML IV SCH (23:07)
[2021-07-05] MEDS: CARISOPRODOL 350 MG TABLET PO SCH ×4 (00:03→21:48)
[2021-07-05] MEDS: dexAMETHasone 4 MG in SYRINGE 0 ML IV SCH ×3 (00:03→13:29)
[2021-07-05] MEDS: AMPICILLIN/SULBACTAM SOD 3,000 MG in 0.9 % SODIUM CHLORIDE 100 ML IV SCH ×4 (03:47→21:45)
[2021-07-05] MEDS: LACTATED RINGER'S 1,000 ML IV SCH ×3 (03:49→22:57)
--- NOTE | 2021-07-05 06:28 | Electrocardiogram Report ---
Test Reason : Blood Pressure : / mmHG Vent. Rate : 072 BPM Atrial Rate : 072 BPM P-R Int : 140 ms QRS Dur : 080 ms QT Int : 402 ms P-R-T Axes : 021 050 035 degrees QTc Int : 440 ms Normal sinus rhythm Normal ECG When compared with ECG of 23-JAN-2021 05:22, No significant change was found Confirmed by Iban Dobbins ([id number]) on 07/05/2021 6:28:17 AM Referred By: REFERRED SELF Confirmed By:Iban Dobbins
[2021-07-05] MEDS: ASCORBIC ACID 500 MG TAB PO SCH (08:21)
[2021-07-05] MEDS: THIAMINE HCL 100 MG TAB PO SCH (08:21)
[2021-07-05] MEDS: CYANOCOBALAMIN 500 MCG TABLET (VITAMIN B-12) PO SCH (08:21)
[2021-07-05] MEDS: ALPRAZolam 0.5 MG TABLET PO SCH ×3 (08:21→21:49)
[2021-07-05] MEDS: SENNA 8.6 MG TAB PO SCH (08:21)
[2021-07-05] MEDS: DOCUSATE SODIUM 100 MG CAP PO SCH ×2 (08:21→21:49)
[2021-07-05] MEDS: GABAPENTIN 100 MG CAP PO SCH ×3 (08:21→21:48)
[2021-07-05] MEDS: CHOLECALCIFEROL 1,000 UNITS 25 MCG TAB PO SCH (08:21)
[2021-07-05] MEDS: POLYETHYLENE (MIRALAX) 17 GM PACK PO SCH (08:22)
--- NOTE | 2021-07-05 10:41 | Oral/Maxillofacial Progress Nt ---
Date of Service July 05, 2021 Assessment & Plan (1) Facial cellulitis: (2) Tooth decayed: (3) TMJ dysfunction: Admission and Anticipated Discharge Date Admission Date: July 04, 2021 Subjective The infection has localized and she has less swelling and pain. Tooth # 18 and 19 are grossly fractured and decayed and need removal with the I&D. I reviewed the risks and complications with the GA and I&D/extraction. She is cleared for OR by medicine Plan NPO To OR for extractions this afternoon. Consent signed Results & Data ([facility]) Vital Signs (Past 12 Hours) Vital Signs Temp Pulse Resp BP Pulse Ox 07/05/21 07:03 36.9 C 77 18 126/81 93 07/04/21 23:00 36.8 C 86 20 119/78 93 PG Care Time/CCT Total # of Minutes Spent Total Time Spent with Patient: Total time spent is greater than 50% in coordination of care (as documented) at patient's floor/unit and/or counseling patient: Coding Level of Care Code None Diagnoses Facial cellulitis L03.211 Tooth decayed K02.9 TMJ dysfunction M26.609
[2021-07-05] MEDS ORDERED: LIDOCAINE/EPINEPHRINE 1.7 ML CTR ONE (15:56)
[2021-07-05] MEDS ORDERED: BUPIVACAINE/EPINEPHRINE 0.5% 1:200,000 1.8 ML CARP ONE (15:56)
[2021-07-05] MEDS ORDERED: CHLORHEXIDINE GLUCONATE 0.12% 480 ML ONE (15:57)
--- NOTE | 2021-07-05 16:02 | History & Physical Bridge Note ---
Date of Service July 05, 2021 History & Physical Bridge Note I have examined the patient, reviewed the History & Physical and in the interval since the performance of the History & Physical I have noted the following changes of clinical significance: no changes noted. NPO, COVID (-), plan I&D left submand. abscess, ext of
--- NOTE | 2021-07-05 16:14 | Anesthesiology Consultation ---
Date of Service July 05, 2021 Assessment & Plan (1) Encounter for pre-operative examination: Chart Review Chart Review: Acceptable Risk for Surgery (necessary surgery) and Patient NOT seen in Pre Admission Testing Consults Requested none History Surgery Operation Date: 07/05/21 16:45 Proposed Procedures p Facial Incision and Drainage - Esdras Marshall DMD s Teeth Extracation #18 and 19 - Esdras Marshall DMD Height/Weight Height: 5 ft 8 in Weight: 60.5 kg Allergies Allergy/AdvReac Type Severity Reaction Status Date / Time clarithromycin Allergy Intermediate RASH Verified 06/26/21 09:27 Medications Home Medications Medication Instructions Recorded Confirmed Last Taken acetaminophen 500 mg tablet 1,000 mg PO TID PRN 12/29/20 07/04/21 01/20/21 (Tylenol Extra Strength) albuterol sulfate 90 mcg/actuation 2 puff INHALATION QID PRN 12/29/20 07/04/21 01/21/21 aerosol inhaler alprazolam 1 mg tablet 1 mg PO TID PRN 12/29/20 07/04/21 01/21/21 carisoprodol 350 mg tablet 350 mg PO TID 12/29/20 07/04/21 01/21/21 ibuprofen 200 mg tablet 600 - 800 mg PO Q6H PRN 12/29/20 07/04/21 01/20/21 19:00 docusate sodium 100 mg capsule 100 mg PO BID #60 cap 01/30/21 07/04/21 Unknown gabapentin 100 mg capsule 200 mg PO TID #180 cap 01/30/21 07/04/21 Unknown nicotine (polacrilex) 2 mg gum 2 mg MT PRN PRN #100 ea 01/30/21 07/04/21 Unknown (Nicorette) polyethylene glycol 3350 17 gram 17 g PO DAILY #30 ea 01/30/21 07/04/21 Unknown oral powder packet (Miralax) sennosides 8.6 mg tablet (Senokot) 8.6 mg PO QAM #30 tab 01/30/21 07/04/21 Unknown gabapentin 400 mg capsule 400 mg PO HS 02/21/21 07/04/21 Unknown ascorbic acid (vitamin C) 500 mg 500 mg PO QAM #90 tab 06/26/21 07/04/21 Unknown tablet (Vitamin C) cholecalciferol (vitamin D3) 25 25 mcg PO DAILY #90 cap 06/26/21 07/04/21 Unknown mcg (1,000 unit) capsule cyanocobalamin (vitamin B-12) 1,000 mcg PO QAM #90 tab 06/26/21 07/04/21 Unknown 1,000 mcg tablet meclizine 50 mg tablet (Antivert) 50 mg PO TID PRN #60 tab 06/26/21 07/04/21 Unknown thiamine HCl (vitamin B1) 100 mg 100 mg PO QAM #90 tab 06/26/21 07/04/21 Unknown tablet (Vitamin B-1) cyanocobalamin (vitamin B-12) 1,000 mcg IM .COMPLEX 90 Days #6 ml 07/01/2106/28/21 1,000 mcg/mL injection solution clindamycin HCl 300 mg capsule 300 mg PO TID 07/04/21 07/04/21 07/04/21 06:30 Active Medications Generic Name Dose Route Start Last Admin Trade Name Freq PRN Reason Stop Dose Admin Alprazolam 1 mg 07/04/21 21:00 07/05/21 13:29 Alprazolam 0.5 Mg Tablet PO 08/03/21 20:59 1 mg TID KATHLEEN Administration Ascorbic Acid 500 mg 07/05/21 09:00 07/05/21 08:21 Ascorbic Acid 500 Mg Tab PO 08/04/21 08:59 500 mg QAM KATHLEEN Administration Carisoprodol 350 mg 07/04/21 21:00 07/05/21 13:29 Carisoprodol 350 Mg Tablet PO 08/03/21 20:59 350 mg TID KATHLEEN Administration Cyanocobalamin 1,000 mcg 07/05/21 09:00 07/05/21 08:21 Cyanocobalamin 500 Mcg Tablet (Vitamin B-12) PO 08/04/21 08:59 1,000 mcg QAM KATHLEEN Administration Docusate Sodium 100 mg 07/04/21 21:00 07/05/21 08:21 Docusate Sodium 100 Mg Cap PO 08/03/21 20:59 100 mg BID KATHLEEN Administration Gabapentin 400 mg 07/04/21 21:00 07/04/21 22:16 Gabapentin 400 Mg Cap PO 08/03/21 20:59 400 mg HS KATHLEEN Administration Gabapentin 200 mg 07/04/21 21:00 07/05/21 13:29 Gabapentin 100 Mg Cap PO 08/03/21 20:59 200 mg TID KATHLEEN Administration Ampicillin Sodium/Sulbactam 108 mls @ 200 mls/hr 07/04/21 20:00 07/05/21 15:24 Sodium 3,000 mg/ Sodium IV 07/14/21 19:59 Infused Chloride Q6H KATHLEEN Infusion Protocol Dexamethasone 4 mg/ Syringe 1 mls @ 1 mls/min 07/04/21 21:00 07/05/21 13:29 IV 08/03/21 20:59 1 mls/min TID KATHLEEN Administration Lactated Ringer's 1,000 mls @ 125 mls/hr 07/04/21 18:58 07/05/21 08:06 Lr IV 08/03/21 18:57 125 mls/hr .Q8H KATHLEEN Administration Polyethylene Glycol 17 gm 07/05/21 09:00 07/05/21 08:22 Polyethylene (Miralax) 17 Gm Pack PO 08/04/21 08:59 Not Given DAILY KATHLEEN Sennosides 8.6 mg 07/05/21 09:00 07/05/21 08:21 Senna 8.6 Mg Tab PO 08/04/21 08:59 8.6 mg QAM KATHLEEN Administration Thiamine HCl 100 mg 07/05/21 09:00 07/05/21 08:21 Thiamine Hcl 100 Mg Tab PO 08/04/21 08:59 100 mg QAM KATHLEEN Administration Vitamin D 1,000 units 07/05/21 09:00 07/05/21 08:21 Cholecalciferol 1,000 Units 25 Mcg Tab PO 08/04/21 08:59 1,000 units DAILY KATHLEEN Administration Past Medical History Medical History Adrenal nodule Aortic ectasia, thoracic Asthma Benzodiazepine dependence DJD (degenerative joint disease) Rib fracture Smoker Vitamin B12 deficiency Past Family History Family History Mother , age 86 with Parkinson's disease Primary Parkinson's disease Father , age 87 with atrial fibrillation Stroke Past Surgical History Surgical History S/P wisdom tooth extraction Social History Smoking Status: Current every day smoker tobacco type: cigarettes Smoking cigarettes per day: 20 Hx Alcohol Use: Yes Alcohol type: beer and wine alcohol intake frequency: holidays/special occasions only Hx Substance Use: No substance use type: former substance user and other Substance Use Type Other:: barbituates Last Used Substance Other:: 20 years ago Physical Exam Vital Signs Last Vital Signs Temp 36.7 C 07/05/21 14:29 Pulse 78 07/05/21 14:29 Resp 16 07/05/21 14:29 BP 120/73 07/05/21 14:29 Pulse Ox 93 07/05/21 14:29 Testing Laboratory Results 07/04/21 11:25 07/04/21 13:03 Electrocardiogram Date: 07/04/21 DICTATED BY:Iban Dobbins MD Test Reason : Blood Pressure : / mmHG Vent. Rate : 072 BPM Atrial Rate : 072 BPM P-R Int : 140 ms QRS Dur : 080 ms QT Int : 402 ms P-R-T Axes : 021 050 035 degrees QTc Int : 440 ms Normal sinus rhythm Normal ECG When compared with ECG of 23-JAN-2021 05:22, No significant change was found Confirmed by Iban Dobbins ([id number]) on 07/05/2021 6:28:17 AM Referred By: REFERRED SELF Confirmed By:Iban Dobbins Signed By: Chest X-Ray Date: 07/04/21 SINGLE VIEW CHEST CLINICAL HISTORY: Atypical chest pain FINDINGS: An AP, portable, upright chest radiograph is compared to chest x-ray and chest CT dated 01/21/2021. The cardiomediastinal silhouette is unremarkable. Emphysema and chronic interstitial thickening is similar to previous. There is mild chronic elevation of the left hemidiaphragm. Airspace opacities are seen at both lung bases. No large pleural effusion or pneumothorax is seen. The skeletal structures are osteopenic. The bony thorax is grossly intact. IMPRESSION: 1. Bibasilar airspace opacities could represent atelectasis versus an infectious/inflammatory pneumonitis. Clinical correlation will be required and r adiographic follow-up to resolution is recommended. 2. Emphysema. ACT 112: Negative or not required by law. Electronically signed by: Michael Desir M.D. 07/04/2021 3:10 PM Dictated:07/04/21 1509 Transcribed: 07/04/21 1509
[2021-07-05] MEDS ORDERED: ATROPINE SULFATE 0.1 MG/ML 10ML SYR IV PRN (16:16)
[2021-07-05] MEDS ORDERED: MEPERIDINE HCL 25 MG/ML CARP/VIAL IV PRN (16:16)
[2021-07-05] MEDS ORDERED: PHENYLEPHRINE 100MCG/ML 5ML SYR IV PRN (16:16)
[2021-07-05] MEDS ORDERED: ONDANSETRON INJ 2 MG/ML 2 ML VIAL IV PRN (16:16)
[2021-07-05] MEDS ORDERED: ePHEDrine sulfate 50 MG/ML AMP IV PRN (16:16)
[2021-07-05] MEDS ORDERED: HYDROmorphone INJ 1 MG/ML SYRINGE IV PRN (16:16)
[2021-07-05] MEDS ORDERED: fentaNYL citrate 100 MCG/2 ML VIAL IV PRN (16:16)
[2021-07-05] MEDS ORDERED: LABETALOL HCL IV 5 MG/ML 20ML IV PRN (16:16)
[2021-07-05] MEDS ORDERED: SCOPOLAMINE 1 MG TDSY TD ONE (16:24)
[2021-07-05] MEDS ORDERED: ROCURONIUM BROMIDE 10 MG/ML 5 ML VIAL IV ONE (16:33)
[2021-07-05] MEDS ORDERED: LARYING-O-JET KIT (LTA) ONE (16:33)
[2021-07-05] MEDS ORDERED: LIDOCAINE 2% 2 ML VIAL/AMP(20MG/ML) INFIL ONE (16:33)
[2021-07-05] MEDS ORDERED: PROPOFOL IV EMULSION 10 MG/ML 20 ML VIAL IV ONE (16:33)
[2021-07-05] MEDS ORDERED: fentaNYL citrate 100 MCG/2 ML VIAL ONE (16:34)
[2021-07-05] MEDS ORDERED: MIDAZOLAM HCL 1 MG/ML 2ML VIAL ONE (16:34)
[2021-07-05] MEDS ORDERED: ONDANSETRON INJ 2 MG/ML 2 ML VIAL ONE (17:19)
[2021-07-05] MEDS ORDERED: NEOSTIGMINE METHYLSULFATE 1 MG/ML 10ML VIAL ONE (17:19)
[2021-07-05] MEDS ORDERED: GLYCOPYRROLATE 0.2 MG/ML VIAL ONE (17:19)
--- NOTE | 2021-07-05 18:13 | Anesthesiology Progress Note ---
Date of Service July 05, 2021 Anesthesia Post Procedure Vital Signs Vital Signs: Temp Pulse Pulse Resp BP BP Pulse Ox 07/05/21 18:05 75 24 150/82 H 97 07/05/21 17:55 85 20 151/90 H 98 07/05/21 17:47 36.5 C 104 H 19 154/109 H 96 07/05/21 16:11 36.7 C 67 20 120/81 95 07/05/21 14:29 36.7 C 78 16 120/73 93 07/05/21 07:03 36.9 C 77 18 126/81 93 07/04/21 23:00 36.8 C 86 20 119/78 93 07/04/21 18:39 37.5 C 82 16 138/84 95 Pain Intensity Face: Pain Intensity: 3 Throat: Pain Intensity: 3 Transfer of Care Handoff Completed per policy Notes Mental Status: alert / awake / arousable Patient Amnestic to Procedure: Yes Nausea / Vomiting: adequately controlled Pain: adequately controlled Airway Patency, RR, SpO2: stable & adequate BP & HR: stable & adequate Hydration State: stable & adequate Anesthetic Complications: no major complications apparent and Pt Satisfied with anesthetic care
--- NOTE | 2021-07-05 18:18 | Hospitalist Progress Note ---
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 Marshall and plan is for surgical extraction of abscessed teeth and I&D (2) Aortic ectasia, thoracic: Plan: mild, measure 3.6cm from CT in 01/2021 (3) B12 deficiency: Plan: Previously severe with neurological manifestations Continue B12 oral supplementation, Level 512 in June (4) Benzodiazepine dependence: Plan: Routinely taken Xanax TID, will continue during hospital admission to avoid withdrawal (5) Emphysema lung: Plan: No known COPD of lung function testing. Noted on prior imaging. (6) Anxiety: Plan: Continue Xanax as above (7) TMJ dysfunction: Plan: Continue Soma and gabapentin Plan: VTE Prophylaxis - low risk, SCDs Diet -currently n.p.o. for planned procedure. Initiate dietary intake postoperatively If continues to do well, can likely discharge to home tomorrow Plan of care discussed with Dr. Martinez. Further orders as warranted. Admission and Anticipated Discharge Date Admission Date: July 04, 2021 Subjective Patient seen on daily rounds today. Hospitalized yesterday with facial regulo lulitis involving the floor of his mouth. Has very poor dentition with multiple dental caries. CT scan showed cellulitis and concern for Kathleen's angina. Patient reports the pain was excruciating. She was hospitalized and started on IV Rocephin and Decadron and reports that her symptoms have "95% improved". She was seen by by oral maxillofacial surgeon Review of Systems Review of Systems: All systems reviewed and are unremarkable except as noted in HPI and below Denies fevers, chills, headache, nasal congestion, sore throat, cough, chest pain, shortness of breath, palpitations, orthopnea, PND, abdominal pain, nausea, vomiting, diarrhea, constipation, dysuria, hematuria, frequency, back pain, joint pain or swelling, easy bruising or bleeding, skin lesions or rashes. Physical Exam Physical Exam: General: Resting comfortably in her hospital bed. She does not appear to be ill or toxic. NAD. HEENT: Head is AT/NC very poor dentition. She does not appear to have evidence of facial cellulitis at the time of the exam by myself. The submandibular region is not erythematous. It does seem to be slightly boggy but patient reports that this is her baseline. She does have anterior cervical chain and submandibular lymphadenopathy Neck: No JVD. Negative hepatojugular reflex Cardiac: RRR without M/G/R Lungs: CTA without W/R/R Abdomen: Normoactive X4. Soft and nontender in all quadrants. Extremities: No peripheral clubbing cyanosis or edema Neuro: A&O X4 cranial nerves II through XII are grossly intact no focal neuro deficits Skin: No obvious skin lesions or rashes Psych: Appropriate affect pleasant and cooperative Results & Data Results & Data ([facility]) Vital Signs (Past 12 Hours) Vital Signs Temp Pulse Pulse Resp BP BP Pulse Ox 07/05/21 18:05 75 24 150/82 H 97 07/05/21 17:55 85 20 151/90 H 98 07/05/21 17:47 36.5 C 104 H 19 154/109 H 96 07/05/21 16:11 36.7 C 67 20 120/81 95 07/05/21 14:29 36.7 C 78 16 120/73 93 07/05/21 07:03 36.9 C 77 18 126/81 93 Laboratory Results 07/04/21 11:25 07/04/21 13:03 PG Care Time/CCT Total # of Minutes Spent Total Time Spent with Patient: Total time spent is greater than 50% in coordination of care (as documented) at patient's floor/unit and/or counseling patient: Coding Level of Care Code 40211 Subseq Hosp Care Lvl 2 Diagnoses Facial cellulitis L03.211 Aortic ectasia, thoracic I77.810 B12 deficiency E53.8 Benzodiazepine dependence F13.20 Emphysema lung J43.9 Anxiety F41.9 TMJ dysfunction M26.609
[2021-07-05] MEDS: KETOROLAC TROMETHAMINE 15 MG/ML VIAL IV PRN (18:47)
[2021-07-05] MEDS: GABAPENTIN 400 MG CAP PO SCH (21:49)
[2021-07-05] MEDS: ACETAMINOPHEN 325 MG TAB PO PRN (21:49)
[2021-07-06] MEDS ORDERED: CHECK SCOPOLAMINE PATCH PLACEMENT SCH
[2021-07-06] MEDS ORDERED: MELATONIN 3 MG TAB PO PRN (00:50)
[2021-07-06] MEDS ORDERED: CHLORHEXIDINE GLUCONATE 0.12% 480 ML MT ONE (00:50)
[2021-07-06] MEDS: KETOROLAC TROMETHAMINE 15 MG/ML VIAL IV PRN ×2 (04:00→11:48)
[2021-07-06] MEDS: AMPICILLIN/SULBACTAM SOD 3,000 MG in 0.9 % SODIUM CHLORIDE 100 ML IV SCH ×2 (04:01→07:36)
[2021-07-06 06:32] LABS: Basophils # (auto) 0.01 K/uL (0-0.2); Basophils % (auto) 0.1 %; Hematocrit (blood only) 35.6 % (37-47); Immature Granulocytes # (auto) 0.02 K/uL (0.00-0.02); Immature Granulocytes % (auto) 0.2 %; Lymphocytes # (auto) 2.91 K/uL (1.2-3.4); Lymphocytes % (auto) 22.8 %; Mean Corpuscular Hemoglobin 30.2 pg (25-34); Mean Corpuscular Hgb Conc 33.7 g/dL (32-36); Mean Corpuscular Volume 89.7 fL (80-100); Mean Platelet Volume 10.1 fL (7.4-10.4); Monocytes # (auto) 0.97 K/uL (0.11-0.59); Monocytes % (auto) 7.6 %; Neutrophils # (auto) 8.87 K/uL (1.4-6.5); Neutrophils % (auto) 69.3 %; Platelet Count 344 K/uL (130-400); RDW Coefficient of Variation 15.5 % (11.5-14.5); RDW Standard Deviation 51.4 fL (36.4-46.3); Red Blood Count 3.97 M/uL (4.2-5.4); White Blood Count 12.78 K/uL (4.8-10.8)
[2021-07-06 06:40] LABS: Calcium 8.4 mg/dl (8.5-10.1); Creatinine Clr Calc Pharmacy 104.7 ml/min; Est GFR (African American) 120.3 ml/min; Est GFR (Non-African American) 103.8 ml/min
[2021-07-06] MEDS: LACTATED RINGER'S 1,000 ML IV SCH (07:28)
[2021-07-06] MEDS: DOCUSATE SODIUM 100 MG CAP PO SCH (07:31)
[2021-07-06] MEDS: GABAPENTIN 100 MG CAP PO SCH (07:31)
[2021-07-06] MEDS: CYANOCOBALAMIN 500 MCG TABLET (VITAMIN B-12) PO SCH (07:32)
[2021-07-06] MEDS: CHOLECALCIFEROL 1,000 UNITS 25 MCG TAB PO SCH (07:32)
[2021-07-06] MEDS: ASCORBIC ACID 500 MG TAB PO SCH (07:32)
[2021-07-06] MEDS: SENNA 8.6 MG TAB PO SCH (07:32)
[2021-07-06] MEDS: THIAMINE HCL 100 MG TAB PO SCH (07:32)
[2021-07-06] MEDS: POLYETHYLENE (MIRALAX) 17 GM PACK PO SCH (07:32)
[2021-07-06] MEDS: ALPRAZolam 0.5 MG TABLET PO SCH (07:34)
[2021-07-06] MEDS: CARISOPRODOL 350 MG TABLET PO SCH (07:41)
[2021-07-06] MEDS: ACETAMINOPHEN 325 MG TAB PO PRN (07:46)
--- NOTE | 2021-07-06 10:08 | Oral/Maxillofacial Progress Nt ---
Date of Service July 06, 2021 Assessment & Plan Admission and Anticipated Discharge Date Admission Date: July 04, 2021 Subjective Post Op infection evaluation The left side infected area is now responding very well. Swelling is soft and the extraction site is healing well No drainage is noted. Infection has responded very well to the antibiotics and the I and D and the extraction of # 18,19 I requested that the patient continue with massage, heat and wound care. At this time the area is healing well and is responding well to treatment. PLAN OK for discharge Augmentin 875 x 10 days Zofran Tylenol # 3 a x 12 as needed for pain I will see Luis Eduardo in 10-14 days for follow up in my office Results & Data ([facility]) Vital Signs (Past 12 Hours) Vital Signs Temp Pulse Resp BP BP Pulse Ox 07/06/21 07:29 36.7 C 69 18 150/91 H 96 07/05/21 22:30 36.3 C L 74 18 101/67 93 PG Care Time/CCT Total # of Minutes Spent Total Time Spent with Patient: Total time spent is greater than 50% in coordination of care (as documented) at patient's floor/unit and/or counseling patient: Coding Level of Care Code 49091 Subseq Hosp Care Lvl 1
--- NOTE | 2021-07-06 10:31 | Operative Report ---
PG Post Operative Report Pre & Post Diagnosis Operation Date: 07/05/21 16:45 Pre-Op Diagnosis: Facial cellulitis; Tooth decayed; TMJ dysfunction Post-Op Diagnosis: Facial cellulitis; Tooth decayed; TMJ dysfunction I identified the patient and participated in the time-out.: Yes Procedure Operation Date: 07/05/21 16:45 Actual Procedures p Left Facial Incision and Drainage(Left) - Esdras Marshall DMD s Teeth Extracation #18 and 19(Left) - Esdras Marshall DMD Surgeon Esdras Marshall DMD Assisted Living Care Manager none Estimated Blood Loss 2 Findings Consistent with Post-Op Diagnosis infection to left floor of the mouth and infected # 18,19 Specimens none Drains none Anesthesia Type General Complications none Indications acute facial and floor of the mouth swelling failed out patient therapy. Description of Procedure Actual Procedures p Incision and Drainage Submandibular Abscess; Removal of Tooth #18 and 19 (Not Applicable) - Esdras Marshall DMD Once cleared for surgery general anesthesia was achieved, the eyes were protected by the anesthesia dept criteria. A time out was take for patient ID, antibiotics, equipment and position verification once all agreed the procedure began. Local anesthesia using Marcaine with a vasoconstrictor ( 1.8 ml per site) given into left inferior alveolar nerve A throat pack was placed after the oral cavity was irrigated with saline. Once a surgical level of anesthesia was obtained and the local anesthesia was given time for the blocks the surgery was started. I turned my attention to the infection which was located in the floor of the mouth and submental area. The tongue was elevated and there was also swelling associated with tooth # 18,19 ( see CT scan report) Incision and Drainage Using a 15 blade an incision was made lateral to the alveolar ridge and medial to the duct of the submandibular gland. Once the incision was made a lot of pus extruded from the site. A curved hemostat was carefully placed into the infected space along the medial side of the lower jaw and into the sublingual space. Some further drainage was now allowed to escape. I palpated the chin and submental area and no further drainage was expressed. The area was irrigated with at least 100 ml of NS solution. I now turned my attention to remove the # 18 and # 19 Lower # 18 and # 19 The full thick Muco-periosteal flap was made on the facial aspect from # 17-21. The flap was reflected to expose the the subperiosteal space the bone adjacent to # 18 and 19. The rogue was used to remove bone, the teeth were removed with a 301 elevator, the mental nerve was intact, there was a large amount of granulation tissue on the apex and some more pus that was expressed. There was very irregular bone as a result of the long standing infection causing bone necrosis. I used a drill with a round bur to recontour the bone. The site was now closed with a 2-0 chromic. When I completed the procedure were I inspected the sites to insure all bleeding was controlled. Anesthesia inserted an oral gastric tube for GI decompression. I removed the throat pack and suctioned the throat. A gauze pressure dressing was placed. All instrument and sponge count was correct. the patient was allowed to awake from the anesthesia. Once full awake the anesthesia tube was removed and the patient was taken to the recovery room with all vital sign stable. The patient tolerated the surgery very well. I will follow the patient in my office, Rx and instructions will be given upon discharge. I attest to the content of the Intraoperative Record and any orders documented therein. Any exceptions are noted below.
--- NOTE | 2021-07-06 12:34 | Discharge Summary ---
Date of Service July 06, 2021 Admission HPI Per Admitting Provider Luis Eduardo Yu is a 56 year old female who presents to the ER with left sided floor of mouth, left molar and left neck pain. No objective fevers but having chills yesterday. Pain on her teeth have been present for the last week but swelling under her chin and neck started yesterday and progressively getting worse today. Mild trismus. She was started on clindamycin yesterday for possible tooth abscess. In the ER CT was concerning for floor of mouth cellulitis and concern for Brice's angina. ER provider discussed with ENT and recommended admission under medicine for intravenous antibiotics. Principal Diagnosis Facial cellulitis secondary to abscessed teeth Discharge Exam GENERAL: 56 yo well-developed, well-nourished. NAD. FACE/MOUTH: Poor dentition, no erythema of face. L ACC adenopathy appreciated. LUNGS: Clear to auscultation bilaterally. No accessory muscle use. No W/R/R. CARDIOVASCULAR: Regular rate and rhythm. No M/G/R. No JVD. ABDOMEN: Soft, non-tender and non-distended. No palpable masses. Bowel sounds normoactive x 4 quad. SKIN: Warm, dry, intact. No rashes or lesions. Discharge Data Allergies Allergy/AdvReac Type Severity Reaction Status Date / Time clarithromycin Allergy Intermediate RASH Verified 06/26/21 09:27 Consultations 07/04/21 14:24 Consult Oromaxillofacial Surgery Stat Seen by Dr. Marshall, please see his consult note and op note for further details Procedures Performed Operation Date: 07/05/21 16:45 Actual Procedures p Left Facial Incision and Drainage(Left) - Esdras Marshall DMD s Teeth Extracation #18 and 19(Left) - Esdras Marshall DMD Ordered Studies 07/06/21 05:51 07/06/21 05:[address] 07/04/21 13:03 CT SCAN OF THE NECK WITH IV CONTRAST CLINICAL HISTORY: Dental pain. Facial pain and swelling. COMPARISON STUDY: CT of the cervical spine dated 01/21/2021. TECHNIQUE: Following the IV administration of 96 cc of Optiray 320, CT scan of the soft tissues of the neck was performed from the skull base to the upper chest. Images are reviewed in the axial, sagittal, and coronal planes. IV contrast was administered without complication. A dose lowering technique was utilized adhering to the principles of ALARA. CT DOSE: 246.36 mGy.cm FINDINGS: Pharynx: There is significant inflammation involving the floor of the mouth, left side greater than right. Infiltration is seen throughout the sublingual soft tissues and extending into the submental region. There is also semitubular soft tissue infiltration. Fluid and mild inflammatory change is seen around both submandibular glands tracking inferiorly. There is mild infiltration of the left parapharyngeal fat. Phlegmonous change is seen at the left floor of the mouth with no organized/renal fluid collection. The pharyngeal airway is patent. There is no evidence of mass lesion. The vocal cords are symmetric. The preve rtebral/retropharyngeal soft tissues are within normal limits. The epiglottis is normal. Lymphadenopathy: Prominent submandibular lymph nodes are likely reactive. No pathological adenopathy is identified Thyroid: Normal in size and attenuation. Salivary glands: The parotid glands are within normal limits. As noted above, there is fluid and infiltration identified around both submandibular glands. Brain parenchyma: The visualized brain parenchyma at the skull base is normal in appearance. Vascular structures: The carotid arteries and jugular veins are patent bilaterally. Skeletal structures: Imaged portions of the calvarium at the skull base are within normal limits. The cervical spine appears intact. Orbits: The bony orbits are intact. Orbital contents are normal in appearance. Sinuses and mastoids: The paranasal sinuses are clear. The mastoid air cells are well pneumatized. Dentition: There are scattered dental caries. Periapical lucencies are seen involving left maxillary molars on axial images #140 and #148. Lung apices: Emphysematous change is noted. Upper lobe lung parenchyma is otherwise clear as imaged. IMPRESSION: 1. Findings are consistent with a severe cellulitis involving the floor of the mouth as detailed above. This is likely odontogenic in origin, and developing Brice's angina would be impossible to exclude. Clinical correlation will be required and close follow-up is recommended. 2. There is phlegmonous change involving the left floor of the mouth with no organized/drainable fluid collection identified. 3. There are scattered dental caries, as well as periapical lucencies involving left maxillary molars. 4. Mild infiltration around the submandibular glands is likely secondary to the infectious process discussed above. 5. There is no airway compromise at this time. 6. Emphysema. ACT 112: Negative or not required by law. Electronically signed by: Michael Desir M.D. 07/04/2021 2:01 PM Chest X-Ray 07/04/21 14:40 SINGLE VIEW CHEST CLINICAL HISTORY: Atypical chest pain FINDINGS: An AP, portable, upright chest radiograph is compared to chest x-ray and chest CT dated 01/21/2021. The cardiomediastinal silhouette is unremarkable. Emphysema and chronic interstitial thickening is similar to previous. There is mild chronic elevation of the left hemidiaphragm. Airspace opacities are seen at both lung bases. No large pleural effusion or pneumothorax is seen. The skeletal structures are osteopenic. The bony thorax is grossly intact. IMPRESSION: 1. Bibasilar airspace opacities could represent atelectasis versus an infectious/inflammatory pneumonitis. Clinical correlation will be required and radiographic follow-up to resolution is recommended. 2. Emphysema. ACT 112: Negative or not required by law. Electronically signed by: Michael Desir M.D. 07/04/2021 3:10 PM Hospital Course (1) Facial cellulitis: Floor of mouth cellulitis due to broken abscessed teeth --> s/p I&D and te eth extraction by Dr. Marshall Significant clinical improvement overnight with IV antibiotic therapy and steroids Seen this AM by Dr. Marshall, plan for ongoing abx as outpatient in form of Augmentin, does not appear any cultures were taken Pain medications ordered as well, Tylenol #3 (ordered by Dr. Marshall) Outpatient fu with him in 10-14 days per note Mild elevated WBC noted, but not surprising as she is post op and does have an infection Per Dr. Marshall, pt stable for discharge from his standpoint and recommends compliance with antibiotics and outpatient f/u (2) Aortic ectasia, thoracic: mild, measure 3.6cm from CT in 01/2021 (3) B12 deficiency: Previously severe with neurological manifestations Continue B12 oral supplementation, Level 512 in June (4) Benzodiazepine dependence: Routinely taken Xanax TID, will continue during hospital admission to avoid withdrawal (5) Emphysema lung: No known COPD of lung function testing. Noted on prior imaging. (6) Anxiety: Continue Xanax as above (7) TMJ dysfunction: Continue Soma and gabapentin Discharge home today with Augmentin as rx'd by behavioral health care coordinator and outpatient f/u. Pain meds as prescribed. Post op care as instructed. Discussed plan w/ Dr. Cox who has also seen pt prior to discharge. Total Time Total Time Spent Total Time Spent (In Minutes): >30 minutes Discharge Plan Discharge Items Patient Disposition: Home - Self-Care Reason For Visit: FACIAL CELLULITIS Discharge Diagnosis: s/p facial and neck infection, carious fractured teeth lower left side Condition on Discharge: Good Activity: Resume your previous activity Lifting: Gradually increase as tolerated Bathing: No limitations Exercise/Sports: Gradually increase as tolerated Driving/Machine Use: Resume 1 day after discharge Weightbearing: Full weightbearing Non-emergency contact: Surgeon Call non-emergency contact if: you have any medication questions, your symptoms worsen, your temperature is above 101.5 and your wound has increased drainage Follow-up/Referrals: Esdras Marshall DMD [Physician] - 07/18/21 1:00 pm Godwin Wilson M.D. [Primary Care Provider] - Diet: Other - See Diet Comment Diet Comment: start with clear then full then dental soft Addtl Attending Provider Instructions: ADDITIONAL ACTIVITY RECOMMENDATIONS: * Fajardo teeth after every meal. It is very important to keep your mouth clean to prevent infection. * Once you get home rinse with the Peridex as directed then 2 x a day * it is very important to keep well hydrated, this prevents fever and possible dry socket pain SPECIAL CARE INSTRUCTIONS: *It is not uncommon that between day 2-4 that your swelling will be at its worst this is very normal, do not be alarmed. * Keep ice on the side of your face for the next 24 to 36 hours. This will help keep the swelling down. * After 36 hours, apply heat (hot water bottle or heating pad) for the next two days, as often as possible. * Tomorrow start rinsing your mouth with 1/2 teaspoon salt in 8 ounces warm water. This rinse should be used every 4-6 hours. * You may experience slight nausea. To prevent this, never take your medication on an empty stomach. If nauseated, take small sips of kayden bryant until you feel better; then you may start on applesauce and toast. * Some swelling is common. It should gradually decrease within 4-5 days. * A certain amount of bleeding is to be expected. It is often possible to control mild oozing by placing folded gauze over the area and biting down for 30 minutes. If you are unable to control excessive bleeding, call Dr Marshall at [phone] * You may experience some discomfort for a few days. If pain or swelling increases, Call Dr Marshall * Return to the office for a follow up check up on: JULY 18 at 1 pm * office address--[address]. phone # [phone] Pending Studies at Discharge: No Stand-Alone Forms: My [facility], Smoking Cessation Medications and DC Order Prescriptions: New fluconazole [Diflucan] 150 mg tablet 150 mg PO Q3D Qty: 2 RF: 0 Continued cyanocobalamin (vitamin B-12) 1,000 mcg/mL solution 1,000 mcg IM .COMPLEX 90 Days Qty: 6 RF: 3 amoxicillin-pot clavulanate 875-125 mg tablet 1 tab PO Q12H Qty: 20 RF: 0 ondansetron HCl 8 mg tablet 8 mg PO Q8H PRN (Reason: nausea and vomiting) Qty: 10 RF: 0 acetaminophen-codeine 300-30 mg tablet 1 tab PO Q4H PRN (Reason: pain) Qty: 12 RF: 0 gabapentin 400 mg capsule 400 mg PO HS RF: 0 Antivert 50 mg tablet 50 mg PO TID PRN (Reason: dizziness) Qty: 60 RF: 0 thiamine HCl (vitamin B1) [Vitamin B-1] 100 mg tablet 100 mg PO QAM Qty: 90 RF: 3 cyanocobalamin (vitamin B-12) 1,000 mcg tablet 1,000 mcg PO QAM Qty: 90 RF: 3 cholecalciferol (vitamin D3) 25 mcg (1,000 unit) capsule 25 mcg PO DAILY Qty: 90 RF: 3 ascorbic acid (vitamin C) [Vitamin C] 500 mg tablet 500 mg PO QAM Qty: 90 RF: 3 carisoprodol 350 mg tablet 350 mg PO TID RF: 0 alprazolam 1 mg tablet 1 mg PO TID PRN (Reason: Anxiety) RF: 0 acetaminophen [Tylenol Extra Strength] 500 mg Tablet 1,000 mg PO TID PRN (Reason: Pain) RF: 0 ibuprofen 200 mg Tablet 600 - 800 mg PO Q6H PRN (Reason: Pain) RF: 0 albuterol sulfate 90 mcg/actuation HFA aerosol inhaler 2 puff INHALATION QID PRN (Reason: Shortness Of Breath) RF: 0 sennosides [Senokot] 8.6 mg Tablet 8.6 mg PO QAM Qty: 30 RF: 0 polyethylene glycol 3350 [Miralax] 17 gram Powder In Packet 17 g PO DAILY Qty: 30 RF: 0 nicotine (polacrilex) [Nicorette] 2 mg Gum 2 mg MT PRN PRN (Reason: nicotine cravings) Qty: 100 RF: 0 docusate sodium 100 mg Capsule 100 mg PO BID Qty: 60 RF: 0 gabapentin 100 mg Capsule 200 mg PO TID Qty: 180 RF: 0 Discontinued clindamycin HCl 300 mg capsule 300 mg PO TID RF: 0 Discharge Orders: Discharge Order (Routine); Ordered 07/06/21 Ordered By: Nuzhat Ladd Admission Data Admit Date/Time: 07/04/21 16:00 Attending Provider: Josué Cox Admit Provider: Tushar Barry Primary Care Provider: Godwin Wilson Other Providers: Naseem Martinez ; Esdras Marshall Jonathan M. Other Interventions: Discharge Summary Assessment (RN) Last Done: 07/06/21 11:19 Coding Level of Care Code D/C DAY MANAGEMENT >30 MINS Diagnoses Facial cellulitis L03.211 Aortic ectasia, thoracic I77.810 B12 deficiency E53.8 Benzodiazepine dependence F13.20 Emphysema lung J43.9 Anxiety F41.9 TMJ dysfunction M26.609
== END 2021-07-06 14:15 | disposition home or self-care (01) ==
LOC: ED 10:50 → INTOOBSV 16:00 → EDINP 16:00 → SUATTDRO 16:00 → EDINP 18:25 → 3W 18:44